=== PATIENT | male | born 1960 | race African-American/Black ===

== ENCOUNTER 2017-12-16 10:51 | Inpatient (IN) | payer OTHER ==
[2017-12-16 10:58] VITALS: BMI 32.3
--- NOTE | 2017-12-16 12:09 | PDOC ---
History of Present Illness - General History Source: Patient Exam Limitations: No Limitations - History of Present Illness Initial Comments: 12/16/17 13:07 The patient is a 57 year old male with a significant PMH of asthma, HTN, and hepatitis C who presents to the emergency department with hemoptysis over the past 3 days. He reports coughing up about 1 pint of edvin red blood with associated wheezing and shortness of breath over the last 3 days, and notes associated substernal chest pain only when he coughs. He reports using his Nebulizer 4 times over the past 3 days to no relief. The patient reports eating soup earlier today and coughing it up with blood. He also notes some dark stool and some nausea over the past 3 days but denies vomiting. The patient denies dizziness or lightheadedness. He denies any fevers or weight loss. He denies contact with incarcerated people. The patient denies headache and dizziness. Denies chills, vomiting, diarrhea, and constipation. Denies dysuria, frequency, urgency, or hematuria. Allergies: NKA Past surgical history: None reported. Social history: No reported cigarette, alcohol, or drug use. PCP: None reported. <Yasmany Womack - Last Filed: 12/16/17 17:31> <Aicha Ram - Last Filed: 12/19/17 13:49> - General Chief Complaint: Hemoptysis Stated Complaint: COUGHING BLOOD Time Seen by Provider: 12/16/17 12:02 Past History <Yasmany Womack - Last Filed: 12/16/17 17:31> - Past Medical History Asthma: Yes Cancer: No Cardiac Disorders: (heart murmur) CVA: No COPD: No CHF: No Dementia: No Diabetes: No GI Disorders: No Disorders: No HTN: Yes Hypercholesterolemia: No Liver Disease: No Seizures: No Thyroid Disease: No - Immunization History Immunization Up to Date: Yes - Suicide/Smoking/Psychosocial Hx Smoking History: Never smoked Have you smoked in the past 12 months: No Information on smoking cessation initiated: No Hx Alcohol Use: No Drug/Substance Use Hx: No Substance Use Type: None <Aicha Ram - Last Filed: 12/19/17 13:49> - Past Medical History Allergies/Adverse Reactions: Allergies Allergy/AdvReac Type Severity Reaction Status Date / Time No Known Allergies Allergy Verified 12/16/17 11:59 Home Medications: Ambulatory Orders Verapamil HCl [Verapamil ER] 240 mg PO DAILY 08/02/15 Azithromycin [Zithromax -] 250 mg PO UTDICT #6 tab 03/10/16 Ledipasvir/Sofosbuvir [Harvoni 90-400 mg Tablet] 1 each PO DAILY 03/10/16 levoFLOXacin [Levaquin -] 500 mg PO DAILY #7 tablet 06/03/16 Emtricitab/Rilpiviri/Tenof Ala [Odefsey Tablet] 1 each PO DAILY 12/17/17 Review of Systems - Review of Systems Able to Perform ROS?: Yes Comments:: 12/16/17 13:08 GENERAL/CONSTITUTIONAL: No fever or chills. No weakness. HEAD, EYES, EARS, NOSE AND THROAT: No change in vision. No ear pain or discharge. No sore throat. CARDIOVASCULAR: (+) Substernal chest pain only associated with cough. (+) Shortness of breath. RESPIRATORY: (+) Hemoptysis with associated wheezing. No cough, wheezing, or hemoptysis. GASTROINTESTINAL: (+) Dark stool. (+) Nausea. No vomiting, diarrhea or constipation. GENITOURINARY: No dysuria, frequency, or change in urination. MUSCULOSKELETAL: No joint or muscle swelling or pain. No neck or back pain. SKIN: No rash NEUROLOGIC: No headache, vertigo, loss of consciousness, or change in strength/ sensation. ENDOCRINE: No increased thirst. No abnormal weight change. HEMATOLOGIC/LYMPHATIC: No anemia, easy bleeding, or history of blood clots. ALLERGIC/IMMUNOLOGIC: No hives or skin allergy. <Yasmany Womack - Last Filed: 12/16/17 17:31> *Physical Exam - Vital Signs Last Vital Signs Temp Pulse Resp BP Pulse Ox 98.2 F 82 18 136/80 97 12/16/17 10:55 12/16/17 10:55 12/16/17 10:55 12/16/17 10:55 12/16/17 10:55 <Yasmany Womack - Last Filed: 12/16/17 17:31> - Vital Signs Last Vital Signs Temp Pulse Resp BP Pulse Ox 98.2 F 82 18 136/80 97 12/16/17 10:55 12/16/17 10:55 12/16/17 10:55 12/16/17 10:55 12/16/17 10:55 <Aicha Ram - Last Filed: 12/19/17 13:49> Heart Score/ECG Review - ECG Impressions Comment:: EKG read 18:08- afib rate 96 bpm, inv T to inf leads and V4-6 Similar to prior EKG <Aicha Ram - Last Filed: 12/19/17 13:49> ED Treatment Course - LABORATORY CBC & Chemistry Diagram: 12/16/17 13:15 12/16/17 13:15 <Yasmany Womack - Last Filed: 12/16/17 17:31> - LABORATORY CBC & Chemistry Diagram: 12/19/17 06:40 12/19/17 06:40 <Aicha Ram - Last Filed: 12/19/17 13:49> Medical Decision Making - Medical Decision Making Pt initially admitted based on amount of gross hemoptysis. On initial history I discussed concern for TB, he did not endorse any prior history. However, subsequently, he endorsed history of prior treatment for TB when evaluated by pulm. Will isolate. Admitted to hospitalist. <Aicha Ram - Last Filed: 12/19/17 13:49> *DC/Admit/Observation/Transfer - Attestations Scribe Attestion: 12/16/17 13:08 Documentation prepared by Yasmany Womack, acting as medical technologist blood bank for Aicha Ram MD. <Yasmany Womack - Last Filed: 12/16/17 17:31> - Discharge Dispostion Admit: Yes <Aicha Ram - Last Filed: 12/19/17 13:49> Diagnosis at time of Disposition: Pneumonia Asthma Qualifiers: Asthma severity: unspecified severity Asthma persistence: unspecified Asthma complication type: unspecified Qualified Code(s): J45.909 - Unspecified asthma, uncomplicated Asthma exacerbation Qualifiers: Asthma severity: unspecified severity Asthma persistence: unspecified Qualified Code(s): J45.901 - Unspecified asthma with (acute) exacerbation - Discharge Dispostion Condition at time of disposition: Stable
[2017-12-16] MEDS ORDERED: guaiFENesin/CODEINE 10 ML UNIT-DOSE CUPS PO ONE (13:07)
[2017-12-16] MEDS ORDERED: predniSONE 20 MG TABLET (UD) PO ONE (13:07)
[2017-12-16 13:26] LABS: BASO % 0.9 % (0-2.0); EOS % 2.4 % (0-4.5); HEMATOCRIT 40.6 % (35.4-49); HEMOGLOBIN 13.4 GM/dL (11.7-16.9); LYMPH % 25.5 % (8-40); MCH 35.4 pg (25.7-33.7); MCHC 33.1 g/dl (32.0-35.9); MEAN PLT VOLUME 9.1 fl (7.5-11.1); MONO % 10.1 % (3.8-10.2); NEUT % 61.1 % (42.8-82.8); PLATELET COUNT 65 K/MM3 (134-434); RBC 3.79 M/mm3 (4.00-5.60); WHITE BLOOD COUNT 3.8 K/mm3 (4.0-10.0)
[2017-12-16] MEDS: ALBUTEROL SO4 2.5/IPRATROPIUM 0.5 INH SOL 3 ML VIAL.NEB. NEB SCH ×2 (13:28→13:51)
[2017-12-16 14:02] LABS: ALBUMIN 2.8 g/dl (3.4-5.0); ANION GAP 5 (8-16); BILIRUBIN,TOTAL 2.7 mg/dL (0.2-1.0); BLOOD UREA NITROGEN 10 mg/dL (7-18); CALCIUM 7.9 mg/dL (8.5-10.1); CHLORIDE 109 mmol/L (98-107); CO2 27 mmol/L (21-32); CREATININE 0.9 mg/dL (0.7-1.3); GLUCOSE,RANDOM 107 mg/dL (74-106); POTASSIUM 4.2 mmol/L (3.5-5.1); SGOT/AST 74 U/L (15-37); SGPT/ALT 50 U/L (12-78); SODIUM 141 mmol/L (136-145); TOT PROT 7.2 g/dl (6.4-8.2)
[2017-12-16 14:03] LABS: ALK PHOS 98 U/L (45-117)
[2017-12-16] MEDS ORDERED: AZITHROMYCIN IVPB 500 MG in DEXTROSE 5%-WATER - 250 ML IVPB ONE (15:31)
[2017-12-16] MEDS ORDERED: CEFTRIAXONE 1 GM in DEXTROSE 5%-WATER - 50 ML IVPB ONE (15:31)
--- NOTE | 2017-12-16 17:09 | HP ---
Admitting History and Physical - Admission History of Present Illness: HPI Briefly, this 57 year old male with a significant PMH of asthma, HTN, cirrhosis , used to do heroine, TB x2, once treated 20 years ago and again in 2005. In 2005 he also had pleural effusion s/p CT placement with pustulant TB drainage, he reports this happened while he was being treated for Hep C. Today he presents with hemoptysis over the past 3 days, dark blood then light then dark. He had increased sob and using his inhaler with little relief. Today he was on the way to PMD, opened window in car which incited a coughing attack and he coughed up blood and chicken noodle soup. He told his friend to take take him to ED. He denies fever, chills, dai, dizziness, chest pain. He was incarcerated many years ago. History Source: Patient Limitations to Obtaining History: No Limitations - Past Medical History Cardiovascular: Yes: HTN Pulmonary: Yes: Asthma Hepatobiliary: Yes: Cirrhosis, Hepatitis C (s/p harvoni) - Smoking History Smoking history: Never smoked Have you smoked in the past 12 months: No - Alcohol/Substance Use Hx Alcohol Use: No - Social History Usual Living Arrangement: Yes: Alone ADL: Independent Occupation: unemployed History of Recent Travel: No Home Medications - Allergies Allergies/Adverse Reactions: Allergies Allergy/AdvReac Type Severity Reaction Status Date / Time No Known Allergies Allergy Verified 12/16/17 11:59 - Home Medications Home Medications: Ambulatory Orders Verapamil HCl [Verapamil ER] 240 mg PO DAILY 08/02/15 Azithromycin [Zithromax -] 250 mg PO UTDICT #6 tab 03/10/16 Ledipasvir/Sofosbuvir [Harvoni 90-400 mg Tablet] 1 each PO DAILY 03/10/16 levoFLOXacin [Levaquin -] 500 mg PO DAILY #7 tablet 06/03/16 Unobtainable [Unobtainable] 12/16/17 Family Disease History - Family Disease History Family Disease History: CA: Mother (bone), Other: Father (unknown medical problems) Review of Systems - Review of Systems Constitutional: reports: No Symptoms Eyes: reports: No Symptoms HENT: reports: No Symptoms Neck: reports: No Symptoms Cardiovascular: reports: No Symptoms Respiratory: reports: Hemoptysis, SOB Gastrointestinal: reports: No Symptoms Genitourinary: reports: No Symptoms Musculoskeletal: reports: No Symptoms Integumentary: reports: No Symptoms Neurological: reports: No Symptoms Endocrine: reports: No Symptoms Hematology/Lymphatic: reports: No Symptoms Physical Examination Vital Signs: Vital Signs Temperature 98.2 F 12/16/17 10:55 Pulse Rate 82 12/16/17 10:55 Respiratory Rate 18 12/16/17 10:55 Blood Pressure 136/80 12/16/17 10:55 O2 Sat by Pulse Oximetry (%) 97 12/16/17 10:55 Constitutional: Yes: Calm Eyes: Yes: Conjunctiva Clear HENT: Yes: Atraumatic Neck: Yes: Supple Cardiovascular: Yes: Regular Rate and Rhythm, S1, S2 Respiratory: Yes: Regular, Diminished (clear), Rhonchi Gastrointestinal: Yes: Normal Bowel Sounds, Soft, Abdomen, Obese Renal/: Yes: WNL Musculoskeletal: Yes: WNL Extremities: Yes: WNL Edema: No Neurological: Yes: Alert, Oriented, Cran Nerves II-XII Intact Psychiatric: Yes: Alert, Oriented Labs: CBC, BMP 12/16/17 13:15 12/16/17 13:15 Imaging - Results Chest X-ray: Report Reviewed, Image Reviewed Cat Scan: Report Reviewed, Image Reviewed (pleural effusion L>R, pericardial effusion, consolidation v atelectatsis) Assessment/Plan Assessment: 57 year old male admitted with hemoptysis Plan: 1. Hemoptysis with +/- underlying pna, pleural effusion, pericardial effusion - hx of TB - Isolation precautions - Quant gold - AFB x3 - CXR in am - Give x1 dose vanco, received azithro/ceftriaxone - ID for further rec - Pulm seeing 2. Acute Asthma exacerbation - Continue albuteral nebs prn - Start medrol 40mg q8 3. HTN - Continue verapamil 240mg daily 4. Hep c, cirrhosis - Continue harvoni - Check INR 5. Thrombocytopenia - Due to above - Trend - Monitor h&h due to hemoptysis 6. DVT - SCDs Visit type - Emergency Visit Emergency Visit: Yes ED Registration Date: 12/16/17 Care time: The patient presented to the Emergency Department on the above date and was hospitalized for further evaluation of their emergent condition. - New Patient This patient is new to me today: Yes Date on this admission: 12/16/17 - Critical Care Critical Care patient: No
--- NOTE | 2017-12-16 17:41 | PN ---
Progress Note (short form) - Note Progress Note: PULMONARY CONSULTATION DICTATED 12/16/17 IMP HEMOPTYSIS ? PNEUMONIA HEP C CIRRHOSIS ASTHMA H/O TB PLAN IV ANTIBIOTICS INHALED BRONCHODILATORS O2 PRN STEROIDS QUANTIFY HEMOPTYSIS SPUTUM AFB CHECK INR F/U CHEST X-RAYS DR MENA Problem List - Problems (1) Hemoptysis Code(s): R04.2 - HEMOPTYSIS (2) Hepatitis C Code(s): B19.20 - UNSPECIFIED VIRAL HEPATITIS C WITHOUT HEPATIC COMA (3) Pneumonia Code(s): J18.9 - PNEUMONIA, UNSPECIFIED ORGANISM (4) Cirrhosis Code(s): K74.60 - UNSPECIFIED CIRRHOSIS OF LIVER (5) H/O TB (tuberculosis) Code(s): Z86.11 - PERSONAL HISTORY OF TUBERCULOSIS (6) Coagulopathy Code(s): D68.9 - COAGULATION DEFECT, UNSPECIFIED
[2017-12-16] MEDS ORDERED: ALBUTEROL SO4 0.083% IH SOL 2.5 MG/3 ML VIAL.NEB. NEB PRN (17:44)
[2017-12-16 17:47] LABS: URINE APPEARANCE CLEAR; URINE BILIRUBIN NEGATIVE (NEGATIVE); URINE BLOOD NEGATIVE (NEGATIVE); URINE COLOR LTYELLOW; URINE GLUCOSE (UA) NEGATIVE (NEGATIVE); URINE KETONE NEGATIVE (NEGATIVE); URINE LEUK ESTERASE NEGATIVE (NEGATIVE); URINE NITRITE NEGATIVE (NEGATIVE); URINE PROTEIN NEGATIVE (NEGATIVE); URINE UROBILINOGEN NEGATIVE mg/dL (0.2-1.0)
[2017-12-16 18:04] LABS: INR 2.46 (0.82-1.09); PROTHROMBIN TIME (PATIENT) 27.8 SEC (9.98-11.88)
[2017-12-16] MEDS ORDERED: VANCOMYCIN 1,000 MG in DEXTROSE 5%-WATER - 250 ML IVPB ONE (18:15)
[2017-12-16] MEDS: methylPREDNISolone NA SUCC 40 MG/1 ML VIAL IVPUSH SCH (18:30)
--- NOTE | 2017-12-16 18:47 | CON.ID ---
Consult Consult Specialty:: infectious diseases Reason for Consultation:: hemoptysis,lung cavity - History of Present Illness Chief Complaint: [email or web address] History of Present Illness: 57 year old male with a significant PMH of asthma, HTN, cirrhosis, used to do heroine, TB x2, once treated 20 years ago and again in 2005. In 2005 he also had pleural effusion s/p CT placement with pustulant TB drainage, he reports this happened while he was being treated for Hep C. Today he presents with hemoptysis over the past 3 days, dark blood then light then dark. He had increased sob and using his inhaler with little relief. Today he was on the way to [place]D, opened window in car which incited a coughing attack and he coughed up blood and chicken noodle soup. He told his friend to take take him to ED. He denies fever, chills, dai, dizziness, chest pain. He was incarcerated many years ago. according to the patient this attack came on suddenly and that is why he came to the hospital he denies that he does drugs any more or any other issues - History Source History Provided By: Patient Limitations to Obtaining History: No Limitations - Past Medical History Cardio/Vascular: Yes: HTN Pulmonary: Yes: Asthma Hepatobiliary: Yes: Cirrhosis, Hepatitis C (s/p harvoni) - Alcohol/Substance Use Hx Alcohol Use: No - Smoking History Smoking history: Never smoked Have you smoked in the past 12 months: No - Social History ADL: Independent Occupation: unemployed History of Recent Travel: No Home Medications - Allergies Allergies/Adverse Reactions: Allergies Allergy/AdvReac Type Severity Reaction Status Date / Time No Known Allergies Allergy Verified 12/16/17 11:59 - Home Medications Home Medications: Ambulatory Orders Verapamil HCl [Verapamil ER] 240 mg PO DAILY 08/02/15 Azithromycin [Zithromax -] 250 mg PO UTDICT #6 tab 03/10/16 Ledipasvir/Sofosbuvir [Harvoni 90-400 mg Tablet] 1 each PO DAILY 03/10/16 levoFLOXacin [Levaquin -] 500 mg PO DAILY #7 tablet 06/03/16 Emtricitab/Rilpiviri/Tenof Ala [Odefsey Tablet] 1 each PO DAILY 12/17/17 Family Disease History - Family Disease History Family Disease History: CA: Mother (bone), Other: Father (unknown medical problems) Review of Systems - Review of Systems Constitutional: reports: No Symptoms Eyes: reports: No Symptoms HENT: reports: No Symptoms Neck: reports: No Symptoms Cardiovascular: reports: No Symptoms Respiratory: reports: Cough, Hemoptysis, SOB, SOB on Exertion Gastrointestinal: reports: No Symptoms Genitourinary: reports: No Symptoms Breasts: reports: No Symptoms Reported Musculoskeletal: reports: No Symptoms Integumentary: reports: No Symptoms Neurological: reports: No Symptoms Endocrine: reports: No Symptoms Hematology/Lymphatic: reports: No Symptoms Psychiatric: reports: No Symptoms Physical Exam Vital Signs: Vital Signs Temperature 98.2 F 12/16/17 10:55 Pulse Rate 101 H 12/16/17 17:02 Respiratory Rate 18 12/16/17 10:55 Blood Pressure 138/95 12/16/17 17:02 O2 Sat by Pulse Oximetry (%) 97 12/16/17 17:02 Constitutional: Yes: Well Nourished, No Distress, Calm Cardiovascular: Yes: Regular Rate and Rhythm Respiratory: Yes: Regular, Poor Air Entry, Rhonchi, Other Gastrointestinal: Yes: Normal Bowel Sounds, Soft Musculoskeletal: Yes: WNL Extremities: Yes: WNL Neurological: Yes: Alert, Oriented Psychiatric: Yes: Alert, Oriented Labs: CBC, BMP 12/16/17 13:15 12/16/17 13:15 Imaging - Results Chest X-ray: Report Reviewed, Image Reviewed Cat Scan: Report Reviewed, Image Reviewed Assessment/Plan hemoptysis r/o tb h/o of tb hepc cirrhoisis r/o hiv drug abuse plan will start patient on vanco and zosyn await for all results to come back pul on case work up for hiv
[2017-12-17] MEDS: methylPREDNISolone NA SUCC 40 MG/1 ML VIAL IVPUSH SCH ×3 (03:00→17:30)
[2017-12-17 06:41] LABS: HEMOGLOBIN 12.8 GM/dL (11.7-16.9); MCHC 34.7 g/dl (32.0-35.9); MEAN CELL VOLUME 106.5 fl (80-96); MEAN PLT VOLUME 10.4 fl (7.5-11.1); PLATELET COUNT 72 K/MM3 (134-434); RBC 3.47 M/mm3 (4.00-5.60); RDW 14.9 % (11.9-15.9)
[2017-12-17 06:43] LABS: INR 2.21 (0.82-1.09)
[2017-12-17 06:44] LABS: ADD RBC MORPHOLOGY YES
[2017-12-17 07:00] LABS: ALBUMIN 2.5 g/dl (3.4-5.0); ALK PHOS 90 U/L (45-117); ANION GAP 5 (8-16); BLOOD UREA NITROGEN 10 mg/dL (7-18); CALCIUM 7.6 mg/dL (8.5-10.1); CHLORIDE 109 mmol/L (98-107); CO2 25 mmol/L (21-32); CREATININE 0.8 mg/dL (0.7-1.3); GLUCOSE,RANDOM 105 mg/dL (74-106); POTASSIUM 4.2 mmol/L (3.5-5.1); SGOT/AST 59 U/L (15-37); SGPT/ALT 42 U/L (12-78); SODIUM 139 mmol/L (136-145); TOT PROT 6.6 g/dl (6.4-8.2)
[2017-12-17] MEDS ORDERED: PT OWN MED DRAWER 7, Y5N ONE ×3 (08:09→17:28)
[2017-12-17 08:49] LABS: MACROCYTOSIS 2+; PLATELET ESTIMATE DECREASED
--- NOTE | 2017-12-17 08:51 | EKG ---
Test Reason : Blood Pressure : / mmHG Vent. Rate : 096 BPM Atrial Rate : 288 BPM P-R Int : 000 ms QRS Dur : 106 ms QT Int : 394 ms P-R-T Axes : 000 030 214 degrees QTc Int : 497 ms ATRIAL FIBRILLATION PROLONGED QT ABNORMAL ECG WHEN COMPARED WITH ECG OF 10-MAR-2016 18:21, ATRIAL FIBRILLATION HAS REPLACED SINUS RHYTHM Confirmed by JAMA JOSE MD ([id number]) on 12/17/2017 8:50:43 AM Referred By: Confirmed By:JAMA JOSE MD
[2017-12-17] MEDS: VERAPAMIL HCL 240 MG E.R. TABLET (FP) PO SCH (09:26)
[2017-12-17] MEDS ORDERED: PATIENT'S OWN MEDICATION (NON-FORMULARY) (Ledipasvir/Sofosbuvir [Harvoni 90-400 Mg Tablet] PO SCH (10:00)
[2017-12-17] MEDS ORDERED: PATIENT'S OWN MEDICATION (NON-FORMULARY) (Verapamil Hcl [Verapamil Er] 240 MG) PO SCH (10:00)
--- NOTE | 2017-12-17 10:42 | PN ---
Physical Exam: SUBJECTIVE: Patient seen and examined at bedside. Feels better and states it is "easier" to breathe. OBJECTIVE: Vital Signs Period Temp Pulse Resp BP Sys/Martinez Pulse Ox Last 24 Hr 98.2 F-98.8 F 77-103 18-20 122-144/76-96 96-97 GENERAL: The patient is awake, alert, and fully oriented, in no acute distress. LUNGS: Bibasilar crackles. HEART: RRR, S1, S2. 2/6 systolic murmur. ABDOMEN: SNTND. +BS EXTREMITIES: 2+ pulses, warm, well-perfused, no edema. NEUROLOGICAL: Cranial nerves II through XII grossly intact. Normal speech, gait steady. PSYCH: Normal mood, normal affect. SKIN: Discoloration to bilateral lower LE. Laboratory Results - last 24 hr 12/16/17 12/16/17 12/16/17 13:15 13:15 17:10 WBC 3.8 L D RBC 3.79 L Hgb 13.4 Hct 40.6 MCV 107.0 H MCH 35.4 H MCHC 33.1 RDW 15.0 Plt Count 65 L MPV 9.1 D Total Counted Neutrophils % 61.1 Neutrophils % (Manual) Band Neutrophils % Lymphocytes % 25.5 D Lymphocytes % (Manual) Monocytes % 10.1 Monocytes % (Manual) Eosinophils % 2.4 D Basophils % 0.9 Myelocytes % (Man) Platelet Estimate Macrocytosis PT with INR INR Sodium 141 Potassium 4.2 D Chloride 109 H Carbon Dioxide 27 Anion Gap 5 L BUN 10 D Creatinine 0.9 Creat Clearance w eGFR > 60 Random Glucose 107 H Calcium 7.9 L Total Bilirubin 2.7 H AST 74 H D ALT 50 D Alkaline Phosphatase 98 Total Protein 7.2 Albumin 2.8 L Urine Color Ltyellow Urine Appearance Clear Urine pH 8.0 D Ur Specific [place] 1.011 Urine Protein Negative Urine Glucose (UA) Negative Urine Ketones Negative Urine Blood Negative Urine Nitrite Negative Urine Bilirubin Negative Urine Urobilinogen Negative Ur Leukocyte Esterase Negative 12/16/17 12/17/17 12/17/17 17:40 05:05 05:05 WBC 6.0 D RBC 3.47 L Hgb 12.8 Hct 37.0 MCV 106.5 H MCH 37.0 H MCHC 34.7 RDW 14.9 Plt Count 72 L MPV 10.4 D Total Counted 100 Neutrophils % No Result Required. Neutrophils % (Manual) 89.0 H Band Neutrophils % 1.0 Lymphocytes % No Result Required. Lymphocytes % (Manual) 5.0 L Monocytes % Monocytes % (Manual) 4 Eosinophils % Basophils % Myelocytes % (Man) 1 Platelet Estimate Decreased Macrocytosis 2+ PT with INR 27.80 H 25.00 H INR 2.46 H 2.21 H Sodium Potassium Chloride Carbon Dioxide Anion Gap BUN Creatinine Creat Clearance w eGFR Random Glucose Calcium Total Bilirubin AST ALT Alkaline Phosphatase Total Protein Albumin Urine Color Urine Appearance Urine pH Ur Specific [place] Urine Protein Urine Glucose (UA) Urine Ketones Urine Blood Urine Nitrite Urine Bilirubin Urine Urobilinogen Ur Leukocyte Esterase 12/17/17 05:05 WBC RBC Hgb Hct MCV MCH MCHC RDW Plt Count MPV Total Counted Neutrophils % Neutrophils % (Manual) Band Neutrophils % Lymphocytes % Lymphocytes % (Manual) Monocytes % Monocytes % (Manual) Eosinophils % Basophils % Myelocytes % (Man) Platelet Estimate Macrocytosis PT with INR INR Sodium 139 Potassium 4.2 Chloride 109 H Carbon Dioxide 25 Anion Gap 5 L BUN 10 Creatinine 0.8 Creat Clearance w eGFR > 60 Random Glucose 105 Calcium 7.6 L Total Bilirubin 2.0 H D AST 59 H D ALT 42 Alkaline Phosphatase 90 Total Protein 6.6 Albumin 2.5 L Urine Color Urine Appearance Urine pH Ur Specific [place] Urine Protein Urine Glucose (UA) Urine Ketones Urine Blood Urine Nitrite Urine Bilirubin Urine Urobilinogen Ur Leukocyte Esterase Active Medications Generic Name Dose Route Start Last Admin Trade Name Freq PRN Reason Stop Dose Admin Albuterol Sulfate 1 amp 12/16/17 17:44 Ventolin 0.083% Nebulizer Soln - NEB Q4H PRN SHORT OF BREATH/WHEEZING Methylprednisolone Sodium Succinate 40 mg 12/16/17 18:00 12/17/17 09:26 Solu-Medrol - IVPUSH 40 mg Q8H-IV KAREN Administration Verapamil HCl 240 mg 12/17/17 10:00 12/17/17 09:26 Calan Sr - PO 240 mg DAILY KAREN Administration ASSESSMENT/PLAN: A: 57 year old HIV+ male admitted with hemoptysis P: Hemoptysis with ?underlying pna, pleural effusion, pericardial effusion - hx of TB x2 - Respiratory isolation precautions - Quantiferon pending - AFB x3 - CXR in am - Give x1 dose vanco, received azithro/ceftriaxone - ID pending - Pulm following Acute Asthma exacerbation - Continue albuteral nebs prn - Start medrol 40mg q8 HTN - Continue verapamil 240mg daily HIV+ - followed at [facility]- [phone] - Odefsey 1 tab daily Hep c, cirrhosis - completed anaya 12/2016 - Check INR Thrombocytopenia - likely from HCV/ cirrhosis - Trend - Monitor h&h F/E/N - regular diet - replete prn PPX - hold chemical AC due to thrombocytopenia - scd - OOB Visit type - Emergency Visit Emergency Visit: Yes ED Registration Date: 12/16/17 Care time: The patient presented to the Emergency Department on the above date and was hospitalized for further evaluation of their emergent condition. - New Patient This patient is new to me today: Yes Date on this admission: 12/17/17 - Critical Care Critical Care patient: No
--- NOTE | 2017-12-17 10:49 | PN ---
Progress Note, Physician History of Present Illness: pulmonary alert,feeling better,less hemoptysis - Current Medication List Current Medications: Active Medications Albuterol Sulfate (Ventolin 0.083% Nebulizer Soln -) 1 amp NEB Q4H PRN PRN Reason: SHORT OF BREATH/WHEEZING Methylprednisolone Sodium Succinate (Solu-Medrol -) 40 mg IVPUSH Q8H-IV KAREN Last Admin: 12/17/17 09:26 Dose: 40 mg Verapamil HCl (Calan Sr -) 240 mg PO DAILY KAREN Last Admin: 12/17/17 09:26 Dose: 240 mg - Objective Vital Signs: Vital Signs Temperature 98.8 F 12/17/17 07:52 Pulse Rate 94 H 12/17/17 07:52 Respiratory Rate 20 12/17/17 07:56 Blood Pressure 139/94 12/17/17 07:52 O2 Sat by Pulse Oximetry (%) 96 12/17/17 07:56 Constitutional: Yes: Well Nourished, Calm Eyes: Yes: WNL HENT: Yes: WNL Neck: Yes: WNL Cardiovascular: Yes: Regular Rate and Rhythm, S1, S2 Respiratory: Yes: Rales (crackles on left) Gastrointestinal: Yes: Normal Bowel Sounds, Soft Extremities: Yes: WNL Edema: No Labs: CBC, BMP 12/17/17 05:05 12/17/17 05:05 INR, PTT INR 2.21 (0.82-1.09) H 12/17/17 05:05 Laboratory Tests 12/16/17 12/17/17 17:40 05:05 PT with INR 27.80 H 25.00 H INR 2.46 H 2.21 H Assessment/Plan IMP HEMOPTYSIS ? PNEUMONIA HEP C CIRRHOSIS ASTHMA H/O TB ? H/O HIV COAGULOPATHY PLAN IV ANTIBIOTICS PER ID INHALED BRONCHODILATORS O2 PRN STEROIDS QUANTIFY HEMOPTYSIS SPUTUM AFB MONITOR INR,PLT CT F/U CHEST X-RAYS DR MENA
--- NOTE | 2017-12-17 12:03 | CONS ---
PULMONARY CONSULTATION DATE OF CONSULTATION: 12/16/2017 REFERRING PHYSICIAN: HISTORY OF PRESENT ILLNESS: The patient is a 57-year-old black male with a past medical history which includes asthma; hypertension; hepatitis C status post Harvoni; history of pulmonary TB 20 years ago, treated with apparently 4 medications, had recurrent disease apparently in 2005, with pleural TB status post chest drain drainage, again was treated. He is a nonsmoker, admitted to [facility] with complaint of hemoptysis. Patient states he started developing shortness of breath and cough 2 days prior to admission. He states that at the time, he took his inhaled bronchodilator which offered him some improvement. He said cough was productive of dark blood, but then it turned bright red. He denied any fevers. Did have some chills. No hemoptysis. Denies any chest pain. He states that today, prior to admission, he started eating chicken soup because he was not feeling well and started coughing up blood again, at which time, he presented to the emergency room. In the ER, he was noted to have a moderate amount of hemoptysis. He underwent a CT scan of the chest which revealed left-sided infiltrate which was possibly pneumonia and/or possible heme. He does have a history of Legionella pneumonia approximately one year ago. There is no history of occupational exposure to chemicals or fumes. PAST MEDICAL HISTORY: Again includes hepatitis C status post Harvoni; TB status post chest tube, status post treatment; asthma; hypertension. SOCIAL HISTORY: Nonsmoker. Positive history of substance abuse, quit many years ago. No occupational exposures. REVIEW OF SYSTEMS: No orthopnea. No PND. No chest pain. No palpitations. Positive cough. Positive hemoptysis. No shortness of breath. No fever. No chills. No weight loss. No night sweats. MEDICATIONS PRIOR TO ADMISSION: Zithromax, verapamil, Harvoni and Levaquin. PHYSICAL EXAMINATION: General: The patient is a well-developed, well-nourished male, awake, alert, in no acute distress. Vital Signs: He is afebrile. Blood pressure 136/80, respiratory rate is 18, O2 saturation is 97% on room air. HEENT: His head is normocephalic, atraumatic. Neck: Supple. Heart: Regular. S1, S2. Chest: Clear. Abdomen: Soft. Bowel sounds positive. Extremities: No signs of edema. LABORATORY DATA: WBC is 3.8, hemoglobin 13.8, hematocrit 40.6, platelet count of 65,000. BUN 10, creatinine 0.9. AST is 74. A chest CT revealed bilateral pleural effusions, small pericardial effusion, likely infiltrate in left lung field, atelectasis at the left base as well as increased alveolar markings throughout the left lung field, possibly inflammatory, possible heme. IMPRESSION: 1. Hemoptysis, etiology to be determined, possible pneumonia, cannot exclude possible endobronchial lesion, cannot exclude possible bronchiectasis. 2. History of tuberculosis. 3. Asthma. 4. History of hepatitis C. 5. Cirrhosis. 6. Thrombocytopenia. PLAN: Antibiotic therapy, supplemental O2. Quantify hemoptysis, check INR. Close observation. Sputum for AF[employer]. ALLISON MENA M.D. [id number]
--- NOTE | 2017-12-17 13:36 | PN ---
Progress Note, Physician History of Present Illness: patient says he is feeling much better today no hemoptysis patient mentions that he is taking hiv meds and he is hiv which he refused to accept yesterday he says he has been undetectable since then says only he and his knows that - Current Medication List Current Medications: Active Medications Albuterol Sulfate (Ventolin 0.083% Nebulizer Soln -) 1 amp NEB Q4H PRN PRN Reason: SHORT OF BREATH/WHEEZING Methylprednisolone Sodium Succinate (Solu-Medrol -) 40 mg IVPUSH Q8H-IV KAREN Last Admin: 12/17/17 09:26 Dose: 40 mg Non-Formulary Medication (Emtricitab/Rilpiviri/Tenof Ala [Odefsey Tablet]) 1 each PO DAILY KAREN Verapamil HCl (Calan Sr -) 240 mg PO DAILY KAREN Last Admin: 12/17/17 09:26 Dose: 240 mg - Objective Vital Signs: Vital Signs Temperature 98.8 F 12/17/17 07:52 Pulse Rate 94 H 12/17/17 07:52 Respiratory Rate 20 12/17/17 07:56 Blood Pressure 139/94 12/17/17 07:52 O2 Sat by Pulse Oximetry (%) 96 12/17/17 07:56 Constitutional: Yes: No Distress, Calm Cardiovascular: Yes: Regular Rate and Rhythm Respiratory: Yes: Regular, Poor Air Entry Gastrointestinal: Yes: Normal Bowel Sounds, Soft Musculoskeletal: Yes: WNL Extremities: Yes: WNL Neurological: Yes: Alert, Oriented Psychiatric: Yes: Alert, Oriented Labs: CBC, BMP 12/17/17 05:05 12/17/17 05:05 INR, PTT INR 2.21 (0.82-1.09) H 12/17/17 05:05 Assessment/Plan hemoptysis r/o tb h/o of tb hepc cirrhoisis hiv drug abuse plan continue abx await for tb result rest as per primary team patient is on his meds it seems patient follows with [facility] check cd4 count
[2017-12-17] MEDS ORDERED: VANCOMYCIN 1,250 MG in DEXTROSE 5%-WATER - 250 ML IVPB SCH (14:30)
[2017-12-17] MEDS: PIPERACILLIN/TAZOB 3.375 GM 3.375 GM in DEXTROSE 5%-WATER - 50 ML IVPB SCH ×2 (15:02→17:30)
[2017-12-17] MEDS ORDERED: ACETAMINOPHEN 325 MG TABLET (FP) ONE (20:52)
[2017-12-17] MEDS ORDERED: MAG HYDROX/AL HYDROX/SIMETH 30 ML UNIT-DOSE CUP PO PRN (23:44)
[2017-12-18] MEDS ORDERED: SODIUM PHOSPHATE/NA BIPHOS 133 ML ENEMA PR ONE (01:48)
[2017-12-18] MEDS ORDERED: SIMETHICONE 80 MG TAB.CHEW (FP) PO PRN (01:48)
[2017-12-18] MEDS ORDERED: PT OWN MED DRAWER 7, Y5N ONE (02:40)
[2017-12-18] MEDS: methylPREDNISolone NA SUCC 40 MG/1 ML VIAL IVPUSH SCH ×3 (03:00→17:18)
[2017-12-18] MEDS: PIPERACILLIN/TAZOB 3.375 GM 3.375 GM in DEXTROSE 5%-WATER - 50 ML IVPB SCH ×3 (03:00→17:18)
[2017-12-18 09:02] LABS: HEMATOCRIT 39.9 % (35.4-49); HEMOGLOBIN 13.4 GM/dL (11.7-16.9); MCH 35.9 pg (25.7-33.7); MCHC 33.6 g/dl (32.0-35.9); MEAN CELL VOLUME 106.9 fl (80-96); MEAN PLT VOLUME 9.5 fl (7.5-11.1); PLATELET COUNT 83 K/MM3 (134-434); RBC 3.73 M/mm3 (4.00-5.60); RDW 15.3 % (11.9-15.9)
[2017-12-18 09:30] LABS: ALK PHOS 104 U/L (45-117); ANION GAP 7 (8-16); BILIRUBIN,TOTAL 2.4 mg/dL (0.2-1.0); BLOOD UREA NITROGEN 31 mg/dL (7-18); CALCIUM 8.4 mg/dL (8.5-10.1); CHLORIDE 107 mmol/L (98-107); CO2 22 mmol/L (21-32); CREATININE 2.4 mg/dL (0.7-1.3); GLUCOSE,RANDOM 124 mg/dL (74-106); POTASSIUM 4.4 mmol/L (3.5-5.1); SGOT/AST 65 U/L (15-37); SGPT/ALT 54 U/L (12-78); SODIUM 136 mmol/L (136-145); TOT PROT 7.7 g/dl (6.4-8.2)
[2017-12-18 09:32] LABS: MACROCYTOSIS 2+; PLATELET ESTIMATE DECREASED; TEAR DROP CELLS FEW
[2017-12-18 09:40] LABS: LIPASE 301 U/L (73-393)
[2017-12-18] MEDS: VERAPAMIL HCL 240 MG E.R. TABLET (FP) PO SCH (10:10)
--- NOTE | 2017-12-18 11:13 | PN ---
Progress Note, Physician History of Present Illness: PULMONARY ALERT,NAD,HEMOPTYSIS RESOLVING - Current Medication List Current Medications: Active Medications Al Hydroxide/Mg Hydroxide (Mylanta Oral Suspension -) 30 ml PO Q6H PRN PRN Reason: DYSPEPSIA Albuterol Sulfate (Ventolin 0.083% Nebulizer Soln -) 1 amp NEB Q4H PRN PRN Reason: SHORT OF BREATH/WHEEZING Vancomycin HCl 1,250 mg/ (Dextrose) 250 mls @ 166.667 mls/hr IVPB Q24H KAREN PRN Reason: Protocol Last Admin: 12/17/17 15:02 Dose: 166.667 mls/hr Piperacillin Sod/Tazobactam (Sod 3.375 gm/ Dextrose) 50 mls @ 100 mls/hr IVPB Q8H-IV KAREN PRN Reason: Protocol Last Admin: 12/18/17 10:10 Dose: 100 mls/hr Methylprednisolone Sodium Succinate (Solu-Medrol -) 40 mg IVPUSH Q8H-IV KAREN Last Admin: 12/18/17 10:10 Dose: 40 mg Non-Formulary Medication (Emtricitab/Rilpiviri/Tenof Ala [Odefsey Tablet]) 1 each PO DAILY KAREN Simethicone (Mylicon -) 80 mg PO Q4H PRN PRN Reason: CONSTIPATION Last Admin: 12/18/17 10:10 Dose: 80 mg Verapamil HCl (Calan Sr -) 240 mg PO DAILY KAREN Last Admin: 12/18/17 10:10 Dose: 240 mg - Objective Vital Signs: Vital Signs Temperature 98.4 F 12/18/17 10:00 Pulse Rate 60 12/18/17 10:00 Respiratory Rate 20 12/18/17 10:00 Blood Pressure 116/59 12/18/17 10:00 O2 Sat by Pulse Oximetry (%) 96 12/18/17 09:00 Constitutional: Yes: Well Nourished, Calm Eyes: Yes: WNL HENT: Yes: WNL Neck: Yes: WNL Cardiovascular: Yes: Regular Rate and Rhythm, S1, S2 Respiratory: Yes: Diminished (FEWW CRACKLES ON LEFT), Rales Gastrointestinal: Yes: Normal Bowel Sounds, Soft Extremities: Yes: WNL Edema: No Labs: CBC, BMP 12/18/17 08:30 12/18/17 08:30 INR, PTT INR 2.21 (0.82-1.09) H 12/17/17 05:05 Problem List - Problems (1) Hemoptysis Code(s): R04.2 - HEMOPTYSIS (2) Hepatitis C Code(s): B19.20 - UNSPECIFIED VIRAL HEPATITIS C WITHOUT HEPATIC COMA (3) Pneumonia Code(s): J18.9 - PNEUMONIA, UNSPECIFIED ORGANISM (4) Cirrhosis Code(s): K74.60 - UNSPECIFIED CIRRHOSIS OF LIVER (5) H/O TB (tuberculosis) Code(s): Z86.11 - PERSONAL HISTORY OF TUBERCULOSIS (6) Coagulopathy Code(s): D68.9 - COAGULATION DEFECT, UNSPECIFIED Assessment/Plan IMP HEMOPTYSIS ? PNEUMONIA HEP C CIRRHOSIS ASTHMA H/O TB ? H/O HIV COAGULOPATHY XUAN ? LAB ERROR PLAN IV ANTIBIOTICS PER ID INHALED BRONCHODILATORS O2 PRN STEROIDS QUANTIFY HEMOPTYSIS SPUTUM [employer] MONITOR INR,PLT CT F/U CHEST X-RAYS STAT BMP DR MENA
[2017-12-18] MEDS ORDERED: SODIUM CHLORIDE 1,000 ML IV STA (11:16)
--- NOTE | 2017-12-18 12:24 | PN ---
Physical Exam: SUBJECTIVE: Patient seen and examined OBJECTIVE: Vital Signs Period Temp Pulse Resp BP Sys/Martinez Pulse Ox Last 24 Hr 97.5 F-98.8 F 60-78 20-20 105-128/59-80 96-100 GENERAL: The patient is awake, alert, and fully oriented, in no acute distress. LUNGS: Bibasilar crackles. HEART: RRR, S1, S2. 2/6 systolic murmur. ABDOMEN: SNTND. +BS EXTREMITIES: 2+ pulses, warm, well-perfused, no edema. NEUROLOGICAL: Cranial nerves II through XII grossly intact. Normal speech, gait steady. PSYCH: Normal mood, normal affect. SKIN: Discoloration to bilateral lower LE Laboratory Results - last 24 hr 12/18/17 12/18/17 08:30 08:30 WBC 14.0 H D RBC 3.73 L Hgb 13.4 Hct 39.9 MCV 106.9 H MCH 35.9 H MCHC 33.6 RDW 15.3 Plt Count 83 L MPV 9.5 Total Counted 100 Neutrophils % No Result Required. Neutrophils % (Manual) 83.0 H Lymphocytes % No Result Required. Lymphocytes % (Manual) 12.0 D Monocytes % (Manual) 5 Platelet Estimate Decreased Polychromasia 1+ Macrocytosis 2+ Tear Drop Cells Few Sodium 136 Potassium 4.4 Chloride 107 Carbon Dioxide 22 Anion Gap 7 L BUN 31 H D Creatinine 2.4 H D Creat Clearance w eGFR 28.14 Random Glucose 124 H Calcium 8.4 L Total Bilirubin 2.4 H AST 65 H ALT 54 D Alkaline Phosphatase 104 Total Protein 7.7 Albumin 3.0 L Lipase 301 Active Medications Generic Name Dose Route Start Last Admin Trade Name Freq PRN Reason Stop Dose Admin Al Hydroxide/Mg Hydroxide 30 ml 12/17/17 23:44 Mylanta Oral Suspension - PO Q6H PRN DYSPEPSIA Albuterol Sulfate 1 amp 12/16/17 17:44 Ventolin 0.083% Nebulizer Soln - NEB Q4H PRN SHORT OF BREATH/WHEEZING Piperacillin Sod/Tazobactam 50 mls @ 100 mls/hr 12/17/17 13:45 12/18/17 10:10 Sod 3.375 gm/ Dextrose IVPB 100 mls/hr Q8H-IV KAREN Administration Protocol Methylprednisolone Sodium Succinate 40 mg 12/16/17 18:00 12/18/17 10:10 Solu-Medrol - IVPUSH 40 mg Q8H-IV KAREN Administration Non-Formulary Medication 1 each 12/18/17 10:00 Emtricitab/Rilpiviri/Tenof Ala [Odefsey Tablet] PO DAILY KAREN Simethicone 80 mg 12/18/17 01:48 12/18/17 10:10 Mylicon - PO 80 mg Q4H PRN Administration CONSTIPATION Verapamil HCl 240 mg 12/17/17 10:00 12/18/17 10:10 Calan Sr - PO 240 mg DAILY KAREN Administration ASSESSMENT/PLAN: A: 57 year old HIV+ male admitted with hemoptysis P: Hemoptysis with ?underlying pna, pleural effusion, pericardial effusion - hx of TB x2 - Respiratory isolation precautions - Quantiferon pending - AFB x3 collected - CXR in am - Zosyn - ID following - Pulm following Acute Asthma exacerbation - albuterol nebs prn - methylpred 40mg q8 XUAN - Cr 0.9->0.8->2.4 ?lab error - repeat BMP - NS 1L bolus - hold vanco - ?hepatorenal syndrome - renal and abd u/s pending - urine Na HTN - Continue verapamil 240mg daily HIV+ - followed at [facility]- [phone] - Odefsey 1 tab daily - ID following Hep c, cirrhosis - completed [facility] 12/2016 - daily INR Thrombocytopenia - likely from HCV/ cirrhosis - Trend - Monitor h&h F/E/N - regular diet - replete prn PPX - hold chemical AC due to thrombocytopenia - scd - OOB Dispo- Requires continued inpatient observation Visit type - Emergency Visit Emergency Visit: Yes ED Registration Date: 12/16/17 Care time: The patient presented to the Emergency Department on the above date and was hospitalized for further evaluation of their emergent condition. - New Patient This patient is new to me today: No - Critical Care Critical Care patient: No
--- NOTE | 2017-12-18 12:53 | CON.ID ---
Consult Consult Specialty:: infectious disease Referred by:: dr kenny Reason for Consultation:: asked to see at the request of Dr Kenny - History of Present Illness Chief Complaint: hemoptysis History of Present Illness: 57 year old man with pMH of asthma and htn, hep c- cirrhosis- didnot respond to harvoni? admitted for hemoptysis- he has a LLL infiltrate on CT scan he has a history of TB many years ago - approx 20 in 2006 he was hospitalized for a pleural effusion- had a chest tube and was treated for TB for 6 months now he states he has been HIV positive for many years he is followed at [facility] by Kath Devlin, reports he is undectatable and Tcells are good was on Atriple and switched to Odefsey a few months ago today he is constipated and nauseous and c/o diffuse abd pain he just had a BM and reports some improvement in his abdominal pain, +nausea no fevers he was treated here in 2014 for legionella pneumonia continues to have hemoptysis also noted to have elevated creatinine today no reports of decreased urine output - History Source History Provided By: Patient, Medical Record Limitations to Obtaining History: Poor Historian - Past Medical History Cardio/Vascular: Yes: HTN Pulmonary: Yes: Asthma Hepatobiliary: Yes: Cirrhosis, Hepatitis C (s/p harvoni-reports didnt work) Infectious Disease: Yes: Tuberculosis - Alcohol/Substance Use Hx Alcohol Use: No - Smoking History Smoking history: Never smoked Have you smoked in the past 12 months: No - Social History Usual Living Arrangement: With Spouse ADL: Independent Occupation: unemployed History of Recent Travel: No Home Medications - Allergies Allergies/Adverse Reactions: Allergies Allergy/AdvReac Type Severity Reaction Status Date / Time No Known Allergies Allergy Verified 12/16/17 11:59 - Home Medications Home Medications: Ambulatory Orders Verapamil HCl [Verapamil ER] 240 mg PO DAILY 08/02/15 Azithromycin [Zithromax -] 250 mg PO UTDICT #6 tab 03/10/16 Ledipasvir/Sofosbuvir [Harvoni 90-400 mg Tablet] 1 each PO DAILY 03/10/16 levoFLOXacin [Levaquin -] 500 mg PO DAILY #7 tablet 06/03/16 Emtricitab/Rilpiviri/Tenof Ala [Odefsey Tablet] 1 each PO DAILY 12/17/17 Family Disease History - Family Disease History Family Disease History: CA: Mother (bone), Other: Father (unknown medical problems) Review of Systems - Review of Systems Constitutional: reports: No Symptoms. denies: Fever Eyes: reports: No Symptoms HENT: reports: No Symptoms. denies: Difficult Swallowing Neck: reports: No Symptoms Respiratory: reports: Hemoptysis Gastrointestinal: reports: Abdominal Pain, Constipation, Nausea, Vomiting Genitourinary: reports: No Symptoms Physical Exam Vital Signs: Vital Signs Temperature 98.4 F 12/18/17 10:00 Pulse Rate 60 12/18/17 10:00 Respiratory Rate 20 12/18/17 10:00 Blood Pressure 116/59 12/18/17 10:00 O2 Sat by Pulse Oximetry (%) 96 12/18/17 09:00 Constitutional: Yes: Well Nourished, Mild Distress Eyes: Yes: Conjunctiva Clear, EOM Intact HENT: Yes: Atraumatic, Normocephalic. No: Thrush Neck: Yes: Supple, Trachea Midline Cardiovascular: Yes: Regular Rate and Rhythm Respiratory: Yes: Regular, CTA Bilaterally Gastrointestinal: Yes: Normal Bowel Sounds, Soft, Other (diffuse abdominal pain to palpation, no RUQ pain) ...Rectal Exam: Yes: Deferred Musculoskeletal: Yes: WNL Extremities: Yes: WNL Edema: No Psychiatric: Yes: Alert, Oriented Labs: CBC, BMP 12/18/17 08:30 12/18/17 08:30 Imaging - Results Chest X-ray: Report Reviewed Cat Scan: Report Reviewed, Image Reviewed Problem List - Problems (1) Hemoptysis Code(s): R04.2 - HEMOPTYSIS (2) Pneumonia Code(s): J18.9 - PNEUMONIA, UNSPECIFIED ORGANISM Qualifiers: Pneumonia type: due to unspecified organism Laterality: left Lung location: lower lobe of lung Qualified Code(s): J18.1 - Lobar pneumonia, unspecified organism (3) Abdominal pain Code(s): R10.9 - UNSPECIFIED ABDOMINAL PAIN (4) Hepatitis C Code(s): B19.20 - UNSPECIFIED VIRAL HEPATITIS C WITHOUT HEPATIC COMA (5) Cirrhosis Code(s): K74.60 - UNSPECIFIED CIRRHOSIS OF LIVER Assessment/Plan hemoptysis-elevated INR LLL infiltrate history of TB HIV-followed by Kath Devlin, patient gives permission to call his Doctor /Clinic in am for more information hep c -cirrhosis- ?failed Harvoni- chronic elevated bilirubin ?acute renal failure afb isolation stat repeat BMP diffuse abdominal pain d/w Hospitalist NPO surgery to see IVF continue zosyn- good abdominal and Lung coverage for now abdominal ultrasound sputum afb being collected
[2017-12-18 14:09] LABS: ANION GAP 12 (8-16); BLOOD UREA NITROGEN 38 mg/dL (7-18); CHLORIDE 107 mmol/L (98-107); CO2 20 mmol/L (21-32); GLUCOSE,RANDOM 157 mg/dL (74-106); POTASSIUM 4.2 mmol/L (3.5-5.1); SODIUM 139 mmol/L (136-145)
--- NOTE | 2017-12-18 14:25 | CONSULT ---
Consult Consult Specialty:: General Surgery Referred by:: Leroy Hicks NP Reason for Consultation:: gallstones, abd pain - History of Present Illness Chief Complaint: gen abd pain starting yesterday, n/v this am, no diarrhea History of Present Illness: 57yo HIV+, HepC+ M, former IV heroin user, with cirrhosis, h/o TB treated twice (last 2005), came to ER 2 days ago with hemoptysis. He is on isolation precautions for possible TB. Chest CT showed no cavitary lesions, but did show contracted gallbladder with gallstones, cirrhotic liver, multiple upper abdominal varices. At that time, he was not having abdominal pain. AXR today confirmed the presence of radiopaque gallstones. WBC has increased from 3.8 to 14. T bili is chronically elevated, reviewing chart. He had gallstones present on 2016 ultrasound without signs of cholecystitis, + advanced hepatocellular disease. INR is also elevated >2, and he is thrombocytopenic. Renal function dropped since yesterday with tripling of BUN/Cr overnight. He states he has been urinating today, and had a formed soft but dark BM (dark since he has been coughing up blood). Feels warm today. No LEVINE/dizziness, no CP, + dyspnea because of the abdominal pain, which is generalized and "all over." He denies having this pain before. States he had nausea and "a little bit" of brown emesis earlier today. Admits to still coughing up blood. Drank some water earlier this morning, but is NPO by orders. AFB smears on sputum are negative x 3 so far, but cx are pending. He has pulled out multiple IV's today per nursing, and is on his fourth site today. He appears to be in pain, and is limited in answering questions or making eye contact. Surgery is consulted because of abdominal pain and known gallstones. US is pending. On antibiotics per ID. - History Source History Provided By: Patient, Medical Record Limitations to Obtaining History: Poor Historian - Past Medical History Cardio/Vascular: Yes: HTN Pulmonary: Yes: Asthma, Other (h/o TB, hemoptysis) Hepatobiliary: Yes: Cirrhosis, Cholelithiasis, Hepatitis C (s/p harvoni-reports didnt work, course finished last year) Infectious Disease: Yes: HIV, Tuberculosis, Other (Hep C) Psych: Yes: Addictions (IV heroin use "many years ago") - Past Surgical History Past Surgical History: Yes: Hernia Repair (right inguinal 3 yrs ago) - Alcohol/Substance Use Hx Alcohol Use: No (quit "many years ago") History of Substance Use: reports: Heroin ("many years ago") - Smoking History Smoking history: Never smoked Have you smoked in the past 12 months: No - Social History Usual Living Arrangement: With Spouse ADL: Independent Occupation: unemployed History of Recent Travel: No Home Medications - Allergies Allergies/Adverse Reactions: Allergies Allergy/AdvReac Type Severity Reaction Status Date / Time No Known Allergies Allergy Verified 12/16/17 11:59 - Home Medications Home Medications: Ambulatory Orders Verapamil HCl [Verapamil ER] 240 mg PO DAILY 08/02/15 Azithromycin [Zithromax -] 250 mg PO UTDICT #6 tab 03/10/16 Ledipasvir/Sofosbuvir [Harvoni 90-400 mg Tablet] 1 each PO DAILY 03/10/16 levoFLOXacin [Levaquin -] 500 mg PO DAILY #7 tablet 06/03/16 Emtricitab/Rilpiviri/Tenof Ala [Odefsey Tablet] 1 each PO DAILY 12/17/17 Home Medications (free text): all but HIV meds are OLD PRESCRIPTIONS Family Disease History - Family Disease History Family Disease History: CA: Mother (bone), Other: Father (unknown medical problems) Review of Systems Unable to obtain ROS, reason: ltd;poorly responsive - Review of Systems Constitutional: denies: Chills, Fever (subjectively warm today only) Cardiovascular: denies: Chest Pain, Palpitations Respiratory: reports: Cough, Hemoptysis, SOB (with abdominal pain only) Gastrointestinal: reports: Abdominal Pain (with hpi), Nausea, Vomiting (once this am?). denies: Constipation, Diarrhea Genitourinary: denies: Burning, Dysuria, Hematuria Musculoskeletal: denies: Back Pain, Joint Pain Integumentary: denies: Change in Color, Rash Neurological: denies: Dizziness, Headache Physical Exam Vital Signs: Vital Signs Temperature 98.4 F 12/18/17 10:00 Pulse Rate 60 12/18/17 10:00 Respiratory Rate 20 12/18/17 10:00 Blood Pressure 116/59 12/18/17 10:00 O2 Sat by Pulse Oximetry (%) 96 12/18/17 09:00 Constitutional: Yes: Well Nourished, Calm, Mild Distress (secondary to pain) Eyes: Yes: Conjunctiva Clear, EOM Intact. No: Sclera Icterus HENT: Yes: Atraumatic, Normocephalic Neck: Yes: Supple, Trachea Midline Cardiovascular: Yes: Regular Rate and Rhythm. No: Murmur Respiratory: Yes: Regular, CTA Bilaterally. No: Wheezes Gastrointestinal: Yes: Soft, Abdomen, Obese, Hypoactive Bowel Sounds, Tenderness (bilat upper quadrants and epigastric, no R/G), Tenderness, Epigastrium. No: Tenderness, Rebound, Vomiting ...Rectal Exam: Yes: Deferred Renal/: No: CVA Tenderness - Left, CVA Tenderness - Right Musculoskeletal: No: Back Pain (no direct tenderness), Joint Swelling Extremities: No: Cool, Cyanosis Peripheral Pulses WNL: Yes Integumentary: Yes: Other (peripheral IV site out R arm with dried blood present ). No: Jaundice, Rash Neurological: Yes: Alert, Oriented Psychiatric: Yes: Alert, Oriented, Other (poorly responsive, only fair historian ) Labs: CBC, BMP 12/18/17 08:30 12/18/17 13:35 CMP Sodium 139 mmol/L (136-145) 12/18/17 13:35 Potassium 4.2 mmol/L (3.5-5.1) 12/18/17 13:35 Chloride 107 mmol/L (98-107) 12/18/17 13:35 Carbon Dioxide 20 mmol/L (21-32) L 12/18/17 13:35 Anion Gap 12 (8-16) 12/18/17 13:35 BUN 38 mg/dL (7-18) H D 12/18/17 13:35 Creatinine 3.0 mg/dL (0.7-1.3) H D 12/18/17 13:35 Creat Clearance w eGFR 28.14 (>60) 12/18/17 08:30 Random Glucose 157 mg/dL (74-106) H D 12/18/17 13:35 Calcium 9.0 mg/dL (8.5-10.1) 12/18/17 13:35 Total Bilirubin 2.4 mg/dL (0.2-1.0) H 12/18/17 08:30 AST 65 U/L (15-37) H 12/18/17 08:30 ALT 54 U/L (12-78) D 12/18/17 08:30 Alkaline Phosphatase 104 U/L (45-117) 12/18/17 08:30 Total Protein 7.7 g/dl (6.4-8.2) 12/18/17 08:30 Albumin 3.0 g/dl (3.4-5.0) L 12/18/17 08:30 Lipase 301 U/L (73-393) 12/18/17 08:30 BUN/Cr up from 08/07 bili stable over last few years INR, PTT INR 2.21 (0.82-1.09) H 12/17/17 05:05 increasing slightly last couple years Urine Test Results Urine Color Ltyellow 12/16/17 17:10 Urine Appearance Clear 12/16/17 17:10 Urine pH 8.0 (5.0-8.0) D 12/16/17 17:10 Ur Specific [place] 1.011 (1.001-1.035) 12/16/17 17:10 Urine Protein Negative (NEGATIVE) 12/16/17 17:10 Urine Glucose (UA) Negative (NEGATIVE) 12/16/17 17:10 Urine Ketones Negative (NEGATIVE) 12/16/17 17:10 Urine Blood Negative (NEGATIVE) 12/16/17 17:10 Urine Nitrite Negative (NEGATIVE) 12/16/17 17:10 Urine Bilirubin Negative (NEGATIVE) 12/16/17 17:10 Ur Leukocyte Esterase Negative (NEGATIVE) 12/16/17 17:10 Microbiology 12/17/17 00:00 Direct Acid Fast Bacilli Smear - Final Sputum - Expectorated 12/17/17 15:20 Direct Acid Fast Bacilli Smear - Final Sputum - Expectorated 12/16/17 17:10 Urine Culture - Preliminary Urine - Urine Clean Catch Group D Strep Or Entero Coccus 12/16/17 16:37 Blood Culture - Preliminary Blood - Peripheral Venous NO GROWTH OBTAINED AFTER 24 HOURS, INCUBATION TO CONTINUE FOR 4 DAYS. 12/16/17 16:37 Blood Culture - Preliminary Blood - Peripheral Venous NO GROWTH OBTAINED AFTER 24 HOURS, INCUBATION TO CONTINUE FOR 4 DAYS. 12/17/17 00:00 Direct Acid Fast Bacilli Smear - Final Sputum - Expectorated AFB smears neg, all cx pending U Cx with 20-30K organisms Imaging - Results X-ray: Report Reviewed, Image Reviewed Cat Scan: Report Reviewed, Image Reviewed Ultrasound: Pending Problem List - Problems (1) Calculus of gallbladder without cholecystitis without obstruction Assessment/Plan: Pt with known gallstones, gallbladder contracted on CT 2d ago on admission Having generalized abd pain, has been essentially NPO Doubt gallstones are source of pain Abdominal US pending to evaluate RUQ and kidneys High risk for any surgical intervention given comorbidities will follow up results of US, but no surgery currently indicated Thank you for the opportunity to participate in the care of this patient. Code(s): K80.20 - CALCULUS OF GALLBLADDER W/O CHOLECYSTITIS W/O OBSTRUCTION (2) Advanced cirrhosis of liver Code(s): K74.60 - UNSPECIFIED CIRRHOSIS OF LIVER (3) Portal hypertension Assessment/Plan: upper abdominal varices visible on CT of chest Code(s): K76.6 - PORTAL HYPERTENSION (4) Hepatitis C Assessment/Plan: per pt report, failed Harvoni treatment consider hepatitis C labs/titers, GI consult Code(s): B19.20 - UNSPECIFIED VIRAL HEPATITIS C WITHOUT HEPATIC COMA Qualifiers: Viral hepatitis chronicity: chronic Hepatic coma status: without hepatic coma Qualified Code(s): B18.2 - Chronic viral hepatitis C (5) Abdominal pain Code(s): R10.9 - UNSPECIFIED ABDOMINAL PAIN Qualifiers: Abdominal location: generalized Qualified Code(s): R10.84 - Generalized abdominal pain (6) Hemoptysis Assessment/Plan: airborne precautions ruling out TB Code(s): R04.2 - HEMOPTYSIS (7) H/O TB (tuberculosis) Code(s): Z86.11 - PERSONAL HISTORY OF TUBERCULOSIS (8) HIV (human immunodeficiency virus infection) Assessment/Plan: per ID note, pt follows at outpatient clinic with reportedly undetectable viral load Code(s): B20 - HUMAN IMMUNODEFICIENCY VIRUS [HIV] DISEASE
--- NOTE | 2017-12-18 15:51 | PN ---
Progress Note (short form) - Note Progress Note: Consult called for Dr. Lowe Discussed case over phone with Hsopitalist Kurt Patient with ? hep C cirrhosis Being evauated for hemoptysis Concerned because of worsening renal function Concerned if blood coming from Upper GI tract as opposed to hemoptysis Heomdynamically stable without melena Advised: Keeping patient NPO except meds Transferring to ICU for close monitoring Starting Octreotide infusion: 50mcg bolus followed by 50mcg/hr Dr. Lowe will evaluate tomorrow
--- NOTE | 2017-12-18 16:21 | CONSULT ---
Consult Consult Specialty:: Nephrology ( [facility] [place]) Reason for Consultation:: Acute kidney failure - History of Present Illness Chief Complaint: Thanks you for the consult referral. This is a 57 year old male with a significant PMH of bronchial asthma, HTN, cirrhosis, h/o heroine in the past, TB x2, once treated 20 years ago and again in 2005. In 2006 he also had pleural effusion s/p CT placement with purulant TB drainage, this happened while he was being treated for Hep C. This time he presented with hemoptysis over the past 3 days, dark blood then light then dark. He had increased sob and using his inhaler with little relief. - History Source History Provided By: Patient, Friend - Past Medical History Cardio/Vascular: Yes: HTN Pulmonary: Yes: Asthma, Other (h/o TB, hemoptysis) Hepatobiliary: Yes: Cirrhosis, Cholelithiasis, Hepatitis C (s/p harvoni-reports didnt work, course finished last year) Infectious Disease: Yes: HIV, Tuberculosis, Other (Hep C) Psych: Yes: Addictions (IV heroin use "many years ago") - Past Surgical History Past Surgical History: Yes: Hernia Repair (right inguinal 3 yrs ago) Additional Surgical History: pt states he has had surgery but does not say what - Alcohol/Substance Use Hx Alcohol Use: No (quit "many years ago") History of Substance Use: reports: Heroin ("many years ago") - Smoking History Smoking history: Never smoked Have you smoked in the past 12 months: No - Social History Usual Living Arrangement: With Spouse ADL: Independent Occupation: unemployed History of Recent Travel: No Home Medications - Allergies Allergies/Adverse Reactions: Allergies Allergy/AdvReac Type Severity Reaction Status Date / Time No Known Allergies Allergy Verified 12/16/17 11:59 - Home Medications Home Medications: Ambulatory Orders Verapamil HCl [Verapamil ER] 240 mg PO DAILY 08/02/15 Azithromycin [Zithromax -] 250 mg PO UTDICT #6 tab 03/10/16 Ledipasvir/Sofosbuvir [Harvoni 90-400 mg Tablet] 1 each PO DAILY 03/10/16 levoFLOXacin [Levaquin -] 500 mg PO DAILY #7 tablet 06/03/16 Emtricitab/Rilpiviri/Tenof Ala [Odefsey Tablet] 1 each PO DAILY 12/17/17 Family Disease History - Family Disease History Family Disease History: CA: Mother (bone), Other: Father (unknown medical problems) Review of Systems - Review of Systems Constitutional: reports: Weakness Cardiovascular: denies: Chest Pain, Palpitations, Shortness of Breath Respiratory: reports: Cough, Wheezing Gastrointestinal: reports: Abdominal Pain (diffuse), Bloating. denies: Diarrhea , Melena, Rectal Bleeding, Vomiting Genitourinary: denies: Burning, Dysuria, Urgency Musculoskeletal: denies: Back Pain Physical Exam Vital Signs: Vital Signs Temperature 98.4 F 12/18/17 10:00 Pulse Rate 60 12/18/17 10:00 Respiratory Rate 20 12/18/17 10:00 Blood Pressure 116/59 12/18/17 10:00 O2 Sat by Pulse Oximetry (%) 96 12/18/17 09:00 Constitutional: Yes: Moderate Distress (abd pain) HENT: Yes: Normocephalic Neck: Yes: Trachea Midline Cardiovascular: Yes: Regular Rate and Rhythm, S1, S2 Respiratory: Yes: CTA Bilaterally, Diminished Gastrointestinal: Yes: Normal Bowel Sounds, Soft, Distention Renal/: No: CVA Tenderness - Left, CVA Tenderness - Right, Hematuria, Incontinence Edema: No Neurological: Yes: Alert, Oriented Labs: CBC, BMP 12/18/17 08:30 12/18/17 13:35 Problem List - Problems (1) Acute kidney failure Code(s): N17.9 - ACUTE KIDNEY FAILURE, UNSPECIFIED (2) Abdominal pain Code(s): R10.9 - UNSPECIFIED ABDOMINAL PAIN Qualifiers: Abdominal location: generalized Qualified Code(s): R10.84 - Generalized abdominal pain (3) Advanced cirrhosis of liver Code(s): K74.60 - UNSPECIFIED CIRRHOSIS OF LIVER (4) Asthma Code(s): J45.909 - UNSPECIFIED ASTHMA, UNCOMPLICATED Qualifiers: Asthma severity: unspecified severity Asthma persistence: unspecified Asthma complication type: unspecified Qualified Code(s): J45.909 - Unspecified asthma, uncomplicated (5) Cirrhosis Code(s): K74.60 - UNSPECIFIED CIRRHOSIS OF LIVER (6) H/O TB (tuberculosis) Code(s): Z86.11 - PERSONAL HISTORY OF TUBERCULOSIS (7) HIV (human immunodeficiency virus infection) Code(s): B20 - HUMAN IMMUNODEFICIENCY VIRUS [HIV] DISEASE (8) Pneumonia Code(s): J18.9 - PNEUMONIA, UNSPECIFIED ORGANISM (9) Hepatitis B Code(s): B19.10 - UNSPECIFIED VIRAL HEPATITIS B WITHOUT HEPATIC COMA (10) Hepatitis C Code(s): B19.20 - UNSPECIFIED VIRAL HEPATITIS C WITHOUT HEPATIC COMA Qualifiers: Viral hepatitis chronicity: chronic Hepatic coma status: without hepatic coma Qualified Code(s): B18.2 - Chronic viral hepatitis C Assessment/Plan This 57 year old male with a significant PMH of Br. Asthma, HTN, Cirrhosis, h/ o heroine abuse, TB x2, once treated 20 years ago and again in 2006. In 2006 he also had pleural effusion s/p CT placement with purulant TB drainage , he reports this happened while he was being treated for Hep C. Does he have Hep B? Reviewed current medications. The patient's current complaints are mostly abd. pain. Diffuse, with abd. distension. No specific tenderness. Acute Kidney Injury...the etiology of the same remains obscure. Can not r/o hemodynamic related XUAN, though no over hemodynamic instability is identified. in this setting one need to r/o diagnostic possibilities like Rhabdomyolysis, Obstructive uropathy, Retroperitoneal hematoma or retroperitoneal factors causing XUAN, Toxic Nephropathy. Though less of a possibility, Aortic dissection also need to be entertained in the list to rule out. Concur with the work up in progress. Additional w/u as ordered. IV fluids as ordered. Will f/u with you. Thank you. Bhavna Adamson MD
[2017-12-18] MEDS ORDERED: SODIUM CHLORIDE 1,000 ML IV SCH (16:45)
[2017-12-19] MEDS: methylPREDNISolone NA SUCC 40 MG/1 ML VIAL IVPUSH SCH ×4 (02:00→21:38)
[2017-12-19] MEDS: PIPERACILLIN/TAZOB 3.375 GM 3.375 GM in DEXTROSE 5%-WATER - 50 ML IVPB SCH ×2 (02:00→09:17)
[2017-12-19 07:14] LABS: HEMATOCRIT 40.6 % (35.4-49); HEMOGLOBIN 13.3 GM/dL (11.7-16.9); INR 1.94 (0.82-1.09); MCH 35.8 pg (25.7-33.7); MCHC 32.9 g/dl (32.0-35.9); MEAN CELL VOLUME 108.8 fl (80-96); PLATELET COUNT 84 K/MM3 (134-434); PROTHROMBIN TIME (PATIENT) 21.9 SEC (9.98-11.88); RBC 3.73 M/mm3 (4.00-5.60); RDW 15.6 % (11.9-15.9); WHITE BLOOD COUNT 13.9 K/mm3 (4.0-10.0)
[2017-12-19 07:28] LABS: ALBUMIN 3.1 g/dl (3.4-5.0); ANION GAP 14 (8-16); BLOOD UREA NITROGEN 50 mg/dL (7-18); CALCIUM 7.9 mg/dL (8.5-10.1); CHLORIDE 106 mmol/L (98-107); CO2 17 mmol/L (21-32); GLUCOSE,RANDOM 125 mg/dL (74-106); MAGNESIUM 2.5 mg/dL (1.8-2.4); POTASSIUM 4.8 mmol/L (3.5-5.1); SODIUM 137 mmol/L (136-145)
[2017-12-19 07:40] LABS: ALK PHOS 75 U/L (45-117); BILIRUBIN,TOTAL 3.1 mg/dL (0.2-1.0); CREATININE 4.6 mg/dL (0.7-1.3); PHOSPHOROUS 7.8 mg/dL (2.5-4.9); SGOT/AST 60 U/L (15-37); SGPT/ALT 58 U/L (12-78); TOT PROT 7.7 g/dl (6.4-8.2); URIC ACID 7.4 mg/dL (2.6-7.2)
[2017-12-19] MEDS ORDERED: PT OWN MED DRAWER 7, Y5N ONE ×2 (08:53→17:37)
--- NOTE | 2017-12-19 08:53 | PN ---
Progress Note (short form) - Note Progress Note: complains of diffuse abdominal pain minimal cough one episode of mild hemoptysis this am no vomiting today Vital Signs Period Temp Pulse Resp BP Sys/Martinez Pulse Ox Last 24 Hr 97.5 F-98.4 F 54-70 20-20 106-133/59-65 92-96 cor-rrr lungs clear abd soft,no distention +midepigastric tenderness to palpation ext no edema CBC, BMP 12/19/17 06:40 12/19/17 06:40 Laboratory Tests 12/19/17 06:40 Lipase 576 H Microbiology 12/16/17 16:37 Blood - Peripheral Venous Blood Culture - Preliminary NO GROWTH OBTAINED AFTER 48 HOURS, INCUBATION TO CONTINUE FOR 3 DAYS. 12/16/17 16:37 Blood - Peripheral Venous Blood Culture - Preliminary NO GROWTH OBTAINED AFTER 48 HOURS, INCUBATION TO CONTINUE FOR 3 DAYS. 12/17/17 00:00 Sputum - Expectorated Direct Acid Fast Bacilli Smear - Final 12/17/17 15:20 Sputum - Expectorated Direct Acid Fast Bacilli Smear - Final 12/16/17 17:10 Urine - Urine Clean Catch Urine Culture - Preliminary Group D Strep Or Entero Coccus 12/17/17 00:00 Sputum - Expectorated Direct Acid Fast Bacilli Smear - Final 12/16/17 17:10 Urine For Antigen Detection Legionella Antigen - Final 12/16/17 17:10 Urine For Antigen Detection Streptococcus pneumoniae Antigen (M - Final a/p hemoptysis r/o tb-r/u sputum afb LLL infiltrate HIV- HOLD MEDS-will call clinic-left message, awaiting call back [facility]- ?etiology abdominal pain- gallstones, elevated lipase- ?pancreatitis continue zosyn-adjust for XUAN repeat UA continue IVF ?further abdominal imaging -will d/w GI renal/GI f/u history of HEP C cirrhosis d/w hospitalist spoke with clinic in [place]- cd4 count 394 in October viral load undectable last measurable viral load was 50 in 2010 currently on odefsey- history of +PPD- they have no history of TB hep c with cirrhosis no ascites- failed Problem List - Problems (1) Hemoptysis Code(s): R04.2 - HEMOPTYSIS (2) Pneumonia Code(s): J18.9 - PNEUMONIA, UNSPECIFIED ORGANISM Qualifiers: Pneumonia type: due to unspecified organism Laterality: left Lung location: lower lobe of lung Qualified Code(s): J18.1 - Lobar pneumonia, unspecified organism (3) Abdominal pain Code(s): R10.9 - UNSPECIFIED ABDOMINAL PAIN Qualifiers: Abdominal location: generalized Qualified Code(s): R10.84 - Generalized abdominal pain (4) Hepatitis C Code(s): B19.20 - UNSPECIFIED VIRAL HEPATITIS C WITHOUT HEPATIC COMA Qualifiers: Viral hepatitis chronicity: chronic Hepatic coma status: without hepatic coma Qualified Code(s): B18.2 - Chronic viral hepatitis C (5) Cirrhosis Code(s): K74.60 - UNSPECIFIED CIRRHOSIS OF LIVER
[2017-12-19] MEDS: VERAPAMIL HCL 240 MG E.R. TABLET (FP) PO SCH (09:17)
--- NOTE | 2017-12-19 09:47 | CON.GI ---
Consult Consult Specialty:: GI Reason for Consultation:: ? hematemesis ?hemoptusis. Liver cirrhosis - History of Present Illness History of Present Illness: Chart reviewed. Events noted. 57 year old male with a significant PMH of asthma, HTN, cirrhosis, used to do heroine, TB x2, once treated 20 years ago and again in 2005. In 2006 he also had pleural effusion s/p Chest tube placement with for TB drainage, he reports this happened while he was being treated for Hep C. Did not respond to Harvoni ( ?). Today he presents with hemoptysis over the past 3 days, dark blood then light then dark. At the time of this encounter, c/o generalize abdominal pain and thirst. Demands water. No hematemesis, melena, hematochezia, dysphagia, odynophagia, gerd-like symptoms in the past or while admitted. Hgb appears to be stable and at normal level. CT chest indicative of portal hypertension and liver cirrhosis , multiple gallstones, no cavitary lesions. Ascites was not reported on CT, or US abdomen. In isolation while r/o TB. Unclear if had EGD to asses for esophagogastric vrices. - History Source History Provided By: Patient, Medical Record - Past Medical History Cardio/Vascular: Yes: HTN Pulmonary: Yes: Asthma, Other (h/o TB, hemoptysis) Hepatobiliary: Yes: Cirrhosis, Cholelithiasis, Hepatitis C (s/p harvoni-reports didnt work, course finished last year) Infectious Disease: Yes: HIV, Tuberculosis, Other (Hep C) Psych: Yes: Addictions (IV heroin use "many years ago") - Past Surgical History Past Surgical History: Yes: Hernia Repair (right inguinal 3 yrs ago) Additional Surgical History: pt states he has had surgery but does not say what - Alcohol/Substance Use Hx Alcohol Use: No (quit "many years ago") History of Substance Use: reports: Heroin ("many years ago") - Smoking History Smoking history: Never smoked Have you smoked in the past 12 months: No - Social History Usual Living Arrangement: With Spouse ADL: Independent Occupation: unemployed History of Recent Travel: No Home Medications - Allergies Allergies/Adverse Reactions: Allergies Allergy/AdvReac Type Severity Reaction Status Date / Time No Known Allergies Allergy Verified 12/16/17 11:59 - Home Medications Home Medications: Ambulatory Orders Verapamil HCl [Verapamil ER] 240 mg PO DAILY 08/02/15 Azithromycin [Zithromax -] 250 mg PO UTDICT #6 tab 03/10/16 Ledipasvir/Sofosbuvir [Harvoni 90-400 mg Tablet] 1 each PO DAILY 03/10/16 levoFLOXacin [Levaquin -] 500 mg PO DAILY #7 tablet 06/03/16 Emtricitab/Rilpiviri/Tenof Ala [Odefsey Tablet] 1 each PO DAILY 12/17/17 Family Disease History - Family Disease History Family Disease History: CA: Mother (bone), Other: Father (unknown medical problems) Review of Systems Findings/Remarks: as per HPI. H&P Physical Exam-GI Vital Signs: Vital Signs Temperature 98.2 F 12/19/17 05:57 Pulse Rate 70 12/19/17 05:57 Respiratory Rate 20 12/19/17 08:35 Blood Pressure 133/65 12/19/17 05:57 O2 Sat by Pulse Oximetry (%) 96 12/19/17 08:35 Constitutional: Yes: Well Nourished, Anxious, Mild Distress Eyes: Yes: Conjunctiva Clear HENT: Yes: Atraumatic Neck: Yes: Supple Cardiovascular: Yes: Regular Rate and Rhythm Respiratory: Yes: Regular Gastrointestinal Inspection: No: Ascites, Distention ...Palpate: Yes: Tenderness. No: Firm/Rigid, Guarding, Tenderness, Epigastium, Tenderness, Rebound Neurological: Yes: Alert, Oriented. No: Asterixis, Tremors Labs: CBC, BMP 12/19/17 06:40 12/19/17 06:40 INR, PTT INR 1.94 (0.82-1.09) H 12/19/17 06:40 Abnormal Lab Results 12/18/17 12/19/17 12/19/17 13:35 06:00 06:40 WBC 13.9 H RBC 3.73 L MCV 108.8 H MCH 35.8 H Plt Count 84 L PT with INR INR Carbon Dioxide 20 L BUN 38 H D Creatinine 3.0 H D Random Glucose 157 H D Lactic Acid Uric Acid Calcium Phosphorus Magnesium Total Bilirubin AST Ammonia CK-MB (CK-2) Albumin Total Amylase Lipase U Random Total Protein 82 H 12/19/17 12/19/17 12/19/17 06:40 06:40 06:40 WBC RBC MCV MCH Plt Count PT with INR 21.90 H INR 1.94 H Carbon Dioxide 17 L BUN 50 H D Creatinine 4.6 H D Random Glucose 125 H D Lactic Acid Uric Acid 7.4 H Calcium 7.9 L Phosphorus 7.8 H D Magnesium 2.5 H Total Bilirubin 3.1 H D AST 60 H Ammonia 47.32 H CK-MB (CK-2) Albumin 3.1 L Total Amylase Lipase U Random Total Protein 12/19/17 12/19/17 06:40 06:40 WBC RBC MCV MCH Plt Count PT with INR INR Carbon Dioxide BUN Creatinine Random Glucose Lactic Acid 5.9 H* Uric Acid Calcium Phosphorus Magnesium Total Bilirubin AST Ammonia CK-MB (CK-2) 3.957 H Albumin Total Amylase 188 H D Lipase 576 H U Random Total Protein Problem List - Problems (1) Abdominal pain Code(s): R10.9 - UNSPECIFIED ABDOMINAL PAIN Qualifiers: Abdominal location: generalized Qualified Code(s): R10.84 - Generalized abdominal pain (2) Acute kidney failure Code(s): N17.9 - ACUTE KIDNEY FAILURE, UNSPECIFIED (3) Advanced cirrhosis of liver Code(s): K74.60 - UNSPECIFIED CIRRHOSIS OF LIVER (4) Calculus of gallbladder without cholecystitis without obstruction Code(s): K80.20 - CALCULUS OF GALLBLADDER W/O CHOLECYSTITIS W/O OBSTRUCTION (5) Coagulopathy Code(s): D68.9 - COAGULATION DEFECT, UNSPECIFIED (6) Hemoptysis Code(s): R04.2 - HEMOPTYSIS (7) Pneumonia Code(s): J18.9 - PNEUMONIA, UNSPECIFIED ORGANISM Qualifiers: Pneumonia type: due to unspecified organism Laterality: left Lung location: lower lobe of lung Qualified Code(s): J18.1 - Lobar pneumonia, unspecified organism (8) Portal hypertension Code(s): K76.6 - PORTAL HYPERTENSION (9) Hepatitis B Code(s): B19.10 - UNSPECIFIED VIRAL HEPATITIS B WITHOUT HEPATIC COMA (10) Hepatitis C Code(s): B19.20 - UNSPECIFIED VIRAL HEPATITIS C WITHOUT HEPATIC COMA Qualifiers: Viral hepatitis chronicity: chronic Hepatic coma status: without hepatic coma Qualified Code(s): B18.2 - Chronic viral hepatitis C Assessment/Plan A 57 yom with advanced liver cirrhosis with portal hypertension, coagulopathy, gallstone disease w/o choledocolithiasis, but with generalized abdominal pain and mild pancreatitis who presents with the new onset hemoptysis, renal insufficiency and aforementioned abdominal pain. No signs of recent, or ongoing GI bleeding at this time. No signs encephalopathy or SBP. HRS may be present and could be contributing to the abnormal renal function. Gentle hydration to see if renal function improves. Trend BUN, Cr, electrolytes. Renal on the case ? pain source ? pancreatitis, GS, metabolic. Hold all nonessential and HIV medications, trend CBC, liver enzymes, bilirubin, ALP and lipase daily. Sx follow up re GS. Follow sputum for TB results EGD (after FFP) to asses esophageal varices when acute issues have resolved and TB ruled out. Will follow
--- NOTE | 2017-12-19 11:17 | PN ---
Progress Note, Physician History of Present Illness: PULMONARY DROWSY,LESS HEMOPTYSIS, LESS ADB DISCOMFORT - Current Medication List Current Medications: Active Medications Albuterol Sulfate (Ventolin 0.083% Nebulizer Soln -) 1 amp NEB Q4H PRN PRN Reason: SHORT OF BREATH/WHEEZING Sodium Chloride (Normal Saline -) 1,000 mls @ 100 mls/hr IV ASDIR KAREN Last Admin: 12/18/17 17:18 Dose: 100 mls/hr Methylprednisolone Sodium Succinate (Solu-Medrol -) 40 mg IVPUSH Q8H-IV KAREN Last Admin: 12/19/17 09:17 Dose: 40 mg Piperacillin/Tazobactam/Dextrose (Zosyn 2.25gm Ivpb (Premix)) 2.25 gm IVPB Q8H- IV KAREN Verapamil HCl (Calan Sr -) 240 mg PO DAILY KAREN Last Admin: 12/19/17 09:17 Dose: 240 mg - Objective Vital Signs: Vital Signs Temperature 98.0 F 12/19/17 10:00 Pulse Rate 81 12/19/17 10:00 Respiratory Rate 20 12/19/17 10:00 Blood Pressure 129/66 12/19/17 10:00 O2 Sat by Pulse Oximetry (%) 96 12/19/17 10:00 Constitutional: Yes: Well Nourished, Calm Eyes: Yes: WNL HENT: Yes: WNL Neck: Yes: WNL Cardiovascular: Yes: Regular Rate and Rhythm, S1, S2 Respiratory: Yes: Rales (FEW CRACKLES BILATERALLY) Gastrointestinal: Yes: Normal Bowel Sounds, Soft Extremities: Yes: WNL Edema: No Labs: CBC, BMP 12/19/17 06:40 12/19/17 06:40 INR, PTT INR 1.94 (0.82-1.09) H 12/19/17 06:40 Laboratory Tests 12/19/17 06:40 Lactic Acid 5.9 H* Problem List - Problems (1) Hemoptysis Code(s): R04.2 - HEMOPTYSIS (2) Hepatitis C Code(s): B19.20 - UNSPECIFIED VIRAL HEPATITIS C WITHOUT HEPATIC COMA Qualifiers: Qualified Code(s): B18.2 - Chronic viral hepatitis C (3) Pneumonia Code(s): J18.9 - PNEUMONIA, UNSPECIFIED ORGANISM (4) Cirrhosis Code(s): K74.60 - UNSPECIFIED CIRRHOSIS OF LIVER (5) H/O TB (tuberculosis) Code(s): Z86.11 - PERSONAL HISTORY OF TUBERCULOSIS (6) Coagulopathy Code(s): D68.9 - COAGULATION DEFECT, UNSPECIFIED Assessment/Plan IMP HEMOPTYSIS IMPROVING ? PNEUMONIA HEP C CIRRHOSIS ASTHMA H/O TB ? H/O HIV COAGULOPATHY XUAN WORSENING HEPATO -RENAL SYNDROME ELEVATED LACTATE LEVEL PLAN IV ANTIBIOTICS PER ID INHALED BRONCHODILATORS O2 PRN STEROID TAPER IVF QUANTIFY HEMOPTYSIS SPUTUM AF[employer] MONITOR INR,PLT CT MONITOR LYTES,RENAL FUNCTION F/U CHEST X-RAYS TREND LACTATE AMMONIA LEVEL LACTULOSE DR MENA
[2017-12-19] MEDS ORDERED: LACTULOSE 20 GM/30 ML UDC (FOR ORAL USE ONLY) PO PRN (11:22)
[2017-12-19] MEDS ORDERED: SODIUM CHLORIDE 1,000 ML IV STA (11:38)
[2017-12-19 11:40] LABS: MACROCYTOSIS 1+; OVALOCYTE 1+; TEAR DROP CELLS 1+
[2017-12-19] MEDS ORDERED: SODIUM CHLORIDE 1,000 ML IV SCH ×2 (11:45→14:00)
--- NOTE | 2017-12-19 11:47 | PN ---
Physical Exam: SUBJECTIVE: Patient seen and examined. Complaining of abdominal pain and SOB. OBJECTIVE: Vital Signs Period Temp Pulse Resp BP Sys/Martinez Pulse Ox Last 24 Hr 97.5 F-98.2 F 54-81 20-20 106-133/59-66 92-96 GENERAL: The patient is awake, alert, and fully oriented, in moderate distress secondary to SOB and abdominal pain ENT: Dry mucous membranes. LUNGS: Diffuse crackles, + accessory muscle use. HEART: Irregular, S1, S2, +JVD ABDOMEN: +epigastric tenderness, palpable liver edge 3 fingerwidths EXTREMITIES: 2+ pulses, warm, well-perfused, no edema. NEUROLOGICAL: Cranial nerves II through XII grossly intact. Normal speech, moving all extremities freely Laboratory Results - last 24 hr 12/18/17 12/19/17 12/19/17 13:35 06:00 06:00 WBC RBC Hgb Hct MCV MCH MCHC RDW Plt Count MPV Total Counted Neutrophils % Neutrophils % (Manual) Band Neutrophils % Lymphocytes % Lymphocytes % (Manual) Monocytes % (Manual) Polychromasia Macrocytosis Tear Drop Cells Ovalocytes ESR PT with INR INR Sodium 139 Potassium 4.2 Chloride 107 Carbon Dioxide 20 L Anion Gap 12 BUN 38 H D Creatinine 3.0 H D Creat Clearance w eGFR Random Glucose 157 H D Lactic Acid Uric Acid Calcium 9.0 Phosphorus Magnesium Total Bilirubin AST ALT Alkaline Phosphatase Ammonia Creatine Kinase Creatine Kinase Index CK-MB (CK-2) Total Protein Albumin Total Amylase Lipase TSH Free T4 Urine Protein U Random Total Protein Ur Random Sodium Cancelled Ur Random Potassium Ur Random Chloride Urine Creatinine Cancelled 12/19/17 12/19/17 12/19/17 06:00 06:00 06:40 WBC 13.9 H RBC 3.73 L Hgb 13.3 Hct 40.6 MCV 108.8 H MCH 35.8 H MCHC 32.9 RDW 15.6 Plt Count 84 L MPV 10.0 Total Counted 100 Neutrophils % No Result Required. Neutrophils % (Manual) 87.0 H Band Neutrophils % 2.0 Lymphocytes % No Result Required. Lymphocytes % (Manual) 4.0 L D Monocytes % (Manual) 5 Polychromasia 1+ Macrocytosis 1+ Tear Drop Cells 1+ Ovalocytes 1+ ESR PT with INR INR Sodium Potassium Chloride Carbon Dioxide Anion Gap BUN Creatinine Creat Clearance w eGFR Random Glucose Lactic Acid Uric Acid Calcium Phosphorus Magnesium Total Bilirubin AST ALT Alkaline Phosphatase Ammonia Creatine Kinase Creatine Kinase Index CK-MB (CK-2) Total Protein Albumin Total Amylase Lipase TSH Free T4 Urine Protein Cancelled U Random Total Protein 82 H Ur Random Sodium 27 Ur Random Potassium 52.0 Ur Random Chloride < 10 Urine Creatinine 336.0 12/19/17 12/19/17 12/19/17 06:40 06:40 06:40 WBC RBC Hgb Hct MCV MCH MCHC RDW Plt Count MPV Total Counted Neutrophils % Neutrophils % (Manual) Band Neutrophils % Lymphocytes % Lymphocytes % (Manual) Monocytes % (Manual) Polychromasia Macrocytosis Tear Drop Cells Ovalocytes ESR PT with INR 21.90 H INR 1.94 H Sodium 137 Potassium 4.8 Chloride 106 Carbon Dioxide 17 L Anion Gap 14 BUN 50 H D Creatinine 4.6 H D Creat Clearance w eGFR 13.28 Random Glucose 125 H D Lactic Acid Uric Acid 7.4 H Calcium 7.9 L Phosphorus 7.8 H D Magnesium 2.5 H Total Bilirubin 3.1 H D AST 60 H ALT 58 Alkaline Phosphatase 75 D Ammonia 47.32 H Creatine Kinase Creatine Kinase Index CK-MB (CK-2) Total Protein 7.7 Albumin 3.1 L Total Amylase Lipase TSH 1.30 Free T4 Urine Protein U Random Total Protein Ur Random Sodium Ur Random Potassium Ur Random Chloride Urine Creatinine 12/19/17 12/19/17 12/19/17 06:40 06:40 06:40 WBC RBC Hgb Hct MCV MCH MCHC RDW Plt Count MPV Total Counted Neutrophils % Neutrophils % (Manual) Band Neutrophils % Lymphocytes % Lymphocytes % (Manual) Monocytes % (Manual) Polychromasia Macrocytosis Tear Drop Cells Ovalocytes ESR 6 PT with INR INR Sodium Potassium Chloride Carbon Dioxide Anion Gap BUN Creatinine Creat Clearance w eGFR Random Glucose Lactic Acid 5.9 H* Uric Acid Calcium Phosphorus Magnesium Total Bilirubin AST ALT Alkaline Phosphatase Ammonia Creatine Kinase 174 Creatine Kinase Index 2.2 CK-MB (CK-2) 3.957 H Total Protein Albumin Total Amylase 188 H D Lipase 576 H TSH Free T4 1.10 Urine Protein U Random Total Protein Ur Random Sodium Ur Random Potassium Ur Random Chloride Urine Creatinine Active Medications Generic Name Dose Route Start Last Admin Trade Name Freq PRN Reason Stop Dose Admin Albuterol Sulfate 1 amp 12/16/17 17:44 Ventolin 0.083% Nebulizer Soln - NEB Q4H PRN SHORT OF BREATH/WHEEZING Sodium Chloride 1,000 mls @ 100 mls/hr 12/18/17 16:45 12/18/17 17:18 Normal Saline - IV 100 mls/hr ASDIR KAREN Administration Sodium Chloride 1,000 mls @ 1,000 mls/hr 12/19/17 11:38 Normal Saline - IV 12/19/17 12:37 ASDIR STA Sodium Chloride 1,000 mls @ 1,000 mls/hr 12/19/17 11:45 Normal Saline - IV ASDIR KAREN Lactulose 20 gm 12/19/17 11:22 Cephulac (Oral Use) PO TID PRN CONSTIPATION Methylprednisolone Sodium Succinate 40 mg 12/16/17 18:00 12/19/17 09:17 Solu-Medrol - IVPUSH 40 mg Q8H-IV KAREN Administration Piperacillin/Tazobactam/Dextrose 2.25 gm 12/19/17 18:00 Zosyn 2.25gm Ivpb (Premix) IVPB Q8H-IV KAREN Verapamil HCl 240 mg 12/17/17 10:00 12/19/17 09:17 Calan Sr - PO 240 mg DAILY KAREN Administration ASSESSMENT/PLAN: 57 year-old male with a PMH significant for HTN, asthma, +PPD, cirrhosis, Hep C s/p failed Harvoni treatment, HIV+, former IVDU. Acute renal failure --Cr 0.9 on admission; now 5.4 --FeNa 0.3% suggesting prerenal --consider hepatorenal syndrome type I in this cirrhotic patient with severe heart failure --may need HD Pulmonary edema Hypoxic respiratory failure --gave fluids for FeNa 0.3%; after ~1.5L became acutely SOB; diffuse crackles ; +JVD; CXR worsening congestion --Lasix IV 80mg given with no UOP; will give another 160mg Lasix this evening per renal --on venti mask Metabolic acidosis Lactic acidosis --worsening lactic acidosis, 5.3-->6.7 --bicarb dropping 27-->15 Acute severe systolic heart failure --12/19 Echo: LV severely reduced, severe global hypokinesis, moderate cLVH; RV "appears diminished"; LA severely dilated, RA moderately dilated; mild MR; mild PI; moderate aortic root dilatation, mildly dilated ascending aorta (4.1cm) --discussed with scientific photographer SAMREEN Rodriguez; will likely put in trialysis cath and start levo (a preferred pressor for HRS I) --trend troponins --cardiology consult Atrial fibrillation --no documented history of afib and patient denies previous history --rate is controlled --no a/c due to hemoptysis Cirrhosis Hepatitis C Portal hypertension Abdominal varices --no indication of ascites on US, CTAP pending --octreotide drip Metabolic encephalopathy Hyperammonemia --yesterday very agitated, pulled out four peripheral IVs; periods of confusion today --lactulose TID Elevated lipase Elevated amylase --hold IV fluids for now Hemoptysis of uncertain etiology --improving; h/h stable --EGD when more stable Community acquired pneumonia +PPD --LLL infiltrate --continue Zosyn Abdominal pain Cholilithiasis --CTAP pending --HIDA scan when more stable HIV --10/2017 T cell count 394, viral load undetectable Hyperphosphatemia Hypermagnesemia FEN Fluids: hold IV fluids Electrolytes: replete as indicated Nutrition: NPO DVT prophylaxis: hold chemical prophylaxis due to hemoptysis; SCDs Visit type - Emergency Visit Emergency Visit: Yes ED Registration Date: 12/16/17 Care time: The patient presented to the Emergency Department on the above date and was hospitalized for further evaluation of their emergent condition. - New Patient This patient is new to me today: Yes Date on this admission: 12/19/17 - Critical Care Critical Care patient: Yes Total Critical Care Time (in minutes): 180 Critical Care Statement: The care of this patient involved high complexity decision making to prevent further life threatening deterioration of the patient 's condition and/or to evaluate & treat vital organ system(s) failure or risk of failure.
[2017-12-19] MEDS ORDERED: OCTREOTIDE ACETATE 50 MCG/1 ML - 1 ML VIAL IVPUSH ONE (12:09)
[2017-12-19] MEDS: OCTREOTIDE ACETATE 1,200 MCG in DEXTROSE 5%-WATER - 488 ML IVPB SCH (13:31)
[2017-12-19] MEDS: LACTULOSE 20 GM/30 ML UDC (FOR ORAL USE ONLY) PO SCH ×4 (13:33→21:38)
[2017-12-19 14:23] LABS: ARTERIAL BLOOD GAS BASE EXCESS -10.6 meq/l (-2-2); ARTERIAL BLOOD GAS PCO2 27.5 mmHg (35-45); ARTERIAL BLOOD GAS PO2 74.6 mmHg (80-100); ARTERIAL BLOOD GAS pH 7.32 (7.35-7.45)
[2017-12-19 14:25] LABS: ALLENS TEST POSITIVE
--- NOTE | 2017-12-19 15:18 | RAPID ---
Physical Examination Vital Signs: Vital Signs Temperature 98.0 F 12/19/17 10:00 Pulse Rate 72 12/19/17 15:16 Respiratory Rate 21 12/19/17 15:16 Blood Pressure 124/70 12/19/17 15:16 O2 Sat by Pulse Oximetry (%) 96 12/19/17 10:00 BLOOD PRESSURE 145/60, PULSE 98 RR 28, SPO2 ON 2L OXYGEN NC 95%. 100% NRB ADMINISTERED WITH 100% ON PULSE OX Findings/Remarks: Patient lying in bed in moderate respiratory distress, good color but using accessory muscles of respiration, talking without pauses. Constitutional: Yes: Moderate Distress Eyes: Yes: Conjunctiva Clear, EOM Intact HENT: Yes: Atraumatic, Normocephalic Neck: Yes: Supple Cardiovascular: Yes: Regular Rate and Rhythm, JVD (JVD up to mandible while sitting up 45 degrees) Respiratory: Yes: Rhonchi (diffuse b/l) Gastrointestinal: Yes: Abdomen, Obese, Hypoactive Bowel Sounds. 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 was admitted to r/o TB, recently developed hepatorenal syndrome with rapidly climbing creat, was given 4 L IVF iver the past day, now presenting in acute respiratory distress A: pulmonary edema due to volume overload in setting of cirrhosis -stat ekg, abg, cxr -lasix 80 -nair -continue octreotide, start midodrine -strict i and O -ICU monitoring -tte Critical Care Total Critical Care Time (in minutes): 45 Critical Care Statement: The care of this patient involved high complexity decision making to prevent further life threatening deterioration of the patient 's condition and/or to evaluate & treat vital organ system(s) failure or risk of failure.
[2017-12-19 15:31] LABS: URINE APPEARANCE CLOUDY; URINE BILIRUBIN NEGATIVE (NEGATIVE); URINE BLOOD NEGATIVE (NEGATIVE); URINE COLOR AMBER; URINE GLUCOSE (UA) NEGATIVE (NEGATIVE); URINE KETONE NEGATIVE (NEGATIVE); URINE LEUK ESTERASE NEGATIVE (NEGATIVE); URINE NITRITE NEGATIVE (NEGATIVE); URINE UROBILINOGEN NEGATIVE mg/dL (0.2-1.0)
[2017-12-19 15:49] LABS: URINE PROTEIN 1+ (NEGATIVE)
[2017-12-19 16:00] LABS: CALCIUM OXALATE CRYSTALS RARE /hpf (NONE SEEN); EPI CELLS RARE /HPF (FEW); URINE BACTERIA RARE /hpf (NONE SEEN); URINE MUCUS RARE
--- NOTE | 2017-12-19 16:16 | PN ---
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 for respiratory distress and taken to ICU he continues to have hemopytsis has mild abd pain not making much urine no fever, chills Vital Signs Temperature 98.0 F 12/19/17 10:00 Pulse Rate 72 12/19/17 15:16 Respiratory Rate 21 12/19/17 15:16 Blood Pressure 124/70 12/19/17 15:16 O2 Sat by Pulse Oximetry (%) 96 12/19/17 10:00 Intake & Output 12/16/17 12/17/17 12/18/17 12/19/17 23:59 23:59 23:59 23:59 Intake Total 20 1300 1350 Balance 20 1300 1350 Weight 111.13 kg NAD RRR Course BS soft, obese Abd Trace to 1+ edema in LE CBC, BMP 12/19/17 06:40 12/19/17 06:40 Current Medications Albuterol Sulfate (Ventolin 0.083% Nebulizer Soln -) 1 amp NEB Q4H PRN PRN Reason: SHORT OF BREATH/WHEEZING Octreotide Acetate 1,200 mcg/ (Dextrose) 500 mls @ 20.83 mls/hr IVPB TITR KAREN; 50 MCG/HR PRN Reason: Protocol Last Admin: 12/19/17 13:31 Dose: 20.83 mls/hr Piperacillin Sod/Tazobactam (Sod 2.25 gm/ Dextrose) 50 mls @ 100 mls/hr IVPB Q8H-IV KAREN Lactulose (Cephulac (Oral Use)) 20 gm PO TID KAREN Last Admin: 12/19/17 15:55 Dose: 20 gm Methylprednisolone Sodium Succinate (Solu-Medrol -) 40 mg IVPUSH Q8H-IV KAREN Last Admin: 12/19/17 09:17 Dose: 40 mg Verapamil HCl (Calan Sr -) 240 mg PO DAILY KAREN Last Admin: 12/19/17 09:17 Dose: 240 mg 57 year old gentleman with PMhx of [place], Pulmonary Tb s/p tx who presented with hemoptysis and developed XUAN. #Acute Renal Failure Differential includes intravascular volume depletion vs. HRS type 1 vs. ATN vs. Pulmonary Renal syndrome ([place] vs. Vasculitis) Urine studies showed bland urine w/o significant proteinuria FeNa < 1% indicating preserved tubular function pt was getting a large volume of saline but developed respiratory distress with CXR findings suggestive of CHF Agree with PRN Lasix for respiratory distress Check JONO, ANCA, Anti-GBM, C3, C4, CH50 can consider albumin and Midodrine for empiric management of HRS once respiratory status is stable pt may warrant a renal biopsy but may not be a candidate given high INR and compromised respiratory status dose all meds for CrCl less then 10 no acute indication for [employer] ASSISTANT MANAGER
--- NOTE | 2017-12-19 17:41 | PN ---
Progress Note (short form) - Note Progress Note: Pt with HIV, Hep C, cirrhosis and portal hypertension, coagulopathy, h/o TB on airborne precautions for hemoptysis, gallstones noted on CT/AXR/US but with contracted gallbladder, mild elevation amylase and lipase today, was moved to ICU after rapid response earlier today. His renal function has declined rapidly over the last two days, and ammonia checked today is high. He was given fluids on the floor and had an episode of pulmonary edema with respiratory difficulty, got lasix and was moved to ICU. Asked how he is today, he states, "a little ok. " Asked about abdominal pain, he indicates he is mainly sore in the suprapubic area. He now has a Alvarado catheter with some light yellow urine output. He is NPO except he is taking ice chips at times and occasional sips of water. Vital Signs Period Temp Pulse Resp BP Sys/Martinez Pulse Ox Last 24 Hr 97.5 F-98.2 F 54-81 20-22 106-133/59-71 92-96 Intake & Output 12/19/17 12/19/17 12/19/17 07:59 15:59 23:59 Intake Total 1250 100 Balance 1250 100 Intake: IV 1200 Normal Saline - 1,000 ml 1200 @ 1000 mls/hr IV ASDIR STA Rx#:[id number] IVPB 50 100 Other: Voiding Method Toilet PE: awake, on NRBM O2, mildly restless ext without significant edema, no cyanosis abdomen soft, obese, mildly tender across upper abdomen and in suprapubic area, no rebound or guarding Alvarado with light yellow urine, no scrotal edema no rash or jaundice CBCD WBC 13.9 K/mm3 (4.0-10.0) H 12/19/17 06:40 RBC 3.73 M/mm3 (4.00-5.60) L 12/19/17 06:40 Hgb 13.3 GM/dL (11.7-16.9) 12/19/17 06:40 Hct 40.6 % (35.4-49) 12/19/17 06:40 MCV 108.8 fl (80-96) H 12/19/17 06:40 MCHC 32.9 g/dl (32.0-35.9) 12/19/17 06:40 RDW 15.6 % (11.9-15.9) 12/19/17 06:40 Plt Count 84 K/MM3 (134-434) L 12/19/17 06:40 MPV 10.0 fl (7.5-11.1) 12/19/17 06:40 CMP Sodium 137 mmol/L (136-145) 12/19/17 06:40 Potassium 4.8 mmol/L (3.5-5.1) 12/19/17 06:40 Chloride 106 mmol/L (98-107) 12/19/17 06:40 Carbon Dioxide 17 mmol/L (21-32) L 12/19/17 06:40 Anion Gap 14 (8-16) 12/19/17 06:40 BUN 50 mg/dL (7-18) H D 12/19/17 06:40 Creatinine 4.6 mg/dL (0.7-1.3) H D 12/19/17 06:40 Creat Clearance w eGFR 13.28 (>60) 12/19/17 06:40 Calcium 7.9 mg/dL (8.5-10.1) L 12/19/17 06:40 Total Bilirubin 3.1 mg/dL (0.2-1.0) H D 12/19/17 06:40 AST 60 U/L (15-37) H 12/19/17 06:40 ALT 58 U/L (12-78) 12/19/17 06:40 Alkaline Phosphatase 75 U/L (45-117) D 12/19/17 06:40 Total Protein 7.7 g/dl (6.4-8.2) 12/19/17 06:40 Albumin 3.1 g/dl (3.4-5.0) L 12/19/17 06:40 lactate 5.9 this am am/lip 188/576 ammonia 47 uric acid just over normal INR, PTT INR 1.94 (0.82-1.09) H 12/19/17 06:40 ABG Results ABG pH 7.32 (7.35-7.45) L 12/19/17 14:10 ABG pCO2 at Pt Temp 27.5 mmHg (35-45) L 12/19/17 14:10 ABG pO2 at Pt Temp 74.6 mmHg (80-100) L 12/19/17 14:10 ABG HCO3 13.8 meq/L (22-26) L* 12/19/17 14:10 ABG O2 Sat (Measured) 93.0 % (90-98.9) 12/19/17 14:10 ABG O2 Content 16.3 % vol (15-22) 12/19/17 14:10 ABG Base Excess -10.6 meq/l (-2-2) L* 12/19/17 14:10 Urine Test Results Urine Color Shelly 12/19/17 14:45 Urine Appearance Cloudy 12/19/17 14:45 Urine pH 5.0 (5.0-8.0) D 12/19/17 14:45 Ur Specific [place] 1.024 (1.001-1.035) 12/19/17 14:45 Urine Protein 1+ (NEGATIVE) H 12/19/17 14:45 Urine Glucose (UA) Negative (NEGATIVE) 12/19/17 14:45 Urine Ketones Negative (NEGATIVE) 12/19/17 14:45 Urine Blood Negative (NEGATIVE) 12/19/17 14:45 Urine Nitrite Negative (NEGATIVE) 12/19/17 14:45 Urine Bilirubin Negative (NEGATIVE) 12/19/17 14:45 Ur Leukocyte Esterase Negative (NEGATIVE) 12/19/17 14:45 Ur Epithelial Cells Rare /HPF (FEW) 12/19/17 14:45 Urine Bacteria Rare /hpf (NONE SEEN) 12/19/17 14:45 Urine Mucus Rare 12/19/17 14:45 A/P: HIV+, Hep C, cirrhosis with coagulopathy and portal hypertension, h/o TB admitted with hemoptysis, ruling out TB acute renal failure and electrolyte abnormalities, also of unclear etiology - hepatorenal? nephrology on board pt has gallstones, but not necessarily the source of pain or primary problem at this time also with elevated amylase and lipase, unclear if related to pain or gallstones could consider HIDA scan and/or MRCP once medically more stable and off airborne precautions - if gallbladder or bile duct needs drainage, would defer to GI or IR for endoscopic or percutaneous intervention chest CT showed "extensive upper abdominal varices" - along with coagulopathy and liver disease, pt is high risk for any invasive intervention will follow peripherally and remain available for questions, as pt is not a surgical candidate Problem List - Problems (1) Calculus of gallbladder without cholecystitis without obstruction Code(s): K80.20 - CALCULUS OF GALLBLADDER W/O CHOLECYSTITIS W/O OBSTRUCTION (2) Advanced cirrhosis of liver Code(s): K74.60 - UNSPECIFIED CIRRHOSIS OF LIVER (3) Portal hypertension Code(s): K76.6 - PORTAL HYPERTENSION (4) Hepatitis C Code(s): B19.20 - UNSPECIFIED VIRAL HEPATITIS C WITHOUT HEPATIC COMA Qualifiers: Viral hepatitis chronicity: chronic Hepatic coma status: without hepatic coma Qualified Code(s): B18.2 - Chronic viral hepatitis C (5) Abdominal pain Code(s): R10.9 - UNSPECIFIED ABDOMINAL PAIN Qualifiers: Abdominal location: generalized Qualified Code(s): R10.84 - Generalized abdominal pain (6) Hemoptysis Code(s): R04.2 - HEMOPTYSIS (7) H/O TB (tuberculosis) Code(s): Z86.11 - PERSONAL HISTORY OF TUBERCULOSIS (8) HIV (human immunodeficiency virus infection) Code(s): B20 - HUMAN IMMUNODEFICIENCY VIRUS [HIV] DISEASE (9) Acute kidney failure Code(s): N17.9 - ACUTE KIDNEY FAILURE, UNSPECIFIED Qualifiers: Acute renal failure type: unspecified Qualified Code(s): N17.9 - Acute kidney failure, unspecified (10) Asthma Code(s): J45.909 - UNSPECIFIED ASTHMA, UNCOMPLICATED Qualifiers: Asthma severity: unspecified severity Asthma persistence: unspecified Asthma complication type: unspecified Qualified Code(s): J45.909 - Unspecified asthma, uncomplicated
[2017-12-19] MEDS ORDERED: PIPERACILLIN/TAZOB 2.25 GM/50 ML PREMIX BAG IVPB SCH (18:00)
[2017-12-19] MEDS: PIPERACILLIN/TAZOB 2.25 GM 2.25 GM in DEXTROSE 5%-WATER - 50 ML IVPB SCH (18:03)
[2017-12-19 18:06] LABS: ANION GAP 15 (8-16); BLOOD UREA NITROGEN 66 mg/dL (7-18); CALCIUM 7.5 mg/dL (8.5-10.1); CHLORIDE 104 mmol/L (98-107); CO2 15 mmol/L (21-32); CREATININE 5.4 mg/dL (0.7-1.3); GLUCOSE,RANDOM 144 mg/dL (74-106); MAGNESIUM 2.6 mg/dL (1.8-2.4); POTASSIUM 4.8 mmol/L (3.5-5.1); SODIUM 134 mmol/L (136-145)
[2017-12-19 18:20] LABS: PHOSPHOROUS 8.5 mg/dL (2.5-4.9)
[2017-12-19] MEDS ORDERED: FUROSEMIDE 40 MG/4 ML INJECTABLE VIAL IVPUSH ONE ×2 (19:25→20:34)
[2017-12-19] MEDS ORDERED: FUROSEMIDE 100 MG/10 ML INJECTABLE VIAL IVPB ONE (20:00)
--- NOTE | 2017-12-19 20:13 | PN ---
Progress Note (short form) - Note Progress Note: ICU Resident Note: Afternoon labs to be followed: LA, Mg, Phos, Hepatic panel Pt's output limited since nair placed at 26cc --Dr. Reid contacted due to seemingly worsening hepatorenal syndrome --Will trial on 160mg Lasix IVPB per renal; --If poor response will consent pt for trialysis catheter for emergency dialysis in AM due to signs of continued overload (i/e JVD noted to mandible) and worsening kidney levels --Renal dose dopamine to be initiated; discussed with ICU TRAFFIC II MANAGER Would delay CT scan due to instability of respiratory/metabolic status and not the primary problem
--- NOTE | 2017-12-19 20:44 | CONSULT ---
Consult Referred by:: Luisito Reason for Consultation:: Resp distress, renal failure, hypotension - History of Present Illness Chief Complaint: lower abd pain, nausea History of Present Illness: Mr. Wagner is a 57 year old man with a significant PMH of asthma, HTN, cirrhosis , IVDU (heroin), ? 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 In 2006, he also had a pleural effusion s/p chest tube placement. He reports this happened while he was being treated for Hep C. Did not respond to Harvoni (?). On this admit, he presented with hemoptysis over the past 3 days. He was originally admitted to the floor. CT chest revealed portal hypertension and liver cirrhosis, multiple gallstones, no cavitary lesions. Ascites was not reported on CT, or US abdomen. Course c/b new onset afib w RVR, which has since resolved. Course further c/b worsening renal failure and SOB, prompting transfer to the ICU. 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 Cardio/Vascular: Yes: HTN Pulmonary: Yes: Asthma Hepatobiliary: Yes: Cirrhosis, Cholelithiasis, Hepatitis C Infectious Disease: Yes: HIV Psych: Yes: Addictions - Past Surgical History Past Surgical History: Yes: Hernia Repair - Alcohol/Substance Use Hx Alcohol Use: No History of Substance Use: reports: Heroin - Smoking History Smoking history: Never smoked Have you smoked in the past 12 months: No - Social History Usual Living Arrangement: With Spouse ADL: Independent History of Recent Travel: No <Billie Mcdonald - Last Filed: 12/20/17 01:07> Consult Specialty:: PULM/CCM - Past Medical History Cardio/Vascular: Yes: HTN Pulmonary: Yes: Asthma, Other (h/o TB, hemoptysis) Hepatobiliary: Yes: Cirrhosis, Cholelithiasis, Hepatitis C (s/p harvoni-reports didnt work, course finished last year) Infectious Disease: Yes: HIV, Tuberculosis, Other (Hep C) Psych: Yes: Addictions (IV heroin use "many years ago") - Past Surgical History Past Surgical History: Yes: Hernia Repair (right inguinal 3 yrs ago) Additional Surgical History: pt states he has had surgery but does not say what - Alcohol/Substance Use Hx Alcohol Use: No History of Substance Use: reports: Heroin ("many years ago") - Smoking History Smoking history: Never smoked Have you smoked in the past 12 months: No - Social History Usual Living Arrangement: With Spouse ADL: Independent Occupation: unemployed History of Recent Travel: No <Aston Araujo - Last Filed: 12/20/17 01:21> Home Medications <Billie Mcdonald - Last Filed: 12/20/17 01:07> <Stone Araujodaina Restrepo - Last Filed: 12/20/17 01:21> - Allergies Allergies/Adverse Reactions: Allergies Allergy/AdvReac Type Severity Reaction Status Date / Time No Known Allergies Allergy Verified 12/16/17 11:59 - Home Medications Home Medications: Ambulatory Orders Verapamil HCl [Verapamil ER] 240 mg PO DAILY 08/02/15 Azithromycin [Zithromax -] 250 mg PO UTDICT #6 tab 03/10/16 Ledipasvir/Sofosbuvir [Harvoni 90-400 mg Tablet] 1 each PO DAILY 03/10/16 levoFLOXacin [Levaquin -] 500 mg PO DAILY #7 tablet 06/03/16 Emtricitab/Rilpiviri/Tenof Ala [Odefsey Tablet] 1 each PO DAILY 12/17/17 Family Disease History - Family Disease History Family Disease History: CA: Mother (bone), Other: Father (unknown medical problems) <Aston Araujo - Last Filed: 12/20/17 01:21> Review of Systems - Review of Systems Constitutional: reports: Lethargy Gastrointestinal: reports: Abdominal Pain (lower abd pain), Nausea, Vomiting <Billie Mcdonald - Last Filed: 12/20/17 01:07> Physical Exam Vital Signs: Vital Signs Temperature 96.6 F L 12/19/17 18:15 Pulse Rate 55 L 12/19/17 18:15 Respiratory Rate 22 12/19/17 16:00 Blood Pressure 117/55 12/19/17 18:15 O2 Sat by Pulse Oximetry (%) 96 12/19/17 15:00 Constitutional: Yes: Calm Eyes: Yes: WNL, Conjunctiva Clear HENT: Yes: WNL Neck: Yes: WNL Cardiovascular: Yes: Regular Rate and Rhythm, JVD Respiratory: Yes: Diminished, Rales (bibasilar crackles), SOB on Exertion. No: SOB, Stridor, Tachypnea, Wheezes Gastrointestinal: Yes: Normal Bowel Sounds, Soft, Abdomen, Obese, Tenderness ( lower abd pain) ...Rectal Exam: Yes: Deferred Renal/: Yes: Alvarado Present, Oliguria. No: CVA Tenderness - Left, CVA Tenderness - Right Musculoskeletal: Yes: WNL Extremities: Yes: Cool Edema: Yes Edema: LLE: Trace, RLE: Trace Peripheral Pulses WNL: Yes Integumentary: Yes: WNL Neurological: Yes: WNL ...Motor Strength: WNL Psychiatric: Yes: WNL Labs: CBC, BMP 12/19/17 06:40 12/19/17 20:30 Troponin, BNP 12/19/17 12/19/17 20:00 20:30 Troponin I Cancelled 0.23 H D Microbiology 12/16/17 16:37 Blood - Peripheral Venous Blood Culture - Preliminary NO GROWTH OBTAINED AFTER 72 HOURS, INCUBATION TO CONTINUE FOR 2 DAYS. 12/16/17 16:37 Blood - Peripheral Venous Blood Culture - Preliminary NO GROWTH OBTAINED AFTER 72 HOURS, INCUBATION TO CONTINUE FOR 2 DAYS. 12/16/17 17:10 Urine - Urine Clean Catch Urine Culture - Final Enterococcus Faecalis 12/17/17 00:00 Sputum - Expectorated AFB Smear Concentration - Preliminary 12/17/17 00:00 Sputum - Expectorated Direct Acid Fast Bacilli Smear - Final 12/17/17 00:00 Sputum - Expectorated Mycobacterial Culture - Preliminary 12/17/17 15:20 Sputum - Expectorated AFB Smear Concentration - Preliminary 12/17/17 15:20 Sputum - Expectorated Direct Acid Fast Bacilli Smear - Final 12/17/17 15:20 Sputum - Expectorated Mycobacterial Culture - Preliminary 12/17/17 00:00 Sputum - Expectorated AFB Smear Concentration - Preliminary 12/17/17 00:00 Sputum - Expectorated Direct Acid Fast Bacilli Smear - Final 12/17/17 00:00 Sputum - Expectorated Mycobacterial Culture - Preliminary 12/16/17 17:10 Urine For Antigen Detection Legionella Antigen - Final 12/16/17 17:10 Urine For Antigen Detection Streptococcus pneumoniae Antigen (M - Final INR, PTT INR 2.19 (0.82-1.09) H 12/19/17 20:30 <Billie Mcdonald - Last Filed: 12/20/17 01:07> Vital Signs: Vital Signs Temperature 96.6 F L 12/19/17 18:15 Pulse Rate 55 L 12/19/17 18:15 Respiratory Rate 22 12/19/17 16:00 Blood Pressure 117/55 12/19/17 18:15 O2 Sat by Pulse Oximetry (%) 96 12/19/17 15:00 Intake & Output 12/17/17 12/18/17 12/19/17 12/20/17 23:59 23:59 23:59 23:59 Intake Total 20 1300 2363 Output Total 30 Balance 20 1300 2333 Labs: CBC, BMP 12/19/17 06:40 12/19/17 17:00 <Aston Araujo - Last Filed: 12/20/17 01:21> Imaging - Results Chest X-ray: Pending (pending post trialysis placement), Report Reviewed ( A single frontal portable projection of the chest at 2:29 PM is submitted. The heart size is enlarged with increased interstitial markings diffusely consistent with pulmonary vascular congestion. Clinical correlation and follow- up is recommended. IMPRESSION: CHF) Ultrasound: Report Reviewed ([facility] 12/18/2017: IMPRESSION: 1. Thick walled and irregular gallbladder with calculi and positive Carrera's sign. Acute cholecystitis cannot be excluded. Clinical correlation and follow-up HIDA scan recommended. 2. Heterogeneous liver and spleen suspicious for hepatocellular disease. Clinical and laboratory correlation recommended. 3. Limited evaluation of the kidneys with no evidence of hydronephrosis or acute pathology. Please see above discussion.) EKG: Image Reviewed (Afib, Rt 96, Twave flattening I, II, II, aVF; TWI in lateral leads c/f inferolateral ischemia; prolonged QTc 497ms) <TamaraBillie - Last Filed: 12/20/17 01:07> Problem List - Problems (1) Abdominal pain Code(s): R10.9 - UNSPECIFIED ABDOMINAL PAIN QualifierTitle: Abdominal location: generalized Qualified Code(s): R10.84 - Generalized abdominal pain (2) Acute kidney failure Code(s): N17.9 - ACUTE KIDNEY FAILURE, UNSPECIFIED QualifierTitle: Acute renal failure type: unspecified Qualified Code(s): N17.9 - Acute kidney failure, unspecified (3) Advanced cirrhosis of liver Code(s): K74.60 - UNSPECIFIED CIRRHOSIS OF LIVER (4) Asthma Code(s): J45.909 - UNSPECIFIED ASTHMA, UNCOMPLICATED QualifierTitle: Asthma severity: unspecified severity Asthma persistence : unspecified Asthma complication type: unspecified Qualified Code(s): J45.909 - Unspecified asthma, uncomplicated (5) Cirrhosis Code(s): K74.60 - UNSPECIFIED CIRRHOSIS OF LIVER (6) Coagulopathy Code(s): D68.9 - COAGULATION DEFECT, UNSPECIFIED (7) HIV (human immunodeficiency virus infection) Code(s): B20 - HUMAN IMMUNODEFICIENCY VIRUS [HIV] DISEASE (8) Portal hypertension Code(s): K76.6 - PORTAL HYPERTENSION (9) Hepatitis C Code(s): B19.20 - UNSPECIFIED VIRAL HEPATITIS C WITHOUT HEPATIC COMA QualifierTitle: Viral hepatitis chronicity: chronic Hepatic coma status: without hepatic coma Qualified Code(s): B18.2 - Chronic viral hepatitis C <Billie Mcdonald - Last Filed: 12/20/17 01:07> Assessment/Plan Mr. Wagner is 57 year-old man with a PMH significant for HTN, asthma, +PPD, cirrhosis, Hep C s/p failed Harvoni treatment, HIV+, former IVDU, who presented with lower abd pain and hemoptysis, course c/b afib w RVR, respiratory distress , and XUAN, prompting transfer to ICU. Renal: Acute renal failure: XUAN likely pre-renal given FeNA 0.3% vs ATN vs HRS type I given h/o cirrhosis and heart failure, +oliguria, +metabolic acidosis --Renal consulted, appreciate --s/p Lasix to aide diuresis with minimal result --Started Dopamine for inotrope assisted diuresis --may need HD in am --renally dose meds, avoid nephrotoxins --will consider adding vasopressing for empiric HRS management --correct lytes as needed Pulm: Respiratory distress, likely flash pulmonary edema in setting of heart failure after IVF resuscitation, +bibasilar crackles, reporting improving breathing now --titrate supplemental O2 as able --continue to attempt diuresis with lasix and inotropes --low threshold to intubate ID: h/o HIV, VL undetecatlbe, Tcell 394, no h/o OIs, now with +leukocytosis, abd pain, +lactic acidosis, c/f sepsis, ddx includes CAP vs UTI vs GI etiology, culture data revealed +enterococcus UTI --Gonzalez-culture --cont Pip-Bipin for enterococcus UTI --f/u culture data --f/u AFB x3 pending in lab --remains on airborne iso for r/o TB currently CV: Acute severe systolic heart failure: LV severely reduced and severe global hypokinesis; +Afib new onset now back to SR --Trend trops --cardiology consult --held off on starting a/c given coagulopathy GI: +Cirrhosis w portal hypertension, +coagulopathy, +gallstone dz, elevated lipase & amplase c/f mild pancreatitis --GI following, appreciate --NPO for now --Trend LFTs --octreotide Neuro: Periods of confusion/delirium reported m/l 2/2 HE, AOx3 currently --Frequent reortientation --lactulose TID Heme: +coagulopathy, +Hemoptysis of uncertain etiology --Trend H/H --EGD when more stable DVT prophylaxis: hold chemical prophylaxis due to coagulopathy; SCDs GI prophylaxis: H2B (indication renal failure) <Billie Mcdonald - Last Filed: 12/20/17 01:07>
[2017-12-19] MEDS ORDERED: DOPAMINE 400 MG/D5W - 400,000 MCG/250 ML INFUS.BAG IVPB SCH (20:45)
[2017-12-19 21:29] LABS: INR 2.19 (0.82-1.09); PROTHROMBIN TIME (PATIENT) 24.7 SEC (9.98-11.88)
[2017-12-19 21:52] LABS: ALBUMIN 3.3 g/dl (3.4-5.0); ALK PHOS 64 U/L (45-117); ANION GAP 19 (8-16); BILIRUBIN,DIRECT 1.2 mg/dL (0.0-0.2); BILIRUBIN,TOTAL 3.5 mg/dL (0.2-1.0); BLOOD UREA NITROGEN 68 mg/dL (7-18); CALCIUM 7.5 mg/dL (8.5-10.1); CHLORIDE 103 mmol/L (98-107); CO2 12 mmol/L (21-32); CREATININE 6.1 mg/dL (0.7-1.3); GLUCOSE,RANDOM 141 mg/dL (74-106); MAGNESIUM 2.7 mg/dL (1.8-2.4); POTASSIUM 4.5 mmol/L (3.5-5.1); SGOT/AST 69 U/L (15-37); SGPT/ALT 67 U/L (12-78); SODIUM 134 mmol/L (136-145); TOT PROT 7.7 g/dl (6.4-8.2)
[2017-12-19 22:11] LABS: PHOSPHOROUS 9.6 mg/dL (2.5-4.9)
[2017-12-19] MEDS ORDERED: LIDOCAINE HCL 1%, 10 MG/ML (20ML VIAL) ONE (22:54)
--- NOTE | 2017-12-19 23:07 | EKG ---
Test Reason : Blood Pressure : / mmHG Vent. Rate : 071 BPM Atrial Rate : 174 BPM P-R Int : 000 ms QRS Dur : 104 ms QT Int : 540 ms P-R-T Axes : 000 063 046 degrees QTc Int : 586 ms ATRIAL FIBRILLATION PROLONGED QT ABNORMAL ECG WHEN COMPARED WITH ECG OF 16-DEC-2017 17:59, T WAVE VARIATION VENT. RATE HAS DECREASED QT HAS LENGTHENED Confirmed by MARIBEL ROLLE, JOSH ([id number]) on 12/19/2017 11:07:32 PM Referred By: Confirmed By:JOSH LÓPEZ MD
--- NOTE | 2017-12-19 23:54 | PROC ---
Central Line Insertion Indication: Vasopressor, Other (renal failure) Risks and Benefits Explained: Yes Consent on Chart: Yes Central Line: Dialysis Cath, Tri Lumen Anesthesia: 1% Lidocaine Sterile Technique: Yes Ultrasound Guided Assistance: Yes Position: Right Internal Jugular Post Insertion: Yes: Bilateral Breath Sounds, Bilateral Chest Expansion, Chest X-Ray Ordered Sterile Dressing Applied: Yes
[2017-12-20] MEDS ORDERED: DOBUTAMINE 250 MG/D5W - 250,000 MCG/250 ML INFUS.BAG ONE (01:40)
[2017-12-20] MEDS ORDERED: DOBUTAMINE 250 MG/D5W - 250,000 MCG/250 ML INFUS.BAG IV SCH ×2 (01:45)
[2017-12-20] MEDS ORDERED: FUROSEMIDE INJECTION 100 MG in DEXTROSE 5%-WATER - 90 ML IVPB SCH (01:45)
[2017-12-20] MEDS ORDERED: VASOPRESSIN 50 UNITS in SODIUM CHLORIDE 97.5 ML IVPB SCH ×2 (01:45→05:50)
[2017-12-20] MEDS: PIPERACILLIN/TAZOB 2.25 GM 2.25 GM in DEXTROSE 5%-WATER - 50 ML IVPB SCH ×3 (01:50→18:50)
[2017-12-20] MEDS: FUROSEMIDE INJECTION 100 MG in SODIUM CHLORIDE 90 ML IVPB SCH ×2 (03:07→20:52)
[2017-12-20 06:22] LABS: HEMATOCRIT 34.3 % (35.4-49); HEMOGLOBIN 11.7 GM/dL (11.7-16.9); MCH 36.9 pg (25.7-33.7); MEAN CELL VOLUME 108.5 fl (80-96); MEAN PLT VOLUME 10.4 fl (7.5-11.1); PLATELET COUNT 51 K/MM3 (134-434); RBC 3.16 M/mm3 (4.00-5.60); RDW 15.5 % (11.9-15.9); WHITE BLOOD COUNT 6.2 K/mm3 (4.0-10.0)
[2017-12-20] MEDS: LACTULOSE 20 GM/30 ML UDC (FOR ORAL USE ONLY) PO SCH ×3 (06:39→21:24)
[2017-12-20] MEDS: DOBUTAMINE 250 MG/D5W - 250,000 MCG/250 ML INFUS.BAG IV SCH ×5 (06:40→21:37)
[2017-12-20 06:55] LABS: ALBUMIN 2.7 g/dl (3.4-5.0); ANION GAP 13 (8-16); BLOOD UREA NITROGEN 78 mg/dL (7-18); CHLORIDE 102 mmol/L (98-107); CO2 18 mmol/L (21-32); CREATININE 5.5 mg/dL (0.7-1.3); GLUCOSE,RANDOM 158 mg/dL (74-106); MAGNESIUM 2.5 mg/dL (1.8-2.4); POTASSIUM 4.7 mmol/L (3.5-5.1); SGOT/AST 111 U/L (15-37); SGPT/ALT 86 U/L (12-78); SODIUM 133 mmol/L (136-145)
[2017-12-20 06:56] LABS: ALK PHOS 49 U/L (45-117); BILIRUBIN,TOTAL 3.1 mg/dL (0.2-1.0); TOT PROT 6.6 g/dl (6.4-8.2)
[2017-12-20 07:21] LABS: PHOSPHOROUS 8.6 mg/dL (2.5-4.9)
[2017-12-20] MEDS ORDERED: PT OWN MED DRAWER 7, Y5N ONE ×4 (07:40→21:26)
--- NOTE | 2017-12-20 07:48 | PN ---
Physical Exam: SUBJECTIVE: Patient seen and examined in ICU. On venti mask. Abdominal pain has resolved. OBJECTIVE: Vital Signs Period Temp Pulse Resp BP Sys/Martinez Pulse Ox Last 24 Hr 96.6 F-98.0 F 55-84 14-26 107-146/48-79 96-99 GENERAL: The patient is awake, alert, and fully oriented, in no acute distress. Becomes dyspnic with speaking. LUNGS: Bibasilar crackles HEART: Irregular, S1, S2, +JVD ABDOMEN: soft, not tender, not distended; palpable liver edge : nair in place, clear yellow urine EXTREMITIES: 2+ pulses, warm, well-perfused, no edema. NEUROLOGICAL: Cranial nerves II through XII grossly intact. Normal speech, moving all extremities freely Laboratory Results - last 24 hr 12/19/17 12/19/17 12/19/17 06:00 06:00 06:00 WBC RBC Hgb Hct MCV MCH MCHC RDW Plt Count MPV Total Counted Neutrophils % (Manual) Band Neutrophils % Lymphocytes % (Manual) Monocytes % (Manual) Polychromasia Macrocytosis Tear Drop Cells Ovalocytes ESR PT with INR INR Puncture Site ABG pH ABG pCO2 at Pt Temp ABG pO2 at Pt Temp ABG HCO3 ABG O2 Sat (Measured) ABG O2 Content ABG Base Excess Abdullahi Test O2 Delivery Device Oxygen Flow Rate Mechanical Rate PEEP Sodium Potassium Chloride Carbon Dioxide Anion Gap BUN Creatinine Creat Clearance w eGFR Random Glucose Lactic Acid Calcium Phosphorus Magnesium Total Bilirubin Direct Bilirubin AST ALT Alkaline Phosphatase Creatine Kinase Creatine Kinase Index CK-MB (CK-2) Troponin I Total Protein Albumin Total Amylase Lipase Free T4 Free T3 Total T3 Urine Color Urine Appearance Urine pH Ur Specific Abernathy Urine Protein Cancelled Urine Glucose (UA) Urine Ketones Urine Blood Urine Nitrite Urine Bilirubin Urine Urobilinogen Ur Leukocyte Esterase Urine WBC (Auto) Urine RBC (Auto) Ur Epithelial Cells Calcium Oxalate Crystal Urine Bacteria Urine Mucus Urine Eosinophils U Random Total Protein Ur Random Sodium Cancelled Ur Random Potassium Ur Random Chloride Urine Creatinine Cancelled 12/19/17 12/19/17 12/19/17 06:00 06:40 06:40 WBC RBC Hgb Hct MCV MCH MCHC RDW Plt Count MPV Total Counted 100 Neutrophils % (Manual) 87.0 H Band Neutrophils % 2.0 Lymphocytes % (Manual) 4.0 L D Monocytes % (Manual) 5 Polychromasia 1+ Macrocytosis 1+ Tear Drop Cells 1+ Ovalocytes 1+ ESR PT with INR INR Puncture Site ABG pH ABG pCO2 at Pt Temp ABG pO2 at Pt Temp ABG HCO3 ABG O2 Sat (Measured) ABG O2 Content ABG Base Excess Abdullahi Test O2 Delivery Device Oxygen Flow Rate Mechanical Rate PEEP Sodium Potassium Chloride Carbon Dioxide Anion Gap BUN Creatinine Creat Clearance w eGFR Random Glucose Lactic Acid Calcium Phosphorus Magnesium Total Bilirubin Direct Bilirubin AST ALT Alkaline Phosphatase Creatine Kinase 174 Creatine Kinase Index 2.2 CK-MB (CK-2) 3.957 H Troponin I Total Protein Albumin Total Amylase 188 H D Lipase 576 H Free T4 1.10 Free T3 Total T3 Urine Color Urine Appearance Urine pH Ur Specific Abernathy Urine Protein Urine Glucose (UA) Urine Ketones Urine Blood Urine Nitrite Urine Bilirubin Urine Urobilinogen Ur Leukocyte Esterase Urine WBC (Auto) Urine RBC (Auto) Ur Epithelial Cells Calcium Oxalate Crystal Urine Bacteria Urine Mucus Urine Eosinophils U Random Total Protein 82 H Ur Random Sodium 27 Ur Random Potassium 52.0 Ur Random Chloride < 10 Urine Creatinine 336.0 12/19/17 12/19/17 12/19/17 06:40 06:40 06:40 WBC RBC Hgb Hct MCV MCH MCHC RDW Plt Count MPV Total Counted Neutrophils % (Manual) Band Neutrophils % Lymphocytes % (Manual) Monocytes % (Manual) Polychromasia Macrocytosis Tear Drop Cells Ovalocytes ESR 6 PT with INR INR Puncture Site ABG pH ABG pCO2 at Pt Temp ABG pO2 at Pt Temp ABG HCO3 ABG O2 Sat (Measured) ABG O2 Content ABG Base Excess Abdullahi Test O2 Delivery Device Oxygen Flow Rate Mechanical Rate PEEP Sodium Potassium Chloride Carbon Dioxide Anion Gap BUN Creatinine Creat Clearance w eGFR Random Glucose Lactic Acid 5.9 H* Calcium Phosphorus Magnesium Total Bilirubin Direct Bilirubin AST ALT Alkaline Phosphatase Creatine Kinase Creatine Kinase Index CK-MB (CK-2) Troponin I Total Protein Albumin Total Amylase Lipase Free T4 Free T3 1.6 L Total T3 70.00 L Urine Color Urine Appearance Urine pH Ur Specific Abernathy Urine Protein Urine Glucose (UA) Urine Ketones Urine Blood Urine Nitrite Urine Bilirubin Urine Urobilinogen Ur Leukocyte Esterase Urine WBC (Auto) Urine RBC (Auto) Ur Epithelial Cells Calcium Oxalate Crystal Urine Bacteria Urine Mucus Urine Eosinophils U Random Total Protein Ur Random Sodium Ur Random Potassium Ur Random Chloride Urine Creatinine 12/19/17 12/19/17 12/19/17 14:10 14:45 14:45 WBC RBC Hgb Hct MCV MCH MCHC RDW Plt Count MPV Total Counted Neutrophils % (Manual) Band Neutrophils % Lymphocytes % (Manual) Monocytes % (Manual) Polychromasia Macrocytosis Tear Drop Cells Ovalocytes ESR PT with INR INR Puncture Site Right radial ABG pH 7.32 L ABG pCO2 at Pt Temp 27.5 L ABG pO2 at Pt Temp 74.6 L ABG HCO3 13.8 L* ABG O2 Sat (Measured) 93.0 ABG O2 Content 16.3 ABG Base Excess -10.6 L* Abdullahi Test Positive O2 Delivery Device Room air Oxygen Flow Rate 21% Mechanical Rate No PEEP 0.0 Sodium Potassium Chloride Carbon Dioxide Anion Gap BUN Creatinine Creat Clearance w eGFR Random Glucose Lactic Acid Calcium Phosphorus Magnesium Total Bilirubin Direct Bilirubin AST ALT Alkaline Phosphatase Creatine Kinase Creatine Kinase Index CK-MB (CK-2) Troponin I Total Protein Albumin Total Amylase Lipase Free T4 Free T3 Total T3 Urine Color Shelly Urine Appearance Cloudy Urine pH 5.0 D Ur Specific Abernathy 1.024 Urine Protein 1+ H Urine Glucose (UA) Negative Urine Ketones Negative Urine Blood Negative Urine Nitrite Negative Urine Bilirubin Negative Urine Urobilinogen Negative Ur Leukocyte Esterase Negative Urine WBC (Auto) 10 Urine RBC (Auto) 3 Ur Epithelial Cells Rare Calcium Oxalate Crystal Rare Urine Bacteria Rare Urine Mucus Rare Urine Eosinophils Cancelled U Random Total Protein Ur Random Sodium Ur Random Potassium Ur Random Chloride Urine Creatinine 12/19/17 12/19/17 12/19/17 17:00 17:00 20:00 WBC RBC Hgb Hct MCV MCH MCHC RDW Plt Count MPV Total Counted Neutrophils % (Manual) Band Neutrophils % Lymphocytes % (Manual) Monocytes % (Manual) Polychromasia Macrocytosis Tear Drop Cells Ovalocytes ESR PT with INR INR Puncture Site ABG pH ABG pCO2 at Pt Temp ABG pO2 at Pt Temp ABG HCO3 ABG O2 Sat (Measured) ABG O2 Content ABG Base Excess Abdullahi Test O2 Delivery Device Oxygen Flow Rate Mechanical Rate PEEP Sodium 134 L Potassium 4.8 Chloride 104 Carbon Dioxide 15 L Anion Gap 15 BUN 66 H D Creatinine 5.4 H Creat Clearance w eGFR Random Glucose 144 H Lactic Acid 6.7 H* Calcium 7.5 L Phosphorus 8.5 H Magnesium 2.6 H Total Bilirubin Direct Bilirubin AST ALT Alkaline Phosphatase Creatine Kinase Creatine Kinase Index CK-MB (CK-2) Troponin I Cancelled Total Protein Albumin Total Amylase Lipase Free T4 Free T3 Total T3 Urine Color Urine Appearance Urine pH Ur Specific Abernathy Urine Protein Urine Glucose (UA) Urine Ketones Urine Blood Urine Nitrite Urine Bilirubin Urine Urobilinogen Ur Leukocyte Esterase Urine WBC (Auto) Urine RBC (Auto) Ur Epithelial Cells Calcium Oxalate Crystal Urine Bacteria Urine Mucus Urine Eosinophils U Random Total Protein Ur Random Sodium Ur Random Potassium Ur Random Chloride Urine Creatinine 12/19/17 12/19/17 12/19/17 20:30 20:30 20:30 WBC RBC Hgb Hct MCV MCH MCHC RDW Plt Count MPV Total Counted Neutrophils % (Manual) Band Neutrophils % Lymphocytes % (Manual) Monocytes % (Manual) Polychromasia Macrocytosis Tear Drop Cells Ovalocytes ESR PT with INR 24.70 H INR 2.19 H Puncture Site ABG pH ABG pCO2 at Pt Temp ABG pO2 at Pt Temp ABG HCO3 ABG O2 Sat (Measured) ABG O2 Content ABG Base Excess Abdullahi Test O2 Delivery Device Oxygen Flow Rate Mechanical Rate PEEP Sodium 134 L Potassium 4.5 Chloride 103 Carbon Dioxide 12 L Anion Gap 19 H BUN 68 H Creatinine 6.1 H Creat Clearance w eGFR Random Glucose 141 H Lactic Acid 10.4 H* Calcium 7.5 L Phosphorus 9.6 H* Magnesium 2.7 H Total Bilirubin 3.5 H Direct Bilirubin 1.2 H D AST 69 H ALT 67 Alkaline Phosphatase 64 Creatine Kinase Creatine Kinase Index CK-MB (CK-2) Troponin I 0.23 H D Total Protein 7.7 Albumin 3.3 L Total Amylase Lipase Free T4 Free T3 Total T3 Urine Color Urine Appearance Urine pH Ur Specific Abernathy Urine Protein Urine Glucose (UA) Urine Ketones Urine Blood Urine Nitrite Urine Bilirubin Urine Urobilinogen Ur Leukocyte Esterase Urine WBC (Auto) Urine RBC (Auto) Ur Epithelial Cells Calcium Oxalate Crystal Urine Bacteria Urine Mucus Urine Eosinophils U Random Total Protein Ur Random Sodium Ur Random Potassium Ur Random Chloride Urine Creatinine 12/19/17 12/20/17 12/20/17 20:30 00:30 05:55 WBC RBC Hgb Hct MCV MCH MCHC RDW Plt Count MPV Total Counted Neutrophils % (Manual) Band Neutrophils % Lymphocytes % (Manual) Monocytes % (Manual) Polychromasia Macrocytosis Tear Drop Cells Ovalocytes ESR PT with INR INR Puncture Site ABG pH ABG pCO2 at Pt Temp ABG pO2 at Pt Temp ABG HCO3 ABG O2 Sat (Measured) ABG O2 Content ABG Base Excess Abdullahi Test O2 Delivery Device Oxygen Flow Rate Mechanical Rate PEEP Sodium Potassium Chloride Carbon Dioxide Anion Gap BUN Creatinine Creat Clearance w eGFR Random Glucose Lactic Acid 5.7 H* Calcium Phosphorus Cancelled Magnesium Cancelled Total Bilirubin Cancelled Direct Bilirubin Cancelled AST Cancelled ALT Cancelled Alkaline Phosphatase Cancelled Creatine Kinase Creatine Kinase Index CK-MB (CK-2) Troponin I 0.22 H Total Protein Cancelled Albumin Cancelled Total Amylase Lipase Free T4 Free T3 Total T3 Urine Color Urine Appearance Urine pH Ur Specific Abernathy Urine Protein Urine Glucose (UA) Urine Ketones Urine Blood Urine Nitrite Urine Bilirubin Urine Urobilinogen Ur Leukocyte Esterase Urine WBC (Auto) Urine RBC (Auto) Ur Epithelial Cells Calcium Oxalate Crystal Urine Bacteria Urine Mucus Urine Eosinophils U Random Total Protein Ur Random Sodium Ur Random Potassium Ur Random Chloride Urine Creatinine 12/20/17 12/20/17 12/20/17 05:55 05:55 05:55 WBC 6.2 D RBC 3.16 L Hgb 11.7 D Hct 34.3 L D MCV 108.5 H MCH 36.9 H MCHC 34.0 RDW 15.5 Plt Count 51 L D MPV 10.4 Total Counted Neutrophils % (Manual) Band Neutrophils % Lymphocytes % (Manual) Monocytes % (Manual) Polychromasia Macrocytosis Tear Drop Cells Ovalocytes ESR PT with INR INR Puncture Site ABG pH ABG pCO2 at Pt Temp ABG pO2 at Pt Temp ABG HCO3 ABG O2 Sat (Measured) ABG O2 Content ABG Base Excess Abdullahi Test O2 Delivery Device Oxygen Flow Rate Mechanical Rate PEEP Sodium 133 L Potassium 4.7 Chloride 102 Carbon Dioxide 18 L D Anion Gap 13 BUN 78 H Creatinine 5.5 H Creat Clearance w eGFR 10.81 Random Glucose 158 H Lactic Acid Calcium 7.0 L Phosphorus 8.6 H Magnesium 2.5 H Total Bilirubin 3.1 H Direct Bilirubin AST 111 H D ALT 86 H D Alkaline Phosphatase 49 D Creatine Kinase Creatine Kinase Index CK-MB (CK-2) Troponin I 0.22 H Total Protein 6.6 Albumin 2.7 L Total Amylase Lipase Free T4 Free T3 Total T3 Urine Color Urine Appearance Urine pH Ur Specific Abernathy Urine Protein Urine Glucose (UA) Urine Ketones Urine Blood Urine Nitrite Urine Bilirubin Urine Urobilinogen Ur Leukocyte Esterase Urine WBC (Auto) Urine RBC (Auto) Ur Epithelial Cells Calcium Oxalate Crystal Urine Bacteria Urine Mucus Urine Eosinophils U Random Total Protein Ur Random Sodium Ur Random Potassium Ur Random Chloride Urine Creatinine Active Medications Generic Name Dose Route Start Last Admin Trade Name Rosa PRN Reason Stop Dose Admin Albuterol Sulfate 1 amp 12/16/17 17:44 Ventolin 0.083% Nebulizer Soln - NEB Q4H PRN SHORT OF BREATH/WHEEZING Octreotide Acetate 1,200 mcg/ 500 mls @ 20.83 mls/hr 12/19/17 12:15 12/19/17 13:31 Dextrose IVPB 20.83 mls/hr TITR KAREN Administration Protocol 50 MCG/HR Piperacillin Sod/Tazobactam 50 mls @ 100 mls/hr 12/19/17 18:00 12/20/17 01:50 Sod 2.25 gm/ Dextrose IVPB 100 mls/hr Q8H-IV KAREN Administration Furosemide 100 mg/ Sodium 100 mls @ 5 mls/hr 12/20/17 02:00 12/20/17 03:07 Chloride IVPB 5 mg/hr TITR KAREN 5 mls/hr Protocol Administration 5 MG/HR Dobutamine HCl/Dextrose 250,000 mcg in 250 mls @ 66.678 mls/hr 12/20/17 05:50 12/20/17 06:40 Dobutamine 250 Mg/D5w - IV 10 mcg/kg/min TITR KAREN 66.678 mls/hr 10 MCG/KG/MIN Administration Vasopressin 50 units/ Sodium 100 mls @ 4.8 mls/hr 12/20/17 05:50 12/20/17 06: 42 Chloride IVPB 2.4 units/hr TITR KAREN 4.8 mls/hr 2.4 UNITS/HR Administration Lactulose 20 gm 12/19/17 14:00 12/20/17 06:39 Cephulac (Oral Use) PO 20 gm TID KAREN Administration Methylprednisolone Sodium Succinate 40 mg 12/19/17 22:00 12/19/17 21:38 Solu-Medrol - IVPUSH 40 mg BID KAREN Administration Verapamil HCl 240 mg 12/17/17 10:00 12/19/17 09:17 Calan Sr - PO 240 mg DAILY KAREN Administration ASSESSMENT/PLAN: 57 year-old male with a PMH significant for HTN, asthma, +PPD, cirrhosis, Hep C s/p failed Harvoni treatment, HIV+, former IVDU. Acute renal failure --Cr 5.5 --was initially anuric; now making urine with dobutamine and lasix drips Acute severe systolic heart failure --12/19 Echo: LV severely reduced, severe global hypokinesis, moderate cLVH; RV "appears diminished"; LA severely dilated, RA moderately dilated; mild MR; mild PI; moderate aortic root dilatation, mildly dilated ascending aorta (4.1cm) --continue dobutamine and lasix drips --cardiology following Atrial fibrillation, resolved --back in SR Cirrhosis Hepatitis C Portal hypertension Abdominal varices --no indication of ascites on US --octreotide drip d/c'd Metabolic encephalopathy Hyperammonemia --mental status improved --lactulose TID Community acquired pneumonia +PPD --LLL infiltrate, continue Zosyn --AFB sputum smears neg x 3 Abdominal pain Cholilithiasis --CTAP pending --HIDA scan when more stable HIV --10/2017 T cell count 394, viral load undetectable FEN Fluids: PO intake adequate Electrolytes: replete as indicated Nutrition: clears DVT prophylaxis: hold chemical prophylaxis due to hemoptysis; SCDs Visit type - Emergency Visit Emergency Visit: Yes ED Registration Date: 12/16/17 Care time: The patient presented to the Emergency Department on the above date and was hospitalized for further evaluation of their emergent condition. - New Patient This patient is new to me today: No - Critical Care Critical Care patient: Yes Total Critical Care Time (in minutes): 50 Critical Care Statement: The care of this patient involved high complexity decision making to prevent further life threatening deterioration of the patient 's condition and/or to evaluate & treat vital organ system(s) failure or risk of failure.
--- NOTE | 2017-12-20 08:15 | PN ---
Progress Note, Physician History of Present Illness: Patient feels much improved than yesterday. Less hemoptysis. Feels thirsty. Last night pt was started on Dopamine renal dose. Now switched to Dobutamine 20 and Vasopressin 4.6. Given 160mg IV lasix last night, started on drip. UOP +1,200. - Current Medication List Current Medications: Active Medications Albuterol Sulfate (Ventolin 0.083% Nebulizer Soln -) 1 amp NEB Q4H PRN PRN Reason: SHORT OF BREATH/WHEEZING Octreotide Acetate 1,200 mcg/ (Dextrose) 500 mls @ 20.83 mls/hr IVPB TITR KAREN; 50 MCG/HR PRN Reason: Protocol Last Admin: 12/19/17 13:31 Dose: 20.83 mls/hr Piperacillin Sod/Tazobactam (Sod 2.25 gm/ Dextrose) 50 mls @ 100 mls/hr IVPB Q8H-IV KAREN Last Admin: 12/20/17 01:50 Dose: 100 mls/hr Furosemide 100 mg/ Sodium (Chloride) 100 mls @ 5 mls/hr IVPB TITR KAREN; 5 MG/HR PRN Reason: Protocol Last Admin: 12/20/17 03:07 Dose: 5 mg/hr, 5 mls/hr Dobutamine HCl/Dextrose (Dobutamine 250 Mg/D5w -) 250,000 mcg in 250 mls @ 66.678 mls/hr IV TITR KAREN PRN Reason: 10 MCG/KG/MIN Last Admin: 12/20/17 08:05 Dose: 10 mcg/kg/min, 66.678 mls/hr Vasopressin 50 units/ Sodium (Chloride) 100 mls @ 4.8 mls/hr IVPB TITR KAREN PRN Reason: 2.4 UNITS/HR Last Admin: 12/20/17 06:42 Dose: 2.4 units/hr, 4.8 mls/hr Lactulose (Cephulac (Oral Use)) 20 gm PO TID [facility] Last Admin: 12/20/17 06:39 Dose: 20 gm Methylprednisolone Sodium Succinate (Solu-Medrol -) 40 mg IVPUSH BID [facility] Last Admin: 12/19/17 21:38 Dose: 40 mg Verapamil HCl (Calan Sr -) 240 mg PO DAILY [facility] Last Admin: 12/19/17 09:17 Dose: 240 mg - Objective Vital Signs: Vital Signs Temperature 97.6 F 12/20/17 06:00 Pulse Rate 84 12/20/17 07:00 Respiratory Rate 16 12/20/17 07:00 Blood Pressure 137/49 12/20/17 08:05 O2 Sat by Pulse Oximetry (%) 99 12/19/17 22:00 Additional Findings/Remarks: GEN: Awake, alert, talkative HEENT: PERRLA, EOMi CV: S1, S2, RRR LUNG: Bibasilar crackles ABD: Soft, NT MSK: Mild pitting edema, no erythema Labs: CBC, BMP 12/20/17 05:55 12/20/17 05:55 INR, PTT INR 2.19 (0.82-1.09) H 12/19/17 20:30 Assessment/Plan 57yo with PMHx of Cirrhosis and TB (treated x1) presents with gross hemoptysis. In ICU after RR event. Was given IVF resuscitation leading to likely CHF exacerbation. # Renal: Acute Kidney Injury -- In light of echo findings of severe LV dysfunction, most likely strong cardiorenal component. Other ddx include pulmonary renal. -- On Dobutamine and Lasix ggt doing well, UOP improving, Cr improving. -- Possibly hepatorenal component, started Albumin and Midrodine. # Pulm: Hemoptysis, Hx of TB -- Hemoptysis is improving. Less likely active TB since 3 preliminary negative AFB. Could be 2/2 PNA vs pulmonary-renal syndrome. -- GBM antibodies sent, will follow. # ID: Possible PNA, Hx of TB, HIV -- Some LLL on Chest CT. On Zosyn coverage -- No WBC, no fever. -- Hold HIV tx for now # GI: Hep C (untreated), Cirrhosis w/ portal HTN, Gallstones -- Extensive upper abdominal varices on chest CT, continue Octreotide + Lactulose, monitor PLT and INR -- Not surgical candidate zhanna # CV: Hx of HTN, on verapamil 240 daily # FEN/PPx - NPO, no IVF, SCDs, GI ppx Nikki Monsivais MD - PGY1 ICU Medicine
--- NOTE | 2017-12-20 08:53 | PN ---
Progress Note (short form) - Note Progress Note: transferred to ICU with SOB and hypoxia- volume overload, anuria, acute renal failure echo with low lv ejection function no abdominal pain, no cough placed on dobutamine and vasopressin ovenight, now with urine output Vital Signs Period Temp Pulse Resp BP Sys/Martinez Pulse Ox Last 24 Hr 96.6 F-98.0 F 55-84 14-26 107-146/48-79 96-99 cor-rrr llungs crackles at bases abd soft,nt ext trace edema nair CBC, BMP 12/20/17 05:55 12/20/17 05:55 Microbiology 12/16/17 16:37 Blood - Peripheral Venous Blood Culture - Preliminary NO GROWTH OBTAINED AFTER 72 HOURS, INCUBATION TO CONTINUE FOR 2 DAYS. 12/16/17 16:37 Blood - Peripheral Venous Blood Culture - Preliminary NO GROWTH OBTAINED AFTER 72 HOURS, INCUBATION TO CONTINUE FOR 2 DAYS. 12/16/17 17:10 Urine - Urine Clean Catch Urine Culture - Final Enterococcus Faecalis 12/17/17 00:00 Sputum - Expectorated AFB Smear Concentration - Preliminary 12/17/17 00:00 Sputum - Expectorated Direct Acid Fast Bacilli Smear - Final 12/17/17 00:00 Sputum - Expectorated Mycobacterial Culture - Preliminary 12/17/17 15:20 Sputum - Expectorated AFB Smear Concentration - Preliminary 12/17/17 15:20 Sputum - Expectorated Direct Acid Fast Bacilli Smear - Final 12/17/17 15:20 Sputum - Expectorated Mycobacterial Culture - Preliminary 12/17/17 00:00 Sputum - Expectorated AFB Smear Concentration - Preliminary 12/17/17 00:00 Sputum - Expectorated Direct Acid Fast Bacilli Smear - Final 12/17/17 00:00 Sputum - Expectorated Mycobacterial Culture - Preliminary 12/16/17 17:10 Urine For Antigen Detection Legionella Antigen - Final 12/16/17 17:10 Urine For Antigen Detection Streptococcus pneumoniae Antigen (M - Final a/p CHF hemoptysis r/o tb-f/u sputum afb- hopefully d/c isolation later today after results from TB lab [facility] LLL infiltrate HIV- HOLD MEDS- ARF- ?etiology abdominal pain- gallstones, elevated lipase- ?pancreatitis continue zosyn-adjust for XUAN repeat UA noted spoke with clinic in [place]- cd4 count 394 in October viral load undectable last measurable viral load was 50 in 2010 currently on odefsey- history of +PPD- they have no history of TB hep c with cirrhosis no ascites- failed Harvoni January to July 2016 Problem List - Problems (1) Hemoptysis Code(s): R04.2 - HEMOPTYSIS (2) Pneumonia Code(s): J18.9 - PNEUMONIA, UNSPECIFIED ORGANISM Qualifiers: Pneumonia type: due to unspecified organism Laterality: left Lung location: lower lobe of lung Qualified Code(s): J18.1 - Lobar pneumonia, unspecified organism (3) Abdominal pain Code(s): R10.9 - UNSPECIFIED ABDOMINAL PAIN Qualifiers: Abdominal location: generalized Qualified Code(s): R10.84 - Generalized abdominal pain (4) Hepatitis C Code(s): B19.20 - UNSPECIFIED VIRAL HEPATITIS C WITHOUT HEPATIC COMA Qualifiers: Viral hepatitis chronicity: chronic Hepatic coma status: without hepatic coma Qualified Code(s): B18.2 - Chronic viral hepatitis C (5) Cirrhosis Code(s): K74.60 - UNSPECIFIED CIRRHOSIS OF LIVER
[2017-12-20] MEDS: methylPREDNISolone NA SUCC 40 MG/1 ML VIAL IVPUSH SCH (10:36)
[2017-12-20] MEDS: PANTOPRAZOLE SODIUM 40 MG VIAL IVPUSH SCH (10:36)
--- NOTE | 2017-12-20 10:54 | CON.CARD ---
Consult Consult Specialty:: Cardiology Referred by:: Kasey Jorge Reason for Consultation:: Systolic CHF - History of Present Illness Chief Complaint: SOB and hemoptysis History of Present Illness: Mr. Wagner is a 57 year old male with a pmhx of asthma, HIV, htn, cirrhosis, IVDU, ?TB, h/o pleural effusion s/p chest tube in 2005 who presents with hemoptysis for [address] chest with liver cirrhosis, spleenomegaly, and extensive upper abdominal varices along with b/l pleural effusions. Echocardiogram with severe global LV hypokinesis. EKG with afib which is now converted back to sinus. Developed worsening sob yesterday in the setting of AI and minimal urine output. Was started on dobutamine and vasopressin and with improvement in urine output and sob. 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 Cardio/Vascular: Yes: HTN Pulmonary: Yes: Asthma, Other (h/o TB, hemoptysis) Hepatobiliary: Yes: Cirrhosis, Cholelithiasis, Hepatitis C (s/p harvoni-reports didnt work, course finished last year) Infectious Disease: Yes: HIV, Tuberculosis, Other (Hep C) Psych: Yes: Addictions (IV heroin use "many years ago") - Past Surgical History Past Surgical History: Yes: Hernia Repair (right inguinal 3 yrs ago) Additional Surgical History: pt states he has had surgery but does not say what - Alcohol/Substance Use Hx Alcohol Use: No History of Substance Use: reports: Heroin ("many years ago") - Smoking History Smoking history: Never smoked Have you smoked in the past 12 months: No - Social History Usual Living Arrangement: With Spouse ADL: Independent Occupation: unemployed History of Recent Travel: No Home Medications - Allergies Allergies/Adverse Reactions: Allergies Allergy/AdvReac Type Severity Reaction Status Date / Time No Known Allergies Allergy Verified 12/16/17 11:59 - Home Medications Home Medications: Ambulatory Orders Verapamil HCl [Verapamil ER] 240 mg PO DAILY 08/02/15 Azithromycin [Zithromax -] 250 mg PO UTDICT #6 tab 03/10/16 Ledipasvir/Sofosbuvir [Harvoni 90-400 mg Tablet] 1 each PO DAILY 03/10/16 levoFLOXacin [Levaquin -] 500 mg PO DAILY #7 tablet 07/28/16 Emtricitab/Rilpiviri/Tenof Ala [Odefsey Tablet] 1 each PO DAILY 12/17/17 Family Disease History - Family Disease History Family Disease History: CA: Mother (bone), Other: Father (unknown medical problems) Vital Signs: Vital Signs Temperature 97.6 F 12/20/17 06:00 Pulse Rate 80 12/20/17 08:00 Respiratory Rate 14 12/20/17 08:00 Blood Pressure 137/49 12/20/17 08:05 O2 Sat by Pulse Oximetry (%) 97 12/20/17 08:12 Constitutional: Yes: No Distress Respiratory: Yes: Other (minimal diminished BS at bases) Gastrointestinal: Yes: WNL Cardiovascular: Yes: Regular Rate and Rhythm JVD: No Carotid Bruit: No Heart Sounds: Yes: S1, S2 Murmur: Yes: Systolic Murmur (3/6 HSM apex) Edema: No - Other Data Labs, Other Data: CBC, BMP 12/20/17 05:55 12/20/17 05:55 INR, PTT INR 2.19 (0.82-1.09) H 12/19/17 20:30 Troponin, BNP 12/19/17 12/19/17 12/20/17 20:00 20:30 00:30 Troponin I Cancelled 0.23 H D 0.22 H 12/20/17 05:55 Troponin I 0.22 H Troponin, BNP 12/19/17 12/19/17 12/20/17 20:00 20:30 00:30 Troponin I Cancelled 0.23 H D 0.22 H 12/20/17 05:55 Troponin I 0.22 H Imaging - Results Chest X-ray: Report Reviewed EKG: Image Reviewed Problem List - Problems (1) Atrial fibrillation Code(s): I48.91 - UNSPECIFIED ATRIAL FIBRILLATION Assessment/Plan Mr. Wagner is a 57 year old male with a pmhx of asthma, htn, cirrhosis, IVDU, ? TB, h/o pleural effusion s/p chest tube in 2005 who presents with hemoptysis for [address] chest with liver cirrhosis, spleenomegaly, and extensive upper abdominal varices along with b/l pleural effusions. Echocardiogram with severe global LV hypokinesis. EKG with afib which is now converted back to sinus. Developed worsening sob yesterday in the setting of AI and minimal urine output. Was started on dobutamine and vasopressin and with improvement in urine output and sob. -Patient with systolic CHF on echocardiogram. SOB due to volume overload in setting of XUAN/oliguria. Possibly related to hepatorenal. Seen to have severely reduced LVEF on echo. Physical exam seems to be improved from volume standpoint and putting out good urine on dobutamine/lasix drip. Would continue for now. LE with no edema and warm with good perfusion. Octreotide/vasopressin as per renal team. Renal monitoring to see if needs dialysis -Afib- currently in sinus rhythm. Anticoagulation currently on hold as per primary team given risk of bleeding in patient with thrombocytopenia, varices, and hemoptysis -ID- AFB's to r/o TB Abx as per ID team.
--- NOTE | 2017-12-20 10:57 | PN ---
Progress Note (short form) - Note Progress Note: Renal follow up for XUAN Pt seen and examined in the ICU awake and alert on Venti mask 50% making urine via nair on Dobutamine and vasopressin gtt on Lasix gtt Vital Signs Temperature 97.6 F 12/20/17 06:00 Pulse Rate 80 12/20/17 08:00 Respiratory Rate 14 12/20/17 08:00 Blood Pressure 137/49 12/20/17 08:05 O2 Sat by Pulse Oximetry (%) 97 12/20/17 10:00 Intake & Output 12/17/17 12/18/17 12/19/17 12/20/17 23:59 23:59 23:59 23:59 Intake Total 20 1300 2363 524.5 Output Total 30 1800 Balance 20 1300 2333 -1275.5 Weight 109.9 kg NAD RRR Course BS soft, obese Abd Trace to 1+ edema in LE CBC, BMP 12/20/17 05:55 12/20/17 05:55 Current Medications Albuterol Sulfate (Ventolin 0.083% Nebulizer Soln -) 1 amp NEB Q4H PRN PRN Reason: SHORT OF BREATH/WHEEZING Octreotide Acetate 1,200 mcg/ (Dextrose) 500 mls @ 20.83 mls/hr IVPB TITR KAREN; 50 MCG/HR PRN Reason: Protocol Last Admin: 12/19/17 13:31 Dose: 20.83 mls/hr Piperacillin Sod/Tazobactam (Sod 2.25 gm/ Dextrose) 50 mls @ 100 mls/hr IVPB Q8H-IV KAREN Last Admin: 12/20/17 10:36 Dose: 100 mls/hr Furosemide 100 mg/ Sodium (Chloride) 100 mls @ 5 mls/hr IVPB TITR KAREN; 5 MG/HR PRN Reason: Protocol Last Admin: 12/20/17 03:07 Dose: 5 mg/hr, 5 mls/hr Dobutamine HCl/Dextrose (Dobutamine 250 Mg/D5w -) 250,000 mcg in 250 mls @ 66.678 mls/hr IV TITR KAREN PRN Reason: 10 MCG/KG/MIN Last Admin: 12/20/17 08:05 Dose: 10 mcg/kg/min, 66.678 mls/hr Vasopressin 50 units/ Sodium (Chloride) 100 mls @ 4.8 mls/hr IVPB TITR KAREN PRN Reason: 2.4 UNITS/HR Last Admin: 12/20/17 06:42 Dose: 2.4 units/hr, 4.8 mls/hr Lactulose (Cephulac (Oral Use)) 20 gm PO TID [facility] Last Admin: 12/20/17 06:39 Dose: 20 gm Methylprednisolone Sodium Succinate (Solu-Medrol -) 40 mg IVPUSH BID [facility] Last Admin: 12/20/17 10:36 Dose: 40 mg Pantoprazole Sodium (Protonix Iv) 40 mg IVPUSH DAILY [facility] Last Admin: 12/20/17 10:36 Dose: 40 mg 57 year old gentleman with PMhx of [place], Pulmonary Tb s/p tx who presented with hemoptysis and developed XUAN. #Acute Renal Failure Differential includes intravascular volume depletion vs. HRS type 1 vs. CRS vs. ATN vs. Pulmonary Renal syndrome ([place] vs. Vasculitis) pt is now non-oliguric on Bolous Lasix + Lasix gtt on Dobutamine and vasopressin gtt Serologic studies collected, not yet resulted will defer dialysis at this time given clinical improvement with iotrops and diuretics will start Alumin IV, Midodrine PO Q8h can d/c vasopressin repeat bmp later today keep MAP > 65 if any of the serologic studies are positive can consider renal biopsy or empiric steroids thank you Will follow Osman Reid DO
[2017-12-20 11:00] LABS: ACTIVATED PTT 41.2 SECONDS (26.9-34.4)
[2017-12-20 11:07] LABS: PROTHROMBIN TIME (PATIENT) 29.6 SEC (9.98-11.88)
[2017-12-20 11:08] LABS: INR 2.62 (0.82-1.09)
--- NOTE | 2017-12-20 12:36 | PN ---
Teaching Attending Note Name of Resident: Nikki Monsivais ATTENDING PHYSICIAN STATEMENT I saw and evaluated the patient. I reviewed the resident's note and discussed the case with the resident. I agree with the resident's findings and plan as documented. SUBJECTIVE: Pt seen and examined in the ICU. Feeling better and better urine output on dobutamine, vasopressin, octreotide lasix gtts. Still some hemoptysis this AM. Saturating well on 50% ventimask. OBJECTIVE: Last Vital Signs Temp Pulse Resp BP Pulse Ox 98.8 F 83 12 129/62 97 12/20/17 10:00 12/20/17 10:00 12/20/17 10:00 12/20/17 11:21 12/20/17 10:00 Intake & Output 12/17/17 12/18/17 12/19/17 12/20/17 23:59 23:59 23:59 23:59 Intake Total 20 1300 2363 524.5 Output Total 30 3500 Balance 20 1300 2333 -2975.5 Weight 109.9 kg Gen: somnolent but arousable Heart: RRR Lung: scattered rhonchi Abd: soft, nontender Ext: no edema CBC, BMP 12/20/17 05:55 12/20/17 05:55 Active Medications Albumin Human (Albumin Human 25%) 25 gm IVPB Q6H KAREN Stop: 12/21/17 06:01 Albuterol Sulfate (Ventolin 0.083% Nebulizer Soln -) 1 amp NEB Q4H PRN PRN Reason: SHORT OF BREATH/WHEEZING Octreotide Acetate 1,200 mcg/ (Dextrose) 500 mls @ 20.83 mls/hr IVPB TITR KAREN; 50 MCG/HR PRN Reason: Protocol Last Admin: 12/19/17 13:31 Dose: 20.83 mls/hr Piperacillin Sod/Tazobactam (Sod 2.25 gm/ Dextrose) 50 mls @ 100 mls/hr IVPB Q8H-IV KAREN Last Admin: 12/20/17 10:36 Dose: 100 mls/hr Furosemide 100 mg/ Sodium (Chloride) 100 mls @ 5 mls/hr IVPB TITR KAREN; 5 MG/HR PRN Reason: Protocol Last Admin: 12/20/17 03:07 Dose: 5 mg/hr, 5 mls/hr Dobutamine HCl/Dextrose (Dobutamine 250 Mg/D5w -) 250,000 mcg in 250 mls @ 66.678 mls/hr IV TITR KAREN PRN Reason: 10 MCG/KG/MIN Last Admin: 12/20/17 12:04 Dose: 10 mcg/kg/min, 66.678 mls/hr Vasopressin 50 units/ Sodium (Chloride) 100 mls @ 4.8 mls/hr IVPB TITR KAREN PRN Reason: 2.4 UNITS/HR Last Infusion: 12/20/17 11:21 Dose: 1.5 units/hr, 3 mls/hr Lactulose (Cephulac (Oral Use)) 20 gm PO TID KAREN Last Admin: 12/20/17 06:39 Dose: 20 gm Midodrine (Proamatine -) 10 mg PO TID-MID KAREN Pantoprazole Sodium (Protonix Iv) 40 mg IVPUSH DAILY [facility] Last Admin: 12/20/17 10:36 Dose: 40 mg ASSESSMENT AND PLAN: Acute on Chronic Systolic/Diastolic Heart Failure Atrial Fibrillation with RVR Acute Kidney Injury r/o Cardiorenal Syndrome r/o Hepatorenal Syndrome although less likely the acute issue currently Hemoptysis r/o Pneumonia HIV Hep C Liver Cirrhosis Coagulopathy Thromobocytopenia Lactic Acidosis +Troponins likely Demand Ischemia - pt clinically improving, will continue current management with dobutamine, lasix gtts - started on midodrine, taper off vasopressin gtt, can likely d/c octreotide gtt in AM - monitor urine output, creatinine - daily weights, I/Os - continue empiric antibiotics - f/u cultures - quantify hemoptysis - trend lactate, likely impaired clearance from liver dysfunction - lactulose - monitor ammonia level - PO per GI - taper FiO2 to keep SpO2 >90% - can d/c medrol - inhaled bronchodilators as needed - DVT/GI prophylaxis - continue ICU monitoring critical care time spent in reviewing chart, evaluating patient and formulating plan 35 min
[2017-12-20] MEDS: ALBUMIN HUMAN 25% 12.5 GM/50 ML VIAL IVPB SCH ×2 (13:02→18:50)
--- NOTE | 2017-12-20 13:10 | PN ---
Progress Note, Physician History of Present Illness: Chart reviewed. Events noted. No signs of overt GI bleeding. - Current Medication List Current Medications: Active Medications Albumin Human (Albumin Human 25%) 25 gm IVPB Q6H KAREN Stop: 12/21/17 06:01 Albuterol Sulfate (Ventolin 0.083% Nebulizer Soln -) 1 amp NEB Q4H PRN PRN Reason: SHORT OF BREATH/WHEEZING Octreotide Acetate 1,200 mcg/ (Dextrose) 500 mls @ 20.83 mls/hr IVPB TITR KAREN; 50 MCG/HR PRN Reason: Protocol Last Admin: 12/19/17 13:31 Dose: 20.83 mls/hr Piperacillin Sod/Tazobactam (Sod 2.25 gm/ Dextrose) 50 mls @ 100 mls/hr IVPB Q8H-IV KAREN Last Admin: 12/20/17 10:36 Dose: 100 mls/hr Furosemide 100 mg/ Sodium (Chloride) 100 mls @ 5 mls/hr IVPB TITR KAREN; 5 MG/HR PRN Reason: Protocol Last Admin: 12/20/17 03:07 Dose: 5 mg/hr, 5 mls/hr Dobutamine HCl/Dextrose (Dobutamine 250 Mg/D5w -) 250,000 mcg in 250 mls @ 66.678 mls/hr IV TITR KAREN PRN Reason: 10 MCG/KG/MIN Last Admin: 12/20/17 12:04 Dose: 10 mcg/kg/min, 66.678 mls/hr Vasopressin 50 units/ Sodium (Chloride) 100 mls @ 4.8 mls/hr IVPB TITR KAREN PRN Reason: 2.4 UNITS/HR Last Infusion: 12/20/17 11:21 Dose: 1.5 units/hr, 3 mls/hr Lactulose (Cephulac (Oral Use)) 20 gm PO TID KAREN Last Admin: 12/20/17 06:39 Dose: 20 gm Midodrine (Proamatine -) 10 mg PO TID-MID KAREN Pantoprazole Sodium (Protonix Iv) 40 mg IVPUSH DAILY KAREN Last Admin: 12/20/17 10:36 Dose: 40 mg - Objective Vital Signs: Vital Signs Temperature 98.8 F 12/20/17 10:00 Pulse Rate 83 12/20/17 10:00 Respiratory Rate 12 12/20/17 10:00 Blood Pressure 129/62 12/20/17 11:21 O2 Sat by Pulse Oximetry (%) 97 12/20/17 10:00 Constitutional: Yes: Calm Eyes: Yes: Conjunctiva Clear Gastrointestinal: No: Ascites, Distention, Melena, Rectal Bleeding, Tenderness, Vomiting Labs: CBC, BMP 12/20/17 05:55 12/20/17 05:55 INR, PTT INR 2.62 (0.82-1.09) H 12/20/17 09:20 Laboratory Results - last 24 hr 12/19/17 12/19/17 12/19/17 06:40 14:10 14:45 WBC RBC Hgb Hct MCV MCH MCHC RDW Plt Count MPV PT with INR INR PTT (Actin FS) Puncture Site Right radial ABG pH 7.32 L ABG pCO2 at Pt Temp 27.5 L ABG pO2 at Pt Temp 74.6 L ABG HCO3 13.8 L* ABG O2 Sat (Measured) 93.0 ABG O2 Content 16.3 ABG Base Excess -10.6 L* Abdullahi Test Positive O2 Delivery Device Room air Oxygen Flow Rate 21% Mechanical Rate No PEEP 0.0 Sodium Potassium Chloride Carbon Dioxide Anion Gap BUN Creatinine Creat Clearance w eGFR Random Glucose Lactic Acid Calcium Phosphorus Magnesium Total Bilirubin Direct Bilirubin AST ALT Alkaline Phosphatase Troponin I Total Protein Albumin Free T3 1.6 L Total T3 70.00 L Urine Color Urine Appearance Urine pH Ur Specific Raymond Urine Protein Urine Glucose (UA) Urine Ketones Urine Blood Urine Nitrite Urine Bilirubin Urine Urobilinogen Ur Leukocyte Esterase Urine WBC (Auto) Urine RBC (Auto) Ur Epithelial Cells Calcium Oxalate Crystal Urine Bacteria Urine Mucus Urine Eosinophils Cancelled 12/19/17 12/19/17 12/19/17 14:45 17:00 17:00 WBC RBC Hgb Hct MCV MCH MCHC RDW Plt Count MPV PT with INR INR PTT (Actin FS) Puncture Site ABG pH ABG pCO2 at Pt Temp ABG pO2 at Pt Temp ABG HCO3 ABG O2 Sat (Measured) ABG O2 Content ABG Base Excess Abdullahi Test O2 Delivery Device Oxygen Flow Rate Mechanical Rate PEEP Sodium 134 L Potassium 4.8 Chloride 104 Carbon Dioxide 15 L Anion Gap 15 BUN 66 H D Creatinine 5.4 H Creat Clearance w eGFR Random Glucose 144 H Lactic Acid 6.7 H* Calcium 7.5 L Phosphorus 8.5 H Magnesium 2.6 H Total Bilirubin Direct Bilirubin AST ALT Alkaline Phosphatase Troponin I Total Protein Albumin Free T3 Total T3 Urine Color Shelly Urine Appearance Cloudy Urine pH 5.0 D Ur Specific Raymond 1.024 Urine Protein 1+ H Urine Glucose (UA) Negative Urine Ketones Negative Urine Blood Negative Urine Nitrite Negative Urine Bilirubin Negative Urine Urobilinogen Negative Ur Leukocyte Esterase Negative Urine WBC (Auto) 10 Urine RBC (Auto) 3 Ur Epithelial Cells Rare Calcium Oxalate Crystal Rare Urine Bacteria Rare Urine Mucus Rare Urine Eosinophils 12/19/17 12/19/17 12/19/17 20:00 20:30 20:30 WBC RBC Hgb Hct MCV MCH MCHC RDW Plt Count MPV PT with INR 24.70 H INR 2.19 H PTT (Actin FS) Puncture Site ABG pH ABG pCO2 at Pt Temp ABG pO2 at Pt Temp ABG HCO3 ABG O2 Sat (Measured) ABG O2 Content ABG Base Excess Abdullahi Test O2 Delivery Device Oxygen Flow Rate Mechanical Rate PEEP Sodium 134 L Potassium 4.5 Chloride 103 Carbon Dioxide 12 L Anion Gap 19 H BUN 68 H Creatinine 6.1 H Creat Clearance w eGFR Random Glucose 141 H Lactic Acid Calcium 7.5 L Phosphorus 9.6 H* Magnesium 2.7 H Total Bilirubin 3.5 H Direct Bilirubin 1.2 H D AST 69 H ALT 67 Alkaline Phosphatase 64 Troponin I Cancelled 0.23 H D Total Protein 7.7 Albumin 3.3 L Free T3 Total T3 Urine Color Urine Appearance Urine pH Ur Specific Raymond Urine Protein Urine Glucose (UA) Urine Ketones Urine Blood Urine Nitrite Urine Bilirubin Urine Urobilinogen Ur Leukocyte Esterase Urine WBC (Auto) Urine RBC (Auto) Ur Epithelial Cells Calcium Oxalate Crystal Urine Bacteria Urine Mucus Urine Eosinophils 12/19/17 12/19/17 12/20/17 20:30 20:30 00:30 WBC RBC Hgb Hct MCV MCH MCHC RDW Plt Count MPV PT with INR INR PTT (Actin FS) Puncture Site ABG pH ABG pCO2 at Pt Temp ABG pO2 at Pt Temp ABG HCO3 ABG O2 Sat (Measured) ABG O2 Content ABG Base Excess Abdullahi Test O2 Delivery Device Oxygen Flow Rate Mechanical Rate PEEP Sodium Potassium Chloride Carbon Dioxide Anion Gap BUN Creatinine Creat Clearance w eGFR Random Glucose Lactic Acid 10.4 H* Calcium Phosphorus Cancelled Magnesium Cancelled Total Bilirubin Cancelled Direct Bilirubin Cancelled AST Cancelled ALT Cancelled Alkaline Phosphatase Cancelled Troponin I 0.22 H Total Protein Cancelled Albumin Cancelled Free T3 Total T3 Urine Color Urine Appearance Urine pH Ur Specific Raymond Urine Protein Urine Glucose (UA) Urine Ketones Urine Blood Urine Nitrite Urine Bilirubin Urine Urobilinogen Ur Leukocyte Esterase Urine WBC (Auto) Urine RBC (Auto) Ur Epithelial Cells Calcium Oxalate Crystal Urine Bacteria Urine Mucus Urine Eosinophils 12/20/17 12/20/17 12/20/17 05:55 05:55 05:55 WBC 6.2 D RBC 3.16 L Hgb 11.7 D Hct 34.3 L D MCV 108.5 H MCH 36.9 H MCHC 34.0 RDW 15.5 Plt Count 51 L D MPV 10.4 PT with INR INR PTT (Actin FS) Puncture Site ABG pH ABG pCO2 at Pt Temp ABG pO2 at Pt Temp ABG HCO3 ABG O2 Sat (Measured) ABG O2 Content ABG Base Excess Abdullahi Test O2 Delivery Device Oxygen Flow Rate Mechanical Rate PEEP Sodium 133 L Potassium 4.7 Chloride 102 Carbon Dioxide 18 L D Anion Gap 13 BUN 78 H Creatinine 5.5 H Creat Clearance w eGFR 10.81 Random Glucose 158 H Lactic Acid 5.7 H* Calcium 7.0 L Phosphorus 8.6 H Magnesium 2.5 H Total Bilirubin 3.1 H Direct Bilirubin AST 111 H D ALT 86 H D Alkaline Phosphatase 49 D Troponin I Total Protein 6.6 Albumin 2.7 L Free T3 Total T3 Urine Color Urine Appearance Urine pH Ur Specific Raymond Urine Protein Urine Glucose (UA) Urine Ketones Urine Blood Urine Nitrite Urine Bilirubin Urine Urobilinogen Ur Leukocyte Esterase Urine WBC (Auto) Urine RBC (Auto) Ur Epithelial Cells Calcium Oxalate Crystal Urine Bacteria Urine Mucus Urine Eosinophils 12/20/17 12/20/17 05:55 09:20 WBC RBC Hgb Hct MCV MCH MCHC RDW Plt Count MPV PT with INR 29.60 H INR 2.62 H PTT (Actin FS) 41.2 H Puncture Site ABG pH ABG pCO2 at Pt Temp ABG pO2 at Pt Temp ABG HCO3 ABG O2 Sat (Measured) ABG O2 Content ABG Base Excess Abdullahi Test O2 Delivery Device Oxygen Flow Rate Mechanical Rate PEEP Sodium Potassium Chloride Carbon Dioxide Anion Gap BUN Creatinine Creat Clearance w eGFR Random Glucose Lactic Acid Calcium Phosphorus Magnesium Total Bilirubin Direct Bilirubin AST ALT Alkaline Phosphatase Troponin I 0.22 H Total Protein Albumin Free T3 Total T3 Urine Color Urine Appearance Urine pH Ur Specific Raymond Urine Protein Urine Glucose (UA) Urine Ketones Urine Blood Urine Nitrite Urine Bilirubin Urine Urobilinogen Ur Leukocyte Esterase Urine WBC (Auto) Urine RBC (Auto) Ur Epithelial Cells Calcium Oxalate Crystal Urine Bacteria Urine Mucus Urine Eosinophils - ....Imaging Cat Scan: Pending Problem List - Problems (1) Abdominal pain Code(s): R10.9 - UNSPECIFIED ABDOMINAL PAIN Qualifiers: Abdominal location: generalized Qualified Code(s): R10.84 - Generalized abdominal pain (2) Acute kidney failure Code(s): N17.9 - ACUTE KIDNEY FAILURE, UNSPECIFIED Qualifiers: Acute renal failure type: unspecified Qualified Code(s): N17.9 - Acute kidney failure, unspecified (3) Advanced cirrhosis of liver Code(s): K74.60 - UNSPECIFIED CIRRHOSIS OF LIVER (4) Calculus of gallbladder without cholecystitis without obstruction Code(s): K80.20 - CALCULUS OF GALLBLADDER W/O CHOLECYSTITIS W/O OBSTRUCTION (5) Coagulopathy Code(s): D68.9 - COAGULATION DEFECT, UNSPECIFIED (6) Hemoptysis Code(s): R04.2 - HEMOPTYSIS (7) Pneumonia Code(s): J18.9 - PNEUMONIA, UNSPECIFIED ORGANISM Qualifiers: Pneumonia type: due to unspecified organism Laterality: left Lung location: lower lobe of lung Qualified Code(s): J18.1 - Lobar pneumonia, unspecified organism (8) Portal hypertension Code(s): K76.6 - PORTAL HYPERTENSION (9) Hepatitis B Code(s): B19.10 - UNSPECIFIED VIRAL HEPATITIS B WITHOUT HEPATIC COMA (10) Hepatitis C Code(s): B19.20 - UNSPECIFIED VIRAL HEPATITIS C WITHOUT HEPATIC COMA Qualifiers: Viral hepatitis chronicity: chronic Hepatic coma status: without hepatic coma Qualified Code(s): B18.2 - Chronic viral hepatitis C Assessment/Plan Multifactorial renal insificiency Liver cirrhosis with PHTN Agree with PPI, lactulose, midorine and albumin Avoid IVF at high rate as it may result in worsening of PHTN and may precipitate variceal bleeding Close monitoring for signs of GI bleeding
[2017-12-20 14:13] LABS: MYOGLOBIN SERUM 266 ng/mL (28-72)
[2017-12-20] MEDS: MIDODRINE HCL 5 MG TABLET PO SCH ×2 (14:29→20:53)
[2017-12-20] MEDS: OCTREOTIDE ACETATE 1,200 MCG in DEXTROSE 5%-WATER - 488 ML IVPB SCH (14:37)
[2017-12-20] MEDS ORDERED: FUROSEMIDE 40 MG/4 ML INJECTABLE VIAL ONE (20:43)
[2017-12-20] MEDS ORDERED: ACETAMINOPHEN 1000 MG/100 ML VIAL (NON FORMULARY) IVPB ONE (23:01)
[2017-12-21] MEDS: ALBUMIN HUMAN 25% 12.5 GM/50 ML VIAL IVPB SCH ×2 (00:08→05:05)
[2017-12-21 00:10] LABS: COMPLEMENT TOTAL(CH50) 40 U/mL (42-60)
[2017-12-21] MEDS: PIPERACILLIN/TAZOB 2.25 GM 2.25 GM in DEXTROSE 5%-WATER - 50 ML IVPB SCH (01:21)
[2017-12-21] MEDS: DOBUTAMINE 250 MG/D5W - 250,000 MCG/250 ML INFUS.BAG IV SCH ×4 (01:23→19:52)
[2017-12-21] MEDS: LACTULOSE 20 GM/30 ML UDC (FOR ORAL USE ONLY) PO SCH ×3 (05:07→21:46)
[2017-12-21] MEDS: FUROSEMIDE INJECTION 100 MG in SODIUM CHLORIDE 90 ML IVPB SCH (05:09)
[2017-12-21 06:34] LABS: HEMATOCRIT 28.5 % (35.4-49); HEMOGLOBIN 9.8 GM/dL (11.7-16.9); MCHC 34.4 g/dl (32.0-35.9); MEAN CELL VOLUME 107.5 fl (80-96); MEAN PLT VOLUME 10.4 fl (7.5-11.1); RBC 2.65 M/mm3 (4.00-5.60); RDW 15.2 % (11.9-15.9); WHITE BLOOD COUNT 3.3 K/mm3 (4.0-10.0)
[2017-12-21 06:47] LABS: ALBUMIN 3.3 g/dl (3.4-5.0); BLOOD UREA NITROGEN 74 mg/dL (7-18); CALCIUM 7.8 mg/dL (8.5-10.1); CHLORIDE 99 mmol/L (98-107); POTASSIUM 3.5 mmol/L (3.5-5.1); SGOT/AST 107 U/L (15-37); SGPT/ALT 84 U/L (12-78); SODIUM 135 mmol/L (136-145)
[2017-12-21 06:52] LABS: ALK PHOS 35 U/L (45-117); ANION GAP 8 (8-16); BILIRUBIN,TOTAL 4.1 mg/dL (0.2-1.0); CO2 28 mmol/L (21-32); GLUCOSE,RANDOM 152 mg/dL (74-106); TOT PROT 6.5 g/dl (6.4-8.2)
--- NOTE | 2017-12-21 07:23 | PN ---
Progress Note, Physician Chief Complaint: ID ICU follow up for this 57 year old male with HIV infection for years and liver cirrhosis. Still complains of chest tightness and couphng up bloody sputum which I saw this am. He is on Zosyn NO fevers chills night sweats. He notes that his hemoptysis was rather sudden last week. - Current Medication List Current Medications: Active Medications Albuterol Sulfate (Ventolin 0.083% Nebulizer Soln -) 1 amp NEB Q4H PRN PRN Reason: SHORT OF BREATH/WHEEZING Octreotide Acetate 1,200 mcg/ (Dextrose) 500 mls @ 20.83 mls/hr IVPB TITR KAREN; 50 MCG/HR PRN Reason: Protocol Last Admin: 12/20/17 14:37 Dose: 20.83 mls/hr Piperacillin Sod/Tazobactam (Sod 2.25 gm/ Dextrose) 50 mls @ 100 mls/hr IVPB Q8H-IV KAREN Last Admin: 12/21/17 01:21 Dose: 100 mls/hr Furosemide 100 mg/ Sodium (Chloride) 100 mls @ 5 mls/hr IVPB TITR KAREN; 5 MG/HR PRN Reason: Protocol Last Admin: 12/21/17 05:09 Dose: Not Given Dobutamine HCl/Dextrose (Dobutamine 250 Mg/D5w -) 250,000 mcg in 250 mls @ 66.678 mls/hr IV TITR KAREN PRN Reason: 10 MCG/KG/MIN Last Admin: 12/21/17 05:07 Dose: 10 mcg/kg/min, 66.678 mls/hr Vasopressin 50 units/ Sodium (Chloride) 100 mls @ 4.8 mls/hr IVPB TITR KAREN PRN Reason: 2.4 UNITS/HR Last Infusion: 12/20/17 13:10 Dose: 0 units/hr, 0 mls/hr Lactulose (Cephulac (Oral Use)) 20 gm PO TID KAREN Last Admin: 12/21/17 05:07 Dose: 20 gm Midodrine (Proamatine -) 10 mg PO TID-MID KAREN Last Admin: 12/20/17 20:53 Dose: 10 mg Pantoprazole Sodium (Protonix Iv) 40 mg IVPUSH DAILY KAREN Last Admin: 12/20/17 10:36 Dose: 40 mg - Objective Vital Signs: Vital Signs Temperature 99 F 12/21/17 06:00 Pulse Rate 77 12/21/17 06:00 Respiratory Rate 14 12/21/17 06:00 Blood Pressure 135/63 12/21/17 06:00 O2 Sat by Pulse Oximetry (%) 100 12/20/17 21:28 Constitutional: Yes: Mild Distress Neck: Yes: WNL, Supple Cardiovascular: Yes: Regular Rate and Rhythm, S1, S2. No: Murmur Respiratory: Yes: WNL, Regular, CTA Bilaterally Gastrointestinal: Yes: WNL, Soft. No: Tenderness Edema: No Labs: CBC, BMP 12/21/17 05:25 INR, PTT INR 2.62 (0.82-1.09) H 12/20/17 09:20 Assessment/Plan Microbiology 12/17/17 15:20 Sputum - Expectorated Direct Acid Fast Bacilli Smear - Final 12/17/17 00:00 Sputum - Expectorated Direct Acid Fast Bacilli Smear - Final 12/17/17 00:00 Sputum - Expectorated Direct Acid Fast Bacilli Smear - Final 12/16/17 17:10 Urine - Urine Clean Catch Urine Culture - Final Enterococcus Faecalis 12/17/17 15:20 Sputum - Expectorated AFB Smear Concentration - Preliminary 12/17/17 15:20 Sputum - Expectorated Mycobacterial Culture - Preliminary 12/17/17 00:00 Sputum - Expectorated AFB Smear Concentration - Preliminary 12/17/17 00:00 Sputum - Expectorated Mycobacterial Culture - Preliminary 12/17/17 00:00 Sputum - Expectorated AFB Smear Concentration - Preliminary 12/17/17 00:00 Sputum - Expectorated Mycobacterial Culture - Preliminary Laboratory Tests 12/17/17 12/19/17 12/20/17 09:45 14:45 05:55 WBC 6.2 D Hgb 11.7 D Hct Plt Count 51 L D INR BUN Creatinine Creat Clearance w eGFR Random Glucose Total Bilirubin AST ALT Alkaline Phosphatase Albumin Urine WBC (Auto) 10 Urine RBC (Auto) 3 Hepatitis C Antibody TB Test (QFT) Positive H 12/20/17 12/20/17 12/21/17 05:55 09:20 05:25 WBC Pending Hgb Hct Pending Plt Count INR 2.62 H BUN Creatinine Creat Clearance w eGFR Random Glucose Total Bilirubin AST ALT Alkaline Phosphatase Albumin Urine WBC (Auto) Urine RBC (Auto) Hepatitis C Antibody >11.0 H TB Test (QFT) 12/21/17 05:25 WBC Hgb Hct Plt Count INR BUN 74 H Creatinine 3.0 H D Creat Clearance w eGFR 21.75 Random Glucose 152 H Total Bilirubin 4.1 H D AST 107 H ALT 84 H Alkaline Phosphatase 35 L D Albumin 3.3 L D Urine WBC (Auto) Urine RBC (Auto) Hepatitis C Antibody TB Test (QFT) Assessment Congestive heart failure ? Cardiomyopathy Hemoptysis- I doubt active tuberculosis but agree should be ruled out with sputums include NAAT M TB Pneumonia a possibility Acute kidney injury ( ? on chronic) secondary to cardiac failure HIV infection currently off medications Hepatic cirrhosis Hep C Coagulopathy Positive PPD quant gold history Plan Send sputum c/s and SCOOTER M TB Continue Zosyn for now unless platelets worsen and or bleeding continues HIV meds on hold for now Get T cells Critical care time spent 38 minutes
[2017-12-21 07:38] LABS: PLATELET COUNT 34 K/MM3 (134-434)
[2017-12-21 08:47] LABS: INR 2.71 (0.82-1.09); PROTHROMBIN TIME (PATIENT) 30.6 SEC (9.98-11.88)
--- NOTE | 2017-12-21 09:54 | PN ---
Progress Note, Physician History of Present Illness: Patient continues to improve. No chest pain. Continues to make urine. UOP +8, 000cc from yest to today Off vasopressin. Currently on dobutamine 10. Received albumin x4 yesterday. Feels hungry - Current Medication List Current Medications: Active Medications Albuterol Sulfate (Ventolin 0.083% Nebulizer Soln -) 1 amp NEB Q4H PRN PRN Reason: SHORT OF BREATH/WHEEZING Octreotide Acetate 1,200 mcg/ (Dextrose) 500 mls @ 20.83 mls/hr IVPB TITR KAREN; 50 MCG/HR PRN Reason: Protocol Last Admin: 12/20/17 14:37 Dose: 20.83 mls/hr Furosemide 100 mg/ Sodium (Chloride) 100 mls @ 5 mls/hr IVPB TITR KAREN; 5 MG/HR PRN Reason: Protocol Last Admin: 12/21/17 05:09 Dose: Not Given Dobutamine HCl/Dextrose (Dobutamine 250 Mg/D5w -) 250,000 mcg in 250 mls @ 66.678 mls/hr IV TITR KAREN PRN Reason: 10 MCG/KG/MIN Last Admin: 12/21/17 05:07 Dose: 10 mcg/kg/min, 66.678 mls/hr Vasopressin 50 units/ Sodium (Chloride) 100 mls @ 4.8 mls/hr IVPB TITR KAREN PRN Reason: 2.4 UNITS/HR Last Infusion: 12/20/17 13:10 Dose: 0 units/hr, 0 mls/hr CEFTRIAXONE 1 G/50 ML PREMIX (Ceftriaxone 1 Gm-D5w Bag) 50 mls @ 200 mls/hr IVPB DAILY KAREN Lactulose (Cephulac (Oral Use)) 20 gm PO TID KAREN Last Admin: 12/21/17 05:07 Dose: 20 gm Midodrine (Proamatine -) 10 mg PO TID-MID KAREN Last Admin: 12/20/17 20:53 Dose: 10 mg Pantoprazole Sodium (Protonix Iv) 40 mg IVPUSH DAILY KAREN Last Admin: 12/20/17 10:36 Dose: 40 mg - Objective Vital Signs: Vital Signs Temperature 99 F 12/21/17 06:00 Pulse Rate 75 12/21/17 08:00 Respiratory Rate 11 L 12/21/17 08:00 Blood Pressure 150/63 12/21/17 08:00 O2 Sat by Pulse Oximetry (%) 100 12/21/17 09:00 Additional Findings/Remarks: GEN: AAOx3, NAD, Lying comfortably HEENT: PERRLA, EOMi CV: S1, S2, RRR, 3/6 systolic murmur LUNG: CTABL ABD: Soft, NT, ND MSK: No edema, no erythema NEURO: CN 2-12 intact. Labs: CBC, BMP 12/21/17 05:25 12/21/17 05:25 INR, PTT INR 2.71 (0.82-1.09) H 12/21/17 05:25 Assessment/Plan 57yo with PMHx of Cirrhosis and TB (treated x1) presents with gross hemoptysis. In ICU after RR event. Was given IVF resuscitation leading to likely CHF exacerbation. # Renal: Acute Kidney Injury -- In light of echo findings of severe LV dysfunction, most likely strong cardiorenal component. Other ddx include pulmonary renal. -- Still on Dobutamine and Lasix ggt, outputting well, kidney function markedly improved. -- Finished albumin x4, will continue midrodine for hepatorenal component # Pulm: Hemoptysis, Hx of TB -- Hemoptysis continues to improve. Unlikely active TB (3 prelim neg AFB). Could be 2/2 PNA vs pulmonary-renal syndrome. -- Decreased O2 requirement, now placed on NC 3L -- GBM antibodies sent, will follow. # Heme: Thrombocytopenia, Coagulopathy -- Likely combination of hepatic dysfunction and possible Zosyn sfx -- Will give 1u PLT and d/c Zosyn -- Add vitamin K 5mg daily for coagulopathy # GI: Hep C (untreated), Cirrhosis w/ portal HTN, Gallstones -- Liver function continues to worsen, as noted by worsening INR and PLT. Will continue octreotide and midrodine. -- Consider referral to liver center # ID: Possible PNA, Hx of TB, HIV -- Some LLL on Chest CT. Switched from Zosyn to Rocephin 1g daily -- No WBC, no fever. -- Hold HIV tx for now # CV: Hx of HTN, Elevated troponins -- On verapamil 240 daily # FEN/PPx -- Switched to full liquids w/ 1.5L fluid restriction -- SCDs, GI ppx w/ protonix Nikki Monsivais MD PGY1 ICU Medicine
[2017-12-21] MEDS ORDERED: PT OWN MED DRAWER 7, Y5N ONE ×3 (10:08→19:48)
[2017-12-21] MEDS: MIDODRINE HCL 5 MG TABLET PO SCH ×3 (10:28→19:52)
[2017-12-21] MEDS: CEFTRIAXONE 1 G/50 ML PREMIX 50 ML IVPB SCH (10:30)
[2017-12-21] MEDS: PANTOPRAZOLE SODIUM 40 MG VIAL IVPUSH SCH (10:30)
--- NOTE | 2017-12-21 11:35 | PN ---
Progress Note (short form) - Note Progress Note: Renal follow up for XUAN Pt seen and examined in the ICU awake and alert on NC O2 Vital Signs Temperature 97.6 F 12/20/17 06:00 Pulse Rate 80 12/20/17 08:00 Respiratory Rate 14 12/20/17 08:00 Blood Pressure 137/49 12/20/17 08:05 O2 Sat by Pulse Oximetry (%) 97 12/20/17 10:00 Intake & Output 12/17/17 12/18/17 12/19/17 12/20/17 23:59 23:59 23:59 23:59 Intake Total 20 1300 2363 524.5 Output Total 30 1800 Balance 20 1300 2333 -1275.5 Weight 109.9 kg NAD RRR Course BS soft, obese Abd Trace to 1+ edema in LE CBC, BMP 12/20/17 05:55 12/20/17 05:55 Current Medications Albuterol Sulfate (Ventolin 0.083% Nebulizer Soln -) 1 amp NEB Q4H PRN PRN Reason: SHORT OF BREATH/WHEEZING Octreotide Acetate 1,200 mcg/ (Dextrose) 500 mls @ 20.83 mls/hr IVPB TITR KAREN; 50 MCG/HR PRN Reason: Protocol Last Admin: 12/19/17 13:31 Dose: 20.83 mls/hr Piperacillin Sod/Tazobactam (Sod 2.25 gm/ Dextrose) 50 mls @ 100 mls/hr IVPB Q8H-IV KAREN Last Admin: 12/20/17 10:36 Dose: 100 mls/hr Furosemide 100 mg/ Sodium (Chloride) 100 mls @ 5 mls/hr IVPB TITR KAREN; 5 MG/HR PRN Reason: Protocol Last Admin: 12/20/17 03:07 Dose: 5 mg/hr, 5 mls/hr Dobutamine HCl/Dextrose (Dobutamine 250 Mg/D5w -) 250,000 mcg in 250 mls @ 66.678 mls/hr IV TITR KAREN PRN Reason: 10 MCG/KG/MIN Last Admin: 12/20/17 08:05 Dose: 10 mcg/kg/min, 66.678 mls/hr Vasopressin 50 units/ Sodium (Chloride) 100 mls @ 4.8 mls/hr IVPB TITR KAREN PRN Reason: 2.4 UNITS/HR Last Admin: 12/20/17 06:42 Dose: 2.4 units/hr, 4.8 mls/hr Lactulose (Cephulac (Oral Use)) 20 gm PO TID [facility] Last Admin: 12/20/17 06:39 Dose: 20 gm Methylprednisolone Sodium Succinate (Solu-Medrol -) 40 mg IVPUSH BID [facility] Last Admin: 12/20/17 10:36 Dose: 40 mg Pantoprazole Sodium (Protonix Iv) 40 mg IVPUSH DAILY [facility] Last Admin: 12/20/17 10:36 Dose: 40 mg 57 year old gentleman with PMhx of [place], Pulmonary Tb s/p tx who presented with hemoptysis and developed XUAN. #Acute Renal Failure Renal function with improvement in the last 24 hours would continue current management including Lasix gtt, Dobutamine gtt, IV Albumin, Midodrine and Octreotide can d/c nair as pt is having discomfort Repeat BMP this evening CH50 slightly low, C3/C4 added to am labs, remainder of serologic work up yet to be resulted keep MAP > 65 continue fluid restriction no indication for [employer] at this time dose all meds for CrCl less then 15 Osman Reid DO
[2017-12-21] MEDS ORDERED: PHYTONADIONE 5 MG TABLET PO ONE (11:54)
--- NOTE | 2017-12-21 12:25 | PN ---
Teaching Attending Note Name of Resident: Nikki Monsivais ATTENDING PHYSICIAN STATEMENT I saw and evaluated the patient. I reviewed the resident's note and discussed the case with the resident. I agree with the resident's findings and plan as documented. SUBJECTIVE: Pt seen and examined in the ICU. Good urine output yesterday on dobutamine and lasix gtts. Made 7900mL urine. Hemoptysis now dark in color. States breathing is improving. OBJECTIVE: Last Vital Signs Temp Pulse Resp BP Pulse Ox 98.8 F 65 13 130/62 100 12/21/17 10:00 12/21/17 10:00 12/21/17 10:00 12/21/17 10:29 12/21/17 09:00 Intake & Output 12/18/17 12/19/17 12/20/17 12/21/17 23:59 23:59 23:59 23:59 Intake Total 1300 2363 1524.5 1608 Output Total 30 7900 1700 Balance 1300 2333 -6375.5 -92 Weight 109.9 kg 105.318 kg Gen: more alert, awake Heart: RRR Lung: basilar rales Abd: soft, nontender Ext: no edema CBC, BMP 12/21/17 05:25 12/21/17 05:25 Active Medications Albuterol Sulfate (Ventolin 0.083% Nebulizer Soln -) 1 amp NEB Q4H PRN PRN Reason: SHORT OF BREATH/WHEEZING Octreotide Acetate 1,200 mcg/ (Dextrose) 500 mls @ 20.83 mls/hr IVPB TITR KAREN; 50 MCG/HR PRN Reason: Protocol Last Admin: 12/20/17 14:37 Dose: 20.83 mls/hr Furosemide 100 mg/ Sodium (Chloride) 100 mls @ 5 mls/hr IVPB TITR KAREN; 5 MG/HR PRN Reason: Protocol Last Admin: 12/21/17 05:09 Dose: Not Given Dobutamine HCl/Dextrose (Dobutamine 250 Mg/D5w -) 250,000 mcg in 250 mls @ 66.678 mls/hr IV TITR KAREN PRN Reason: 10 MCG/KG/MIN Last Admin: 12/21/17 10:29 Dose: 10 mcg/kg/min, 66.678 mls/hr CEFTRIAXONE 1 G/50 ML PREMIX (Ceftriaxone 1 Gm-D5w Bag) 50 mls @ 200 mls/hr IVPB DAILY [facility] Last Admin: 12/21/17 10:30 Dose: 200 mls/hr Lactulose (Cephulac (Oral Use)) 20 gm PO TID [facility] Last Admin: 12/21/17 05:07 Dose: 20 gm Midodrine (Proamatine -) 10 mg PO TID-MID [facility] Last Admin: 12/21/17 10:28 Dose: 10 mg Pantoprazole Sodium (Protonix Iv) 40 mg IVPUSH DAILY [facility] Last Admin: 12/21/17 10:30 Dose: 40 mg Phytonadione (Mephyton -) 5 mg PO DAILY ONE Stop: 12/21/17 11:55 ASSESSMENT AND PLAN: Acute on Chronic Systolic/Diastolic Heart Failure Atrial Fibrillation with RVR Acute Kidney Injury r/o Cardiorenal Syndrome r/o Hepatorenal Syndrome although less likely the acute issue currently Hemoptysis r/o Pneumonia HIV Hep C Liver Cirrhosis Coagulopathy Thromobocytopenia Lactic Acidosis +Troponins likely Demand Ischemia - continue dobutamine, lasix gtts - d/c octreotide gtt - continue midodrine - monitor urine output, creatinine - daily weights, I/Os - continue empiric antibiotics - f/u cultures - monitor hemoptysis - trend lactate, likely impaired clearance from liver dysfunction - lactulose - monitor ammonia level - PO per GI - taper FiO2 to keep SpO2 >90% - inhaled bronchodilators as needed - DVT/GI prophylaxis - continue ICU monitoring critical care time spent in reviewing chart, evaluating patient and formulating plan 35 min
--- NOTE | 2017-12-21 14:48 | PN ---
Progress Note, Physician Chief Complaint: SOB much improved Good urine output Cr improving History of Present Illness: Mr. Wagner is a 57 year old male with a pmhx of asthma, HIV, htn, cirrhosis, IVDU, ?TB, h/o pleural effusion s/p chest tube in 2005 who presents with hemoptysis for [address] chest with liver cirrhosis, spleenomegaly, and extensive upper abdominal varices along with b/l pleural effusions. Echocardiogram with severe global LV hypokinesis. EKG with afib which is now converted back to sinus. Developed worsening sob yesterday in the setting of AI and minimal urine output. Was started on dobutamine and vasopressin and with improvement in urine output and sob. - Current Medication List Current Medications: Active Medications Albuterol Sulfate (Ventolin 0.083% Nebulizer Soln -) 1 amp NEB Q4H PRN PRN Reason: SHORT OF BREATH/WHEEZING Furosemide 100 mg/ Sodium (Chloride) 100 mls @ 5 mls/hr IVPB TITR KAREN; 5 MG/HR PRN Reason: Protocol Last Admin: 12/21/17 05:09 Dose: Not Given Dobutamine HCl/Dextrose (Dobutamine 250 Mg/D5w -) 250,000 mcg in 250 mls @ 66.678 mls/hr IV TITR KAREN PRN Reason: 10 MCG/KG/MIN Last Admin: 12/21/17 10:29 Dose: 10 mcg/kg/min, 66.678 mls/hr CEFTRIAXONE 1 G/50 ML PREMIX (Ceftriaxone 1 Gm-D5w Bag) 50 mls @ 200 mls/hr IVPB DAILY [facility]EN Last Admin: 12/21/17 10:30 Dose: 200 mls/hr Lactulose (Cephulac (Oral Use)) 20 gm PO TID KAREN Last Admin: 12/21/17 14:10 Dose: 20 gm Midodrine (Proamatine -) 10 mg PO TID-MID KAREN Last Admin: 12/21/17 14:11 Dose: 10 mg Pantoprazole Sodium (Protonix Iv) 40 mg IVPUSH DAILY [facility]AREN Last Admin: 12/21/17 10:30 Dose: 40 mg Phytonadione (Mephyton -) 5 mg PO DAILY KAREN - Objective Vital Signs: Vital Signs Temperature 98.8 F 12/21/17 10:00 Pulse Rate 65 12/21/17 10:00 Respiratory Rate 13 12/21/17 10:00 Blood Pressure 130/62 12/21/17 10:29 O2 Sat by Pulse Oximetry (%) 97 12/21/17 10:00 Constitutional: Yes: No Distress Cardiovascular: Yes: Regular Rate and Rhythm, JVD, S1, S2 Respiratory: Yes: Rales (bibasilar rales) Gastrointestinal: Yes: Soft Edema: No Labs: CBC, BMP 12/21/17 05:25 12/21/17 05:25 INR, PTT INR 2.71 (0.82-1.09) H 12/21/17 05:25 Problem List - Problems (1) Atrial fibrillation Code(s): I48.91 - UNSPECIFIED ATRIAL FIBRILLATION Assessment/Plan Mr. Wagner is a 57 year old male with a pmhx of asthma, htn, cirrhosis, IVDU, ? TB, h/o pleural effusion s/p chest tube in 2005 who presents with hemoptysis for [address] chest with liver cirrhosis, spleenomegaly, and extensive upper abdominal varices along with b/l pleural effusions. Echocardiogram with severe global LV hypokinesis. EKG with afib which is now converted back to sinus. Developed worsening sob yesterday in the setting of XUAN and minimal urine output. Was started on dobutamine and vasopressin and with improvement in urine output and sob. -XUAN due to cardiorenal vs hepatorenal putting out good urine with improvement in renal function on dobutamine/lasix drip and would continue for now. Octreotide/midodrine as per renal team for possible hepatorenal Monitor lytes closely -Afib- currently in sinus rhythm. Anticoagulation currently on hold as per primary team given risk of bleeding in patient with thrombocytopenia, varices, and hemoptysis -ID- AFB's to r/o TB Abx as per ID team.
--- NOTE | 2017-12-21 15:24 | PN ---
Physical Exam: SUBJECTIVE: Patient seen and examined. On NC. Chatting with brother. Breathing much easier. OBJECTIVE: Vital Signs Period Temp Pulse Resp BP Sys/Martinez Pulse Ox Last 24 Hr 98 F-99.6 F 65-89 11-18 118-150/53-65 97-100 GENERAL: The patient is awake, alert, and fully oriented, in no acute distress. Speech unlabored on NC. LUNGS: Bibasilar crackles HEART: Irregular, S1, S2 ABDOMEN: soft, not tender, not distended; palpable liver edge : nair in place, clear yellow urine EXTREMITIES: 2+ pulses, warm, well-perfused, no edema. NEUROLOGICAL: Cranial nerves II through XII grossly intact. Normal speech, moving all extremities freely Laboratory Results - last 24 hr 12/17/17 12/19/17 12/20/17 09:45 11:35 05:55 WBC RBC Hgb Hct MCV MCH MCHC RDW Plt Count MPV PT with INR INR Sodium Potassium Chloride Carbon Dioxide Anion Gap BUN Creatinine Creat Clearance w eGFR Random Glucose Calcium Total Bilirubin AST ALT Alkaline Phosphatase Total Protein Albumin Tot Complement (CH50) 40 L Hepatitis A IgM Ab Negative Hep Bs Antigen Negative Hep B Core IgM Ab Negative Hepatitis C Antibody >11.0 H TB Test (QFT) Positive H Blood Type Antibody Screen 12/21/17 12/21/17 12/21/17 05:25 05:25 05:25 WBC 3.3 L D RBC 2.65 L Hgb 9.8 L D Hct 28.5 L D MCV 107.5 H MCH 37.0 H MCHC 34.4 RDW 15.2 Plt Count 34 L* D MPV 10.4 PT with INR 30.60 H INR 2.71 H Sodium 135 L Potassium 3.5 D Chloride 99 Carbon Dioxide 28 D Anion Gap 8 BUN 74 H Creatinine 3.0 H D Creat Clearance w eGFR 21.75 Random Glucose 152 H Calcium 7.8 L Total Bilirubin 4.1 H D AST 107 H ALT 84 H Alkaline Phosphatase 35 L D Total Protein 6.5 Albumin 3.3 L D Tot Complement (CH50) Hepatitis A IgM Ab Hep Bs Antigen Hep B Core IgM Ab Hepatitis C Antibody TB Test (QFT) Blood Type Antibody Screen 12/21/17 12:50 WBC RBC Hgb Hct MCV MCH MCHC RDW Plt Count MPV PT with INR INR Sodium Potassium Chloride Carbon Dioxide Anion Gap BUN Creatinine Creat Clearance w eGFR Random Glucose Calcium Total Bilirubin AST ALT Alkaline Phosphatase Total Protein Albumin Tot Complement (CH50) Hepatitis A IgM Ab Hep Bs Antigen Hep B Core IgM Ab Hepatitis C Antibody TB Test (QFT) Blood Type O POSITIVE Antibody Screen Negative Active Medications Generic Name Dose Route Start Last Admin Trade Name Freq PRN Reason Stop Dose Admin Albuterol Sulfate 1 amp 12/16/17 17:44 Ventolin 0.083% Nebulizer Soln - NEB Q4H PRN SHORT OF BREATH/WHEEZING Furosemide 100 mg/ Sodium 100 mls @ 5 mls/hr 12/20/17 02:00 12/21/17 05:09 Chloride IVPB Not Given TITR KAREN Protocol 5 MG/HR Dobutamine HCl/Dextrose 250,000 mcg in 250 mls @ 66.678 mls/hr 12/20/17 05:50 12/21/17 10:29 Dobutamine 250 Mg/D5w - IV 10 mcg/kg/min TITR KAREN 66.678 mls/hr 10 MCG/KG/MIN Administration CEFTRIAXONE 1 G/50 ML PREMIX 50 mls @ 200 mls/hr 12/21/17 10:00 12/21/17 10: 30 Ceftriaxone 1 Gm-D5w Bag IVPB 200 mls/hr DAILY KAREN Administration Lactulose 20 gm 12/19/17 14:00 12/21/17 14:10 Cephulac (Oral Use) PO 20 gm TID KAREN Administration Midodrine 10 mg 12/20/17 14:00 12/21/17 14:11 Proamatine - PO 10 mg TID-MID KAREN Administration Pantoprazole Sodium 40 mg 12/20/17 10:00 12/21/17 10:30 Protonix Iv IVPUSH 40 mg DAILY KAREN Administration Phytonadione 5 mg 12/22/17 10:00 Mephyton - PO DAILY KAREN ASSESSMENT/PLAN 57 year-old male with a PMH significant for HTN, asthma, +PPD, cirrhosis, Hep C s/p failed Harvoni treatment, HIV+, former IVDU. Cardiorenal syndrome Acute renal failure, improved --Cr 5.5-->3.0 --put out almost 8L in past 24 hours, down 6kg since admission --continue dobutamine and lasix drips --continue midodrine Acute severe systolic heart failure --12/19 Echo: LV severely reduced, severe global hypokinesis, moderate cLVH; RV "appears diminished"; LA severely dilated, RA moderately dilated; mild MR; mild PI; moderate aortic root dilatation, mildly dilated ascending aorta (4.1cm) --continue dobutamine and lasix drips --cardiology following Atrial fibrillation, resolved --back in SR Cirrhosis Hepatitis C Portal hypertension Abdominal varices --no indication of ascites on US --octreotide drip d/c'd Metabolic encephalopathy Hyperammonemia --mental status improved --lactulose TID Community acquired pneumonia +PPD --LLL infiltrate, continue Zosyn --AFB sputum smears neg x 3 Abdominal pain Cholilithiasis --CTAP pending --HIDA scan when more stable HIV --10/2017 T cell count 394, viral load undetectable FEN Fluids: PO intake adequate Electrolytes: replete as indicated Nutrition: clears DVT prophylaxis: hold chemical prophylaxis due to hemoptysis; SCDs Visit type - Emergency Visit Emergency Visit: Yes ED Registration Date: 12/16/17 Care time: The patient presented to the Emergency Department on the above date and was hospitalized for further evaluation of their emergent condition. - New Patient This patient is new to me today: No - Critical Care Critical Care patient: Yes Total Critical Care Time (in minutes): 40 Critical Care Statement: The care of this patient involved high complexity decision making to prevent further life threatening deterioration of the patient 's condition and/or to evaluate & treat vital organ system(s) failure or risk of failure.
[2017-12-21 19:50] LABS: ANION GAP 7 (8-16); BLOOD UREA NITROGEN 56 mg/dL (7-18); CHLORIDE 98 mmol/L (98-107); CO2 31 mmol/L (21-32); CREATININE 2.3 mg/dL (0.7-1.3); GLUCOSE,RANDOM 115 mg/dL (74-106); POTASSIUM 3.3 mmol/L (3.5-5.1); SODIUM 136 mmol/L (136-145)
[2017-12-21 19:51] LABS: ALBUMIN 3.4 g/dl (3.4-5.0); ANION GAP 9 (8-16); BLOOD UREA NITROGEN 58 mg/dL (7-18); CALCIUM 7.8 mg/dL (8.5-10.1); CHLORIDE 98 mmol/L (98-107); CO2 30 mmol/L (21-32); GLUCOSE,RANDOM 118 mg/dL (74-106); POTASSIUM 3.3 mmol/L (3.5-5.1); SGOT/AST 110 U/L (15-37); SGPT/ALT 95 U/L (12-78); SODIUM 137 mmol/L (136-145)
[2017-12-21 19:53] LABS: ALK PHOS 41 U/L (45-117); CREATININE 2.4 mg/dL (0.7-1.3); TOT PROT 6.9 g/dl (6.4-8.2)
[2017-12-21] MEDS ORDERED: FUROSEMIDE 40 MG/4 ML INJECTABLE VIAL ONE (23:17)
[2017-12-22 00:07] LABS: ATYPICAL pANCA <1:20 titer (Neg:<1:20); C-ANCA <1:20 titer (Neg:<1:20); P-ANCA <1:20 titer (Neg:<1:20); PROTEINASE-3 ANTIBODY <3.5 U/mL (0.0-3.5)
[2017-12-22] MEDS: FUROSEMIDE INJECTION 100 MG in SODIUM CHLORIDE 90 ML IVPB SCH ×2 (03:20→22:43)
[2017-12-22] MEDS ORDERED: PT OWN MED DRAWER 7, Y5N ONE ×5 (04:42→17:54)
[2017-12-22] MEDS: LACTULOSE 20 GM/30 ML UDC (FOR ORAL USE ONLY) PO SCH ×3 (06:26→21:14)
[2017-12-22] MEDS: DOBUTAMINE 250 MG/D5W - 250,000 MCG/250 ML INFUS.BAG IV SCH ×2 (06:26→11:48)
[2017-12-22 06:43] LABS: HEMATOCRIT 30.8 % (35.4-49); HEMOGLOBIN 10.7 GM/dL (11.7-16.9); MCH 37.2 pg (25.7-33.7); MCHC 34.8 g/dl (32.0-35.9); MEAN CELL VOLUME 106.7 fl (80-96); MEAN PLT VOLUME 9.4 fl (7.5-11.1); PLATELET COUNT 47 K/MM3 (134-434); RBC 2.88 M/mm3 (4.00-5.60); RDW 15.1 % (11.9-15.9); WHITE BLOOD COUNT 3.8 K/mm3 (4.0-10.0)
[2017-12-22 07:12] LABS: CHLORIDE 98 mmol/L (98-107); SODIUM 139 mmol/L (136-145)
--- NOTE | 2017-12-22 07:17 | PN ---
Progress Note, Physician Chief Complaint: ID Zosyn changed to Ceftriaxone given dropping platelets. Subjective improvement especially respiratory status 4 sputums for AFB are SMEAR negative. - Current Medication List Current Medications: Active Medications Albuterol Sulfate (Ventolin 0.083% Nebulizer Soln -) 1 amp NEB Q4H PRN PRN Reason: SHORT OF BREATH/WHEEZING Furosemide 100 mg/ Sodium (Chloride) 100 mls @ 5 mls/hr IVPB TITR KAREN; 5 MG/HR PRN Reason: Protocol Last Admin: 12/22/17 03:20 Dose: 5 mg/hr, 5 mls/hr Dobutamine HCl/Dextrose (Dobutamine 250 Mg/D5w -) 250,000 mcg in 250 mls @ 66.678 mls/hr IV TITR KAREN PRN Reason: 10 MCG/KG/MIN Last Admin: 12/22/17 06:26 Dose: 10 mcg/kg/min, 66.678 mls/hr CEFTRIAXONE 1 G/50 ML PREMIX (Ceftriaxone 1 Gm-D5w Bag) 50 mls @ 200 mls/hr IVPB DAILY KAREN Last Admin: 12/21/17 10:30 Dose: 200 mls/hr Lactulose (Cephulac (Oral Use)) 20 gm PO TID KAREN Last Admin: 12/22/17 06:26 Dose: 20 gm Midodrine (Proamatine -) 10 mg PO TID-MID KAREN Last Admin: 12/21/17 19:52 Dose: 10 mg Pantoprazole Sodium (Protonix Iv) 40 mg IVPUSH DAILY KAREN Last Admin: 12/21/17 10:30 Dose: 40 mg Phytonadione (Mephyton -) 5 mg PO DAILY KAREN - Objective Vital Signs: Vital Signs Temperature 98.6 F 12/22/17 06:00 Pulse Rate 72 12/22/17 06:00 Respiratory Rate 18 12/22/17 06:00 Blood Pressure 127/43 12/22/17 06:00 O2 Sat by Pulse Oximetry (%) 97 12/21/17 22:00 Constitutional: Yes: Well Nourished, No Distress Eyes: Yes: WNL, Conjunctiva Clear HENT: Yes: WNL, Atraumatic Neck: Yes: WNL, Supple Cardiovascular: Yes: Murmur, S1, S2, Other (Grade 2-3/6 SYSTOLIC MURUMUR LSB and right 2nd ICS) Respiratory: Yes: WNL, Regular, CTA Bilaterally. No: Rales, Rhonchi, Wheezes Gastrointestinal: Yes: WNL, Normal Bowel Sounds, Soft. No: Tenderness Labs: INR, PTT INR 2.71 (0.82-1.09) H 12/21/17 05:25 Assessment/Plan Microbiology 12/20/17 06:00 Sputum - Expectorated Direct Acid Fast Bacilli Smear - Final 12/17/17 15:20 Sputum - Expectorated AFB Smear Concentration - Final 12/17/17 15:20 Sputum - Expectorated Direct Acid Fast Bacilli Smear - Final 12/17/17 00:00 Sputum - Expectorated Direct Acid Fast Bacilli Smear - Final 12/17/17 00:00 Sputum - Expectorated AFB Smear Concentration - Final 12/17/17 00:00 Sputum - Expectorated Direct Acid Fast Bacilli Smear - Final 12/20/17 06:00 Sputum - Expectorated AFB Smear Concentration - Preliminary 12/20/17 06:00 Sputum - Expectorated Mycobacterial Culture - Preliminary 12/17/17 15:20 Sputum - Expectorated Mycobacterial Culture - Preliminary 12/17/17 00:00 Sputum - Expectorated Mycobacterial Culture - Preliminary 12/17/17 00:00 Sputum - Expectorated AFB Smear Concentration - Preliminary 12/17/17 00:00 Sputum - Expectorated Mycobacterial Culture - Preliminary Laboratory Tests 12/17/17 12/20/17 12/21/17 09:45 05:55 17:00 BUN 58 H Creatinine 2.4 H Total Bilirubin 5.0 H D AST 110 H ALT 95 H Alkaline Phosphatase 41 L Absolute CD4 [place] T-Lymph CD4/CD8 Ratio Hepatitis C Antibody >11.0 H TB Test (QFT) Positive H 12/22/17 12/22/17 05:10 05:10 BUN Pending Creatinine Pending Total Bilirubin Pending AST Pending ALT Pending Alkaline Phosphatase Pending Absolute CD4 [place] Pending T-Lymph CD4/CD8 Ratio Pending Hepatitis C Antibody TB Test (QFT) Assessment Congestive heart failure Pneumonia less likely HIV infection has been previously undectable Meds on hold secondary to kidney function History of positive PPD Liver cirrhosis Pancytopenia secondary cirrhosis Enterococcal urinary culture ? UTI Plan Will stop isolation as 4 smears negative and los suspicion for active TB (probe pending) Complete Ceftriaxone tomorrow dose CD4 sent Hold on HIV meds for now given LFTs and renal function Give oral amoxicillin for ? prostatitis Discussed with resident and cardiology Critical care time spent today 35 minutes Cheyenne Quinn MD
[2017-12-22 07:34] LABS: ALK PHOS 44 U/L (45-117); ANION GAP 8 (8-16); BILIRUBIN,TOTAL 5.3 mg/dL (0.2-1.0); BLOOD UREA NITROGEN 46 mg/dL (7-18); CALCIUM 7.8 mg/dL (8.5-10.1); CO2 33 mmol/L (21-32); CREATININE 1.8 mg/dL (0.7-1.3); GLUCOSE,RANDOM 133 mg/dL (74-106); MAGNESIUM 2.1 mg/dL (1.8-2.4); PHOSPHOROUS 2.3 mg/dL (2.5-4.9); SGOT/AST 97 U/L (15-37); SGPT/ALT 90 U/L (12-78); TOT PROT 6.4 g/dl (6.4-8.2)
[2017-12-22] MEDS ORDERED: NAPH,MB-DB/K PH,MBDB POWDER PACKET PO ONE (08:30)
[2017-12-22] MEDS ORDERED: POTASSIUM CHLORIDE TABS 20 MEQ TABLET.ER (FP) PO ONE ×2 (08:30→14:00)
[2017-12-22 09:01] LABS: INR 2.45 (0.82-1.09); PROTHROMBIN TIME (PATIENT) 27.7 SEC (9.98-11.88)
[2017-12-22] MEDS: AMOXICILLIN 500 MG CAPSULE (FP) PO SCH ×2 (09:38→21:14)
[2017-12-22] MEDS: CEFTRIAXONE 1 G/50 ML PREMIX 50 ML IVPB SCH (09:40)
[2017-12-22] MEDS: MIDODRINE HCL 5 MG TABLET PO SCH ×3 (09:40→17:56)
[2017-12-22] MEDS: PANTOPRAZOLE SODIUM 40 MG VIAL IVPUSH SCH (09:45)
[2017-12-22] MEDS: PHYTONADIONE 5 MG TABLET PO SCH (09:46)
--- NOTE | 2017-12-22 11:18 | PN ---
Progress Note (short form) - Note Progress Note: Pt with HIV, Hep C, cirrhosis and portal hypertension, coagulopathy, h/o TB treated twice in past, had been on airborne precautions for hemoptysis - now off after 4 negative AFB smears, gallstones noted on CT/AXR/US but with contracted gallbladder, mild elevation amylase and lipase previously but not yet repeated. His renal function is now improving; he has a Alvarado with yellow urine output, >350ml in meter bag now. Asked about abdominal pain, he denies having any. He has been taking po and having BMs. Vital Signs Period Temp Pulse Resp BP Sys/Martinez Pulse Ox Last 24 Hr 98.2 F-98.6 F 62-98 13-21 107-164/43-77 97-97 Intake & Output 12/21/17 12/22/17 12/22/17 23:59 07:59 15:59 Intake Total 1388 Output Total 3300 Balance -1912 Weight 221 lb 4 oz Intake: IV 888 DOBUTAMINE 250 MG/D5W - 828 250,000 mcg In 250 ml @ 10 MCG/KG/MIN 66.678 mls/ hr IV TITR KAREN Rx#: [id number] Lasix Injection - 100 mg 60 In Normal Saline - 90 ml @ 5 MG/HR 5 mls/hr IVPB TITR KAREN Rx#:[id number] Oral 500 Output: Urine 3300 [place] 3300 Other: Voiding Method Indwelling Catheter Bowel Movement Yes Yes # Bowel Movements 2 1 Weight Measurement Method Built in [facility] PE: awake, lethargic ext without significant edema, no cyanosis abdomen soft, obese, mildly tender suprapubic and LLQ, no rebound or guarding Alvarado with yellow urine no rash or jaundice CBCD WBC 3.8 K/mm3 (4.0-10.0) L 12/22/17 05:10 RBC 2.88 M/mm3 (4.00-5.60) L 12/22/17 05:10 Hgb 10.7 GM/dL (11.7-16.9) L 12/22/17 05:10 Hct 30.8 % (35.4-49) L 12/22/17 05:10 MCV 106.7 fl (80-96) H 12/22/17 05:10 MCHC 34.8 g/dl (32.0-35.9) 12/22/17 05:10 RDW 15.1 % (11.9-15.9) 12/22/17 05:10 Plt Count 47 K/MM3 (134-434) L D 12/22/17 05:10 MPV 9.4 fl (7.5-11.1) 12/22/17 05:10 CMP Sodium 139 mmol/L (136-145) 12/22/17 05:10 Potassium 3.0 mmol/L (3.5-5.1) L 12/22/17 05:10 Chloride 98 mmol/L (98-107) 12/22/17 05:10 Carbon Dioxide 33 mmol/L (21-32) H 12/22/17 05:10 Anion Gap 8 (8-16) 12/22/17 05:10 BUN 46 mg/dL (7-18) H D 12/22/17 05:10 Creatinine 1.8 mg/dL (0.7-1.3) H D 12/22/17 05:10 Creat Clearance w eGFR 39.23 (>60) 12/22/17 05:10 Calcium 7.8 mg/dL (8.5-10.1) L 12/22/17 05:10 Total Bilirubin 5.3 mg/dL (0.2-1.0) H 12/22/17 05:10 AST 97 U/L (15-37) H 12/22/17 05:10 ALT 90 U/L (12-78) H 12/22/17 05:10 Alkaline Phosphatase 44 U/L (45-117) L 12/22/17 05:10 Total Protein 6.4 g/dl (6.4-8.2) 12/22/17 05:10 Albumin 3.0 g/dl (3.4-5.0) L 12/22/17 05:10 Abnormal Lab Results 12/21/17 12/21/17 12/22/17 17:00 17:00 05:10 WBC RBC Hgb Hct MCV MCH Plt Count PT with INR INR Potassium 3.3 L 3.3 L Carbon Dioxide Anion Gap 7 L BUN 56 H D 58 H Creatinine 2.3 H D 2.4 H Random Glucose 115 H D 118 H Calcium 8.0 L 7.8 L Phosphorus Total Bilirubin 5.0 H D AST 110 H ALT 95 H Alkaline Phosphatase 41 L Ammonia 67.81 H Albumin 12/22/17 12/22/17 12/22/17 05:10 05:10 05:10 WBC 3.8 L RBC 2.88 L Hgb 10.7 L Hct 30.8 L MCV 106.7 H MCH 37.2 H Plt Count 47 L D PT with INR 27.70 H INR 2.45 H Potassium 3.0 L Carbon Dioxide 33 H Anion Gap BUN 46 H D Creatinine 1.8 H D Random Glucose 133 H Calcium 7.8 L Phosphorus 2.3 L D Total Bilirubin 5.3 H AST 97 H ALT 90 H Alkaline Phosphatase 44 L Ammonia Albumin 3.0 L amylase, lipase not repeated K, Phos low bili, ammonia up A/P: HIV+, Hep C, cirrhosis with coagulopathy and portal hypertension, h/o TB admitted with hemoptysis, ruling out TB/off airborne precautions acute renal failure of unclear etiology - hepatorenal? cardiorenal? - improving , with good urine output, nephrology on board pt has gallstones, but not necessarily the source of any pain and not his primary problem had one elevated amylase and lipase, lab has not been repeated could consider HIDA scan and/or MRCP once medically more stable and off airborne precautions - if gallbladder or bile duct needs drainage, would defer to GI or IR for endoscopic or percutaneous intervention chest CT showed "extensive upper abdominal varices" - along with coagulopathy and liver disease, pt is high risk for any invasive intervention will sign off, as pt is not a surgical candidate please re-call with any questions Dr. Ed Claudio is covering for me through Tuesday. Problem List - Problems (1) Calculus of gallbladder without cholecystitis without obstruction Code(s): K80.20 - CALCULUS OF GALLBLADDER W/O CHOLECYSTITIS W/O OBSTRUCTION (2) Advanced cirrhosis of liver Code(s): K74.60 - UNSPECIFIED CIRRHOSIS OF LIVER (3) Portal hypertension Code(s): K76.6 - PORTAL HYPERTENSION (4) Hepatitis C Code(s): B19.20 - UNSPECIFIED VIRAL HEPATITIS C WITHOUT HEPATIC COMA Qualifiers: Viral hepatitis chronicity: chronic Hepatic coma status: without hepatic coma Qualified Code(s): B18.2 - Chronic viral hepatitis C (5) Abdominal pain Code(s): R10.9 - UNSPECIFIED ABDOMINAL PAIN Qualifiers: Abdominal location: generalized Qualified Code(s): R10.84 - Generalized abdominal pain (6) Hemoptysis Code(s): R04.2 - HEMOPTYSIS (7) H/O TB (tuberculosis) Code(s): Z86.11 - PERSONAL HISTORY OF TUBERCULOSIS (8) HIV (human immunodeficiency virus infection) Code(s): B20 - HUMAN IMMUNODEFICIENCY VIRUS [HIV] DISEASE (9) Acute kidney failure Code(s): N17.9 - ACUTE KIDNEY FAILURE, UNSPECIFIED Qualifiers: Acute renal failure type: unspecified Qualified Code(s): N17.9 - Acute kidney failure, unspecified (10) Asthma Code(s): J45.909 - UNSPECIFIED ASTHMA, UNCOMPLICATED Qualifiers: Asthma severity: unspecified severity Asthma persistence: unspecified Asthma complication type: unspecified Qualified Code(s): J45.909 - Unspecified asthma, uncomplicated
--- NOTE | 2017-12-22 12:09 | PN ---
Teaching Attending Note Name of Resident: Nikki Monsivais ATTENDING PHYSICIAN STATEMENT I saw and evaluated the patient. I reviewed the resident's note and discussed the case with the resident. I agree with the resident's findings and plan as documented. SUBJECTIVE: Pt seen and examined in the ICU. Breathing continues to improve. Still with good urine output on dobutamine and lasix gtts. Hemoptysis resolving. OBJECTIVE: Last Vital Signs Temp Pulse Resp BP Pulse Ox 98.8 F 73 13 146/71 97 12/22/17 10:00 12/22/17 10:00 12/22/17 10:00 12/22/17 10:00 12/22/17 10:00 Intake & Output 12/19/17 12/20/17 12/21/17 12/22/17 23:59 23:59 23:59 23:59 Intake Total 2363 1524.5 2608 1388 Output Total 30 7900 3800 3300 Balance 2333 -6375.5 -1192 -1912 Weight 109.9 kg 105.318 kg 100.357 kg Gen: less tachypneic Heart: RRR Lung: decreased breath sounds at the bases Abd: soft, nontender Ext: no edema CBC, BMP 12/22/17 05:10 Active Medications Albuterol Sulfate (Ventolin 0.083% Nebulizer Soln -) 1 amp NEB Q4H PRN PRN Reason: SHORT OF BREATH/WHEEZING Amoxicillin (Amoxicillin -) 500 mg PO BID KAREN Last Admin: 12/22/17 09:38 Dose: 500 mg Furosemide 100 mg/ Sodium (Chloride) 100 mls @ 5 mls/hr IVPB TITR KAREN; 5 MG/HR PRN Reason: Protocol Last Admin: 12/22/17 03:20 Dose: 5 mg/hr, 5 mls/hr Dobutamine HCl/Dextrose (Dobutamine 250 Mg/D5w -) 250,000 mcg in 250 mls @ 66.678 mls/hr IV TITR KAREN PRN Reason: 10 MCG/KG/MIN Last Admin: 12/22/17 11:48 Dose: 10 mcg/kg/min, 66.678 mls/hr CEFTRIAXONE 1 G/50 ML PREMIX (Ceftriaxone 1 Gm-D5w Bag) 50 mls @ 200 mls/hr IVPB DAILY KAREN Last Admin: 12/22/17 09:40 Dose: 200 mls/hr Lactulose (Cephulac (Oral Use)) 20 gm PO TID [facility] Last Admin: 12/22/17 06:26 Dose: 20 gm Midodrine (Proamatine -) 10 mg PO TID-MID [facility] Last Admin: 12/22/17 09:40 Dose: 10 mg Pantoprazole Sodium (Protonix Iv) 40 mg IVPUSH DAILY [facility] Last Admin: 12/22/17 09:45 Dose: 40 mg Phytonadione (Mephyton -) 5 mg PO DAILY [facility] Last Admin: 12/22/17 09:46 Dose: 5 mg Potassium Chloride (K-Dur -) 20 meq PO ONCE ONE Stop: 12/22/17 14:01 ASSESSMENT AND PLAN: Acute on Chronic Systolic/Diastolic Heart Failure Atrial Fibrillation with RVR Acute Kidney Injury r/o Cardiorenal Syndrome r/o Hepatorenal Syndrome although less likely the acute issue currently Hemoptysis r/o Pneumonia HIV Hep C Liver Cirrhosis Coagulopathy Thromobocytopenia Lactic Acidosis +Troponins likely Demand Ischemia - continue dobutamine, lasix gtts, can likely stop in AM - continue midodrine - monitor urine output, creatinine - daily weights, I/Os - replete lytes - continue empiric antibiotics - f/u cultures - monitor hemoptysis - lactate normalized - lactulose - monitor ammonia level - PO per GI - taper FiO2 to keep SpO2 >90% - inhaled bronchodilators as needed - DVT/GI prophylaxis - continue ICU monitoring critical care time spent in reviewing chart, evaluating patient and formulating plan 35 min
--- NOTE | 2017-12-22 13:00 | PN ---
Progress Note, Physician History of Present Illness: Patient is improving. UOP +7,000cc from yest and today. Still on dobutamine and lasix ggt Mild hemoptysis - Current Medication List Current Medications: Active Medications Albuterol Sulfate (Ventolin 0.083% Nebulizer Soln -) 1 amp NEB Q4H PRN PRN Reason: SHORT OF BREATH/WHEEZING Amoxicillin (Amoxicillin -) 500 mg PO BID KAREN Last Admin: 12/22/17 09:38 Dose: 500 mg Furosemide 100 mg/ Sodium (Chloride) 100 mls @ 5 mls/hr IVPB TITR KAREN; 5 MG/HR PRN Reason: Protocol Last Admin: 12/22/17 03:20 Dose: 5 mg/hr, 5 mls/hr Dobutamine HCl/Dextrose (Dobutamine 250 Mg/D5w -) 250,000 mcg in 250 mls @ 66.678 mls/hr IV TITR KAREN PRN Reason: 10 MCG/KG/MIN Last Admin: 12/22/17 11:48 Dose: 10 mcg/kg/min, 66.678 mls/hr CEFTRIAXONE 1 G/50 ML PREMIX (Ceftriaxone 1 Gm-D5w Bag) 50 mls @ 200 mls/hr IVPB DAILY KAREN Last Admin: 12/22/17 09:40 Dose: 200 mls/hr Lactulose (Cephulac (Oral Use)) 20 gm PO TID KAREN Last Admin: 12/22/17 06:26 Dose: 20 gm Midodrine (Proamatine -) 10 mg PO TID-MID KAREN Last Admin: 12/22/17 09:40 Dose: 10 mg Pantoprazole Sodium (Protonix Iv) 40 mg IVPUSH DAILY KAREN Last Admin: 12/22/17 09:45 Dose: 40 mg Phytonadione (Mephyton -) 5 mg PO DAILY KAREN Last Admin: 12/22/17 09:46 Dose: 5 mg Potassium Chloride (K-Dur -) 20 meq PO ONCE ONE Stop: 12/22/17 14:01 - Objective Vital Signs: Vital Signs Temperature 98.8 F 12/22/17 10:00 Pulse Rate 73 12/22/17 10:00 Respiratory Rate 13 12/22/17 10:00 Blood Pressure 146/71 12/22/17 10:00 O2 Sat by Pulse Oximetry (%) 97 12/22/17 10:00 Additional Findings/Remarks: GEN: AAOx3, NAD, Lying comfortably HEENT: PERRLA, EOMi CV: S1, S2, 3/6 systolic murmur LUNG: CTABL ABD: Soft, NT, ND MSK: No edema, no erythema NEURO: CN 2-12 intact Labs: CBC, BMP 12/22/17 05:10 INR, PTT INR 2.45 (0.82-1.09) H 12/22/17 05:10 Assessment/Plan 57yo with PMHx of Cirrhosis and TB (treated x1) presents with gross hemoptysis. In ICU after RR event. Was given IVF resuscitation leading to likely CHF exacerbation. # Renal: Acute Kidney Injury -- Marked improvement w/ dobutamine and lasix ggt. Most likely strong cardiorenal component. -- Will continue drips for one more day, stop tmrw. # Pulm: Hemoptysis, Hx of TB -- Hemoptysis improving, only needs NC. -- GBM antibodies sent, will follow. # Heme: Thrombocytopenia, Coagulopathy -- s/p 1u PLT last night. Likely from hepatic dysfunction. -- Vitamin K daily for coagulopathy # GI: Hep C (untreated), Cirrhosis w/ portal HTN, Gallstones -- Liver function is stable.Octreotide have been dc'd. Still on Midrodine 10 TID -- Consider referral to liver center # ID: Possible PNA, Hx of TB, HIV, +UTI -- Day 6 of antibiotics for PNA coverage (?LLL on Chest CT). Switched from Zosyn to Rocephin, dc tomorrow. -- Discussed +UCx findings w/ Dr Quinn. Agree to start Amoxicillin 500 BID for an additional 7 days for possible prostatitis -- Last viral load undetectable. Hold HIV tx for now. # CV: Hx of HTN, Elevated troponins -- On verapamil 240 daily # FEN/PPx -- Switched to sodium controlled diet w/ 1.5L fluid restriction -- No heparin due to thrombocytopenia, only SCDs, GI ppx w/ protonix # Dispo -- Likely transfer out of ICU tomorrow after drip discontinued Nikki Monsivais MD PGY1 ICU Medicine
--- NOTE | 2017-12-22 13:52 | PN ---
Progress Note, Physician Chief Complaint: SOB much improved Good urine output Cr improving History of Present Illness: Mr. Wagner is a 57 year old male with a pmhx of asthma, HIV, htn, cirrhosis, IVDU, ?TB, h/o pleural effusion s/p chest tube in 2005 who presents with hemoptysis for [address] chest with liver cirrhosis, spleenomegaly, and extensive upper abdominal varices along with b/l pleural effusions. Echocardiogram with severe global LV hypokinesis. EKG with afib which is now converted back to sinus. Developed worsening sob yesterday in the setting of AI and minimal urine output. Was started on dobutamine and vasopressin and with improvement in urine output and sob. - Current Medication List Current Medications: Active Medications Albuterol Sulfate (Ventolin 0.083% Nebulizer Soln -) 1 amp NEB Q4H PRN PRN Reason: SHORT OF BREATH/WHEEZING Amoxicillin (Amoxicillin -) 500 mg PO BID KAREN Last Admin: 12/22/17 09:38 Dose: 500 mg Furosemide 100 mg/ Sodium (Chloride) 100 mls @ 5 mls/hr IVPB TITR KAREN; 5 MG/HR PRN Reason: Protocol Last Admin: 12/22/17 03:20 Dose: 5 mg/hr, 5 mls/hr Dobutamine HCl/Dextrose (Dobutamine 250 Mg/D5w -) 250,000 mcg in 250 mls @ 66.678 mls/hr IV TITR KAREN PRN Reason: 10 MCG/KG/MIN Last Admin: 12/22/17 11:48 Dose: 10 mcg/kg/min, 66.678 mls/hr CEFTRIAXONE 1 G/50 ML PREMIX (Ceftriaxone 1 Gm-D5w Bag) 50 mls @ 200 mls/hr IVPB DAILY KAREN Last Admin: 12/22/17 09:40 Dose: 200 mls/hr Lactulose (Cephulac (Oral Use)) 20 gm PO TID KAREN Last Admin: 12/22/17 06:26 Dose: 20 gm Midodrine (Proamatine -) 10 mg PO TID-MID KAREN Last Admin: 12/22/17 09:40 Dose: 10 mg Pantoprazole Sodium (Protonix Iv) 40 mg IVPUSH DAILY [facility] Last Admin: 12/22/17 09:45 Dose: 40 mg Phytonadione (Mephyton -) 5 mg PO DAILY KAREN Last Admin: 12/22/17 09:46 Dose: 5 mg Potassium Chloride (K-Dur -) 20 meq PO ONCE ONE Stop: 12/22/17 14:01 - Objective Vital Signs: Vital Signs Temperature 98.8 F 12/22/17 10:00 Pulse Rate 75 12/22/17 12:00 Respiratory Rate 22 12/22/17 12:00 Blood Pressure 145/67 12/22/17 12:00 O2 Sat by Pulse Oximetry (%) 97 12/22/17 10:00 Constitutional: Yes: No Distress Cardiovascular: Yes: Regular Rate and Rhythm, S1, S2 Respiratory: Yes: CTA Bilaterally Gastrointestinal: Yes: Normal Bowel Sounds, Soft Edema: No Labs: CBC, BMP 12/22/17 05:10 INR, PTT INR 2.45 (0.82-1.09) H 12/22/17 05:10 Problem List - Problems (1) Atrial fibrillation Code(s): I48.91 - UNSPECIFIED ATRIAL FIBRILLATION Assessment/Plan Mr. Wagner is a 57 year old male with a pmhx of asthma, htn, cirrhosis, IVDU, ? TB, h/o pleural effusion s/p chest tube in 2005 who presents with hemoptysis for [address] chest with liver cirrhosis, spleenomegaly, and extensive upper abdominal varices along with b/l pleural effusions. Echocardiogram with severe global LV hypokinesis. EKG with afib which is now converted back to sinus. Developed worsening sob yesterday in the setting of XUAN and minimal urine output. Was started on dobutamine and vasopressin and with improvement in urine output and sob. -XUAN in setting of systolic CHF and cirrhosis putting out good urine with improvement in renal function on dobutamine/lasix drip Would consider weaning down dobutamine to 5mcg with plan to stop tomorrow. Octreotide/midodrine as per renal team for possible hepatorenal Monitor lytes closely bed bug exterminator from cardiac perspective should not be on calcium channel blockers. Would likely benefit from afterload bus starter and bblocker (when off beta ayala) . If cannot start aubrie-i given recent XUAN will likely start bidil if no aubrie/arb (as per renal). -Afib- currently in sinus rhythm. Anticoagulation currently on hold as per primary team given risk of bleeding in patient with thrombocytopenia, varices, and hemoptysis -ID- Abx as per ID team.
[2017-12-22] MEDS ORDERED: POTASSIUM CHLORIDE 10 MEQ in SODIUM CHLORIDE 100 ML IVPB SCH (14:15)
[2017-12-22 14:18] LABS: ANTIGLOMERULAR BASEMENT MEN.AB 3 units (0-20)
--- NOTE | 2017-12-22 14:29 | PN ---
Progress Note (short form) - Note Progress Note: Subjective: The patient was seen and examined at the bedside, he has no complaints at this time. Current Medications Generic Name Dose Route Start Last Admin Trade Name Freq PRN Reason Stop Dose Admin Albuterol Sulfate 1 amp 12/16/17 17:44 Ventolin 0.083% Nebulizer Soln - NEB Q4H PRN SHORT OF BREATH/WHEEZING Amoxicillin 500 mg 12/22/17 10:00 12/22/17 09:38 Amoxicillin - PO 500 mg BID KAREN Administration Furosemide 100 mg/ Sodium 100 mls @ 5 mls/hr 12/20/17 02:00 12/22/17 03:20 Chloride IVPB 5 mg/hr TITR KAREN 5 mls/hr Protocol Administration 5 MG/HR Dobutamine HCl/Dextrose 250,000 mcg in 250 mls @ 66.678 mls/hr 12/20/17 05:50 12/22/17 11:48 Dobutamine 250 Mg/D5w - IV 10 mcg/kg/min TITR KAREN 66.678 mls/hr 10 MCG/KG/MIN Administration CEFTRIAXONE 1 G/50 ML PREMIX 50 mls @ 200 mls/hr 12/21/17 10:00 12/22/17 09: 40 Ceftriaxone 1 Gm-D5w Bag IVPB 200 mls/hr DAILY KAREN Administration Potassium Chloride 10 meq/ 105 mls @ 105 mls/hr 12/22/17 14:15 Sodium Chloride IVPB 12/22/17 17:14 Q60M KAREN Lactulose 20 gm 12/19/17 14:00 12/22/17 14:06 Cephulac (Oral Use) PO 20 gm TID KAREN Administration Midodrine 10 mg 12/20/17 14:00 12/22/17 14:08 Proamatine - PO 10 mg TID-MID KAREN Administration Pantoprazole Sodium 40 mg 12/20/17 10:00 12/22/17 09:45 Protonix Iv IVPUSH 40 mg DAILY KAREN Administration Phytonadione 5 mg 12/22/17 10:00 12/22/17 09:46 Mephyton - PO 5 mg DAILY KAREN Administration Objective: Vital Signs Period Temp Pulse Resp BP Sys/Mratinez Pulse Ox Last 24 Hr 98.2 F-98.8 F 62-86 13-22 107-164/43-74 97-97 Physical Exam: Patient refused stating he was sleeping and doesn't "want to be bothered" CBCD WBC 3.8 K/mm3 (4.0-10.0) L 12/22/17 05:10 RBC 2.88 M/mm3 (4.00-5.60) L 12/22/17 05:10 Hgb 10.7 GM/dL (11.7-16.9) L 12/22/17 05:10 Hct 30.8 % (35.4-49) L 12/22/17 05:10 MCV 106.7 fl (80-96) H 12/22/17 05:10 MCHC 34.8 g/dl (32.0-35.9) 12/22/17 05:10 RDW 15.1 % (11.9-15.9) 12/22/17 05:10 Plt Count 47 K/MM3 (134-434) L D 12/22/17 05:10 MPV 9.4 fl (7.5-11.1) 12/22/17 05:10 CMP Sodium 139 mmol/L (136-145) 12/22/17 05:10 Potassium 3.0 mmol/L (3.5-5.1) L 12/22/17 05:10 Chloride 98 mmol/L (98-107) 12/22/17 05:10 Carbon Dioxide 33 mmol/L (21-32) H 12/22/17 05:10 Anion Gap 8 (8-16) 12/22/17 05:10 BUN 46 mg/dL (7-18) H D 12/22/17 05:10 Creatinine 1.8 mg/dL (0.7-1.3) H D 12/22/17 05:10 Creat Clearance w eGFR 39.23 (>60) 12/22/17 05:10 Random Glucose 133 mg/dL (74-106) H 12/22/17 05:10 Calcium 7.8 mg/dL (8.5-10.1) L 12/22/17 05:10 Total Bilirubin 5.3 mg/dL (0.2-1.0) H 12/22/17 05:10 AST 97 U/L (15-37) H 12/22/17 05:10 ALT 90 U/L (12-78) H 12/22/17 05:10 Alkaline Phosphatase 44 U/L (45-117) L 12/22/17 05:10 Total Protein 6.4 g/dl (6.4-8.2) 12/22/17 05:10 Albumin 3.0 g/dl (3.4-5.0) L 12/22/17 05:10 CARDIAC ENZYMES Creatine Kinase 174 IU/L (39-308) 12/19/17 06:40 Troponin I 0.22 ng/ml (0.00-0.05) H 12/20/17 05:55 Microbiology 12/20/17 06:00 Sputum - Expectorated AFB Smear Concentration - Preliminary 12/20/17 06:00 Sputum - Expectorated Direct Acid Fast Bacilli Smear - Final 12/20/17 06:00 Sputum - Expectorated Mycobacterial Culture - Preliminary 12/16/17 16:37 Blood - Peripheral Venous Blood Culture - Final NO GROWTH AFTER 5 DAYS INCUBATION 12/16/17 16:37 Blood - Peripheral Venous Blood Culture - Final NO GROWTH AFTER 5 DAYS INCUBATION 12/17/17 15:20 Sputum - Expectorated AFB Smear Concentration - Final 12/17/17 15:20 Sputum - Expectorated Direct Acid Fast Bacilli Smear - Final 12/17/17 15:20 Sputum - Expectorated Mycobacterial Culture - Preliminary 12/17/17 00:00 Sputum - Expectorated AFB Smear Concentration - Final 12/17/17 00:00 Sputum - Expectorated Direct Acid Fast Bacilli Smear - Final 12/17/17 00:00 Sputum - Expectorated Mycobacterial Culture - Preliminary 12/16/17 17:10 Urine - Urine Clean Catch Urine Culture - Final Enterococcus Faecalis 12/17/17 00:00 Sputum - Expectorated AFB Smear Concentration - Preliminary 12/17/17 00:00 Sputum - Expectorated Direct Acid Fast Bacilli Smear - Final 12/17/17 00:00 Sputum - Expectorated Mycobacterial Culture - Preliminary 12/16/17 17:10 Urine For Antigen Detection Legionella Antigen - Final 12/16/17 17:10 Urine For Antigen Detection Streptococcus pneumoniae Antigen (M - Final Assessment: This is a 57 year old male with PMHx of HTN, asthma, cirrhosis, HCV s/p failed Harvoni treatment, HIV, former IVDU who presented to the ED with hemoptysis and shortness of breath Plan: 1) XUAN in the setting of acute severe systolic heart failure - Urine output so far today 4.5L - Cr improving on Lasix and dobutamine gtt - Continue Midodrine - Appreciate nephrology consult 2) Acute on chronic systolic/diastolic heart failure - Continue Dobutamine gtt and lasix as above, may be able to d/c tomorrow - Strict I&O - 12/19 Echo: LV severely reduced, severe global hypokinesis, moderate cLVH; RV "appears diminished"; LA severely dilated, RA moderately dilated; mild MR; mild PI; moderate aortic root dilatation, mildly dilated ascending aorta (4.1cm) - Appreciate cardiology consult 3) A.fib - Converted back to sinus rhythm 4) HCV cirrhosis, portal HTN, abdominal varices - Now off octreotide gtt - No ascites - Continue Protonix - Continue Lactulose - Appreciate GI consult 5) Metabolic encephalopathy 2/2 - Mental status improving 6) Hemoptysis - Improving - 4 sputum for AFB are negative 7) Possible community acquired pneumonia - Complete ceftriaxone dose tomorrow - Appreciate ID consult 8) HIV - F/u CD4 count - Hold off on HIV medications for now per ID 9) Abdominal pain - CTAP reviewed - F/u GI for further recommendations 10) F/E/N: - Sodium controlled diet with fluid restriction - Monitor electrolytes 11) Prophylaxis: - Hold all chemical DVT prophylaxis 2/2 thrombocytopenia 12) Dispo: - Requires continued ICU care CODE STATUS: FULL CODE Visit type - Emergency Visit Emergency Visit: Yes ED Registration Date: 12/16/17 Care time: The patient presented to the Emergency Department on the above date and was hospitalized for further evaluation of their emergent condition. - New Patient This patient is new to me today: Yes Date on this admission: 12/25/17 - Critical Care Critical Care patient: Yes Total Critical Care Time (in minutes): 45 Critical Care Statement: The care of this patient involved high complexity decision making to prevent further life threatening deterioration of the patient 's condition and/or to evaluate & treat vital organ system(s) failure or risk of failure.
[2017-12-22] MEDS: KCL 10 MEQ IVPB 10 MEQ/100 ML INFUS.BAG IVPB SCH ×3 (15:48→17:56)
--- NOTE | 2017-12-22 15:49 | PN ---
Progress Note, Physician Chief Complaint: The patient seen in ICU. Doing much better. Hemodynamic status has improved significantly. On IV Lasix infusion with Dobutamine infusion. Urine output continues to be in large volume. - Current Medication List Current Medications: Active Medications Albuterol Sulfate (Ventolin 0.083% Nebulizer Soln -) 1 amp NEB Q4H PRN PRN Reason: SHORT OF BREATH/WHEEZING Amoxicillin (Amoxicillin -) 500 mg PO BID KAREN Last Admin: 12/22/17 09:38 Dose: 500 mg Furosemide 100 mg/ Sodium (Chloride) 100 mls @ 5 mls/hr IVPB TITR KAREN; 5 MG/HR PRN Reason: Protocol Last Admin: 12/22/17 03:20 Dose: 5 mg/hr, 5 mls/hr Dobutamine HCl/Dextrose (Dobutamine 250 Mg/D5w -) 250,000 mcg in 250 mls @ 66.678 mls/hr IV TITR KAREN PRN Reason: 10 MCG/KG/MIN Last Admin: 12/22/17 11:48 Dose: 10 mcg/kg/min, 66.678 mls/hr CEFTRIAXONE 1 G/50 ML PREMIX (Ceftriaxone 1 Gm-D5w Bag) 50 mls @ 200 mls/hr IVPB DAILY KAREN Last Admin: 12/22/17 09:40 Dose: 200 mls/hr Potassium Chloride (Potassium Chloride 10 Meq Premix Ivpb -) 10 meq in 100 mls @ 100 mls/hr IVPB Q60M KAREN Stop: 12/22/17 17:14 Lactulose (Cephulac (Oral Use)) 20 gm PO TID KAREN Last Admin: 12/22/17 14:06 Dose: 20 gm Midodrine (Proamatine -) 10 mg PO TID-MID [facility] Last Admin: 12/22/17 14:08 Dose: 10 mg Pantoprazole Sodium (Protonix Iv) 40 mg IVPUSH DAILY [facility] Last Admin: 12/22/17 09:45 Dose: 40 mg Phytonadione (Mephyton -) 5 mg PO DAILY [facility] Last Admin: 12/22/17 09:46 Dose: 5 mg - Objective Vital Signs: Vital Signs Temperature 98.6 F 12/22/17 14:00 Pulse Rate 68 12/22/17 14:00 Respiratory Rate 14 12/22/17 14:00 Blood Pressure 139/79 12/22/17 14:00 O2 Sat by Pulse Oximetry (%) 97 12/22/17 10:00 Constitutional: Yes: No Distress Eyes: Yes: Conjunctiva Clear HENT: Yes: Normocephalic Cardiovascular: Yes: Regular Rate and Rhythm, S1, S2 Respiratory: Yes: Regular, Diminished Gastrointestinal: Yes: Normal Bowel Sounds, Soft, Ascites Genitourinary: Yes: Alvarado Present, Polyuria Extremities: No: Calf Tenderness Edema: No Neurological: Yes: Alert, Oriented Labs: CBC, BMP 12/22/17 05:10 INR, PTT INR 2.45 (0.82-1.09) H 12/22/17 05:10 Problem List - Problems (1) Acute kidney failure Code(s): N17.9 - ACUTE KIDNEY FAILURE, UNSPECIFIED Qualifiers: Acute renal failure type: unspecified Qualified Code(s): N17.9 - Acute kidney failure, unspecified (2) Abdominal pain Code(s): R10.9 - UNSPECIFIED ABDOMINAL PAIN Qualifiers: Abdominal location: generalized Qualified Code(s): R10.84 - Generalized abdominal pain (3) Advanced cirrhosis of liver Code(s): K74.60 - UNSPECIFIED CIRRHOSIS OF LIVER (4) Asthma Code(s): J45.909 - UNSPECIFIED ASTHMA, UNCOMPLICATED Qualifiers: Asthma severity: unspecified severity Asthma persistence: unspecified Asthma complication type: unspecified Qualified Code(s): J45.909 - Unspecified asthma, uncomplicated (5) Cirrhosis Code(s): K74.60 - UNSPECIFIED CIRRHOSIS OF LIVER (6) H/O TB (tuberculosis) Code(s): Z86.11 - PERSONAL HISTORY OF TUBERCULOSIS (7) HIV (human immunodeficiency virus infection) Code(s): B20 - HUMAN IMMUNODEFICIENCY VIRUS [HIV] DISEASE (8) Pneumonia Code(s): J18.9 - PNEUMONIA, UNSPECIFIED ORGANISM (9) Hepatitis B Code(s): B19.10 - UNSPECIFIED VIRAL HEPATITIS B WITHOUT HEPATIC COMA (10) Hepatitis C Code(s): B19.20 - UNSPECIFIED VIRAL HEPATITIS C WITHOUT HEPATIC COMA Qualifiers: Viral hepatitis chronicity: chronic Hepatic coma status: without hepatic coma Qualified Code(s): B18.2 - Chronic viral hepatitis C Assessment/Plan This 57 year old male with a significant PMH of Br. Asthma, HTN, Cirrhosis, h/ o heroine abuse, TB x2, once treated 20 years ago and again in 2006. In 2006 he also had pleural effusion s/p CT placement with purulant TB drainage , he reports this happened while he was being treated for Hep C. The patient's Azotemia continues to improve, with improvement in Hemodynamic status. Will continue the IV Lasix and Dobutamine for now. Tendency for Hypokalemia, may be related to large K loss in the urine. Will supplement. Will also check Serum Mg and Phos. Will follow with you. Bhavna Adamson MD
--- NOTE | 2017-12-22 17:40 | PN ---
Progress Note (short form) - Note Progress Note: Please note. I will be away from 12/23/17 to 01/02/18. Dr. Nabil Burris will be covering for me in my absence. Problem List - Problems (1) Abdominal pain Code(s): R10.9 - UNSPECIFIED ABDOMINAL PAIN Qualifiers: Abdominal location: generalized Qualified Code(s): R10.84 - Generalized abdominal pain (2) Acute kidney failure Code(s): N17.9 - ACUTE KIDNEY FAILURE, UNSPECIFIED Qualifiers: Acute renal failure type: unspecified Qualified Code(s): N17.9 - Acute kidney failure, unspecified (3) Advanced cirrhosis of liver Code(s): K74.60 - UNSPECIFIED CIRRHOSIS OF LIVER (4) Calculus of gallbladder without cholecystitis without obstruction Code(s): K80.20 - CALCULUS OF GALLBLADDER W/O CHOLECYSTITIS W/O OBSTRUCTION (5) Coagulopathy Code(s): D68.9 - COAGULATION DEFECT, UNSPECIFIED (6) Hemoptysis Code(s): R04.2 - HEMOPTYSIS (7) Pneumonia Code(s): J18.9 - PNEUMONIA, UNSPECIFIED ORGANISM Qualifiers: Pneumonia type: due to unspecified organism Laterality: left Lung location: lower lobe of lung Qualified Code(s): J18.1 - Lobar pneumonia, unspecified organism (8) Portal hypertension Code(s): K76.6 - PORTAL HYPERTENSION (9) Hepatitis B Code(s): B19.10 - UNSPECIFIED VIRAL HEPATITIS B WITHOUT HEPATIC COMA (10) Hepatitis C Code(s): B19.20 - UNSPECIFIED VIRAL HEPATITIS C WITHOUT HEPATIC COMA Qualifiers: Viral hepatitis chronicity: chronic Hepatic coma status: without hepatic coma Qualified Code(s): B18.2 - Chronic viral hepatitis C
[2017-12-22] MEDS ORDERED: FUROSEMIDE 40 MG/4 ML INJECTABLE VIAL ONE (19:52)
[2017-12-23] MEDS: DOBUTAMINE 250 MG/D5W - 250,000 MCG/250 ML INFUS.BAG IV SCH (04:43)
[2017-12-23] MEDS: LACTULOSE 20 GM/30 ML UDC (FOR ORAL USE ONLY) PO SCH ×3 (06:43→21:36)
[2017-12-23 06:46] LABS: HEMATOCRIT 36.3 % (35.4-49); HEMOGLOBIN 12.5 GM/dL (11.7-16.9); MCH 36.8 pg (25.7-33.7); MCHC 34.4 g/dl (32.0-35.9); MEAN PLT VOLUME 9.9 fl (7.5-11.1); PLATELET COUNT 61 K/MM3 (134-434); RBC 3.39 M/mm3 (4.00-5.60); RDW 14.5 % (11.9-15.9); WHITE BLOOD COUNT 4.9 K/mm3 (4.0-10.0)
[2017-12-23 07:08] LABS: CHLORIDE 96 mmol/L (98-107); SODIUM 138 mmol/L (136-145)
--- NOTE | 2017-12-23 07:11 | PN ---
Progress Note, Physician Chief Complaint: ID Asymptomatic appetite poor no fever Making urine Last day of Ceftriaxone and get po Amoxicillin for Enterococcal UTI - Current Medication List Current Medications: Active Medications Albuterol Sulfate (Ventolin 0.083% Nebulizer Soln -) 1 amp NEB Q4H PRN PRN Reason: SHORT OF BREATH/WHEEZING Amoxicillin (Amoxicillin -) 500 mg PO BID [facility] Last Admin: 12/22/17 21:14 Dose: 500 mg Furosemide 100 mg/ Sodium (Chloride) 100 mls @ 5 mls/hr IVPB TITR KAREN; 5 MG/HR PRN Reason: Protocol Last Admin: 12/22/17 22:43 Dose: 5 mg/hr, 5 mls/hr Dobutamine HCl/Dextrose (Dobutamine 250 Mg/D5w -) 250,000 mcg in 250 mls @ 66.678 mls/hr IV TITR KAREN PRN Reason: 10 MCG/KG/MIN Last Admin: 12/23/17 04:43 Dose: 10 mcg/kg/min, 66.678 mls/hr CEFTRIAXONE 1 G/50 ML PREMIX (Ceftriaxone 1 Gm-D5w Bag) 50 mls @ 200 mls/hr IVPB DAILY [facility] Last Admin: 12/22/17 09:40 Dose: 200 mls/hr Lactulose (Cephulac (Oral Use)) 20 gm PO TID KAREN Last Admin: 12/23/17 06:43 Dose: 20 gm Midodrine (Proamatine -) 10 mg PO TID-MID [facility] Last Admin: 12/22/17 17:56 Dose: 10 mg Pantoprazole Sodium (Protonix Iv) 40 mg IVPUSH DAILY [facility] Last Admin: 12/22/17 09:45 Dose: 40 mg Phytonadione (Mephyton -) 5 mg PO DAILY [facility] Last Admin: 12/22/17 09:46 Dose: 5 mg - Objective Vital Signs: Vital Signs Temperature 98.6 F 12/23/17 06:00 Pulse Rate 79 12/23/17 06:00 Respiratory Rate 18 12/23/17 06:00 Blood Pressure 118/50 12/23/17 06:00 O2 Sat by Pulse Oximetry (%) 98 12/22/17 20:44 Constitutional: Yes: Well Nourished, No Distress HENT: Yes: WNL, Atraumatic Neck: Yes: WNL, Supple Cardiovascular: Yes: Regular Rate and Rhythm, S1, S2. No: Murmur Respiratory: Yes: WNL, Regular, CTA Bilaterally. No: Rales, Rhonchi Gastrointestinal: Yes: Soft. No: Tenderness Edema: No Labs: INR, PTT INR 2.45 (0.82-1.09) H 12/22/17 05:10 Assessment/Plan Laboratory Tests 12/22/17 12/23/17 05:10 06:15 WBC 3.8 L Pending Hgb 10.7 L Pending Plt Count 47 L D Pending Assessment Congestive heart failure HIV infection treated and undectable historically now off his meds Liver cirrhosis Enterococcal UTI Pancytopenia suspect cirrhosis related Plan Last dose of Ceftriaxone Oral Amoxicillin 7 days HIV meds held for now Jean Quinn MD
[2017-12-23 07:12] LABS: INR 2.38 (0.82-1.09); PROTHROMBIN TIME (PATIENT) 26.9 SEC (9.98-11.88)
[2017-12-23 07:18] LABS: ALBUMIN 2.9 g/dl (3.4-5.0); ALK PHOS 58 U/L (45-117); ANION GAP 7 (8-16); BILIRUBIN,TOTAL 5.6 mg/dL (0.2-1.0); BLOOD UREA NITROGEN 24 mg/dL (7-18); CALCIUM 7.5 mg/dL (8.5-10.1); CO2 35 mmol/L (21-32); CREATININE 1.2 mg/dL (0.7-1.3); GLUCOSE,RANDOM 100 mg/dL (74-106); MAGNESIUM 1.8 mg/dL (1.8-2.4); PHOSPHOROUS 1.8 mg/dL (2.5-4.9); SGOT/AST 81 U/L (15-37); SGPT/ALT 83 U/L (12-78); TOT PROT 6.2 g/dl (6.4-8.2)
[2017-12-23 07:31] LABS: POTASSIUM 2.8 mmol/L (3.5-5.1)
[2017-12-23] MEDS ORDERED: KCL 10 MEQ IVPB 10 MEQ/100 ML INFUS.BAG IVPB SCH (08:00)
--- NOTE | 2017-12-23 08:15 | PN ---
Progress Note, Physician History of Present Illness: Patient is improving. Great urine output Still on dobutamine and lasix ggt. Will likely transition off today. Very mild hemoptysis. Still having diarrhea, could be from meds - Current Medication List Current Medications: Active Medications Albuterol Sulfate (Ventolin 0.083% Nebulizer Soln -) 1 amp NEB Q4H PRN PRN Reason: SHORT OF BREATH/WHEEZING Amoxicillin (Amoxicillin -) 500 mg PO BID KAREN Last Admin: 12/22/17 21:14 Dose: 500 mg Furosemide 100 mg/ Sodium (Chloride) 100 mls @ 5 mls/hr IVPB TITR KAREN; 5 MG/HR PRN Reason: Protocol Last Admin: 12/22/17 22:43 Dose: 5 mg/hr, 5 mls/hr Dobutamine HCl/Dextrose (Dobutamine 250 Mg/D5w -) 250,000 mcg in 250 mls @ 66.678 mls/hr IV TITR KAREN PRN Reason: 10 MCG/KG/MIN Last Admin: 12/23/17 04:43 Dose: 10 mcg/kg/min, 66.678 mls/hr CEFTRIAXONE 1 G/50 ML PREMIX (Ceftriaxone 1 Gm-D5w Bag) 50 mls @ 200 mls/hr IVPB DAILY KAREN Stop: 12/23/17 12:00 Last Admin: 12/22/17 09:40 Dose: 200 mls/hr Potassium Phosphate 40 mm/ (Sodium Chloride) 263.3333 mls @ 62.5 mls/hr IVPB ONCE ONE Stop: 12/23/17 12:10 Lactulose (Cephulac (Oral Use)) 20 gm PO TID KAREN Last Admin: 12/23/17 06:43 Dose: 20 gm Midodrine (Proamatine -) 10 mg PO TID-MID KAREN Last Admin: 12/22/17 17:56 Dose: 10 mg Pantoprazole Sodium (Protonix Iv) 40 mg IVPUSH DAILY [facility] Last Admin: 12/22/17 09:45 Dose: 40 mg Phytonadione (Mephyton -) 5 mg PO DAILY KAREN Last Admin: 12/22/17 09:46 Dose: 5 mg - Objective Vital Signs: Vital Signs Temperature 98.6 F 12/23/17 06:00 Pulse Rate 79 12/23/17 06:00 Respiratory Rate 18 12/23/17 06:00 Blood Pressure 118/50 12/23/17 06:00 O2 Sat by Pulse Oximetry (%) 98 12/22/17 20:44 Additional Findings/Remarks: GEN: AAOx3, NAD, Lying comfortably HEENT: PERRLA, EOMi CV: S1, S2, RRR LUNG: CTABL ABD: Soft, NT, ND, normoactive BS MSK: No edema, no erythema NEURO: CN 2-12 intact Labs: CBC, BMP 12/23/17 06:15 12/23/17 06:15 INR, PTT INR 2.38 (0.82-1.09) H 12/23/17 06:15 Assessment/Plan 57yo with PMHx of Cirrhosis and TB (treated x1) presents with gross hemoptysis. In ICU after RR event. Was given IVF resuscitation leading to likely CHF exacerbation. # Renal: Acute Kidney Injury, Cardiorenal syndrome -- Creatinine now normalized w/ dobutamine and lasix ggt. -- Will take out central line, stop dobutamine, can switch to IV Lasix 60 BID and Hydralazine 25 TID # CV: CHF, Hx of HTN, Elevated troponins -- Starting Hydralazine 25TID for now for afterload reduction, will eventually switch to ACEi/ARB as per renal -- IV Lasix 60 BID for preload reduction # Pulm: Hemoptysis, Hx of TB -- Hemoptysis improving, only needs NC, GBM negative. # Heme: Thrombocytopenia, Coagulopathy -- s/p 1u PLT, which have improved since. Likely from hepatic dysfunction. -- Vitamin K daily for coagulopathy # GI: Hep C (untreated), Cirrhosis w/ portal HTN, Gallstones -- Poor liver function. Still on Midrodine 10 TID -- Consider referral to liver center # ID: Possible PNA, Hx of TB, HIV, +UTI -- Last day of Ceftriaxone. Will continue Amox 500 BID for additional 6 days for prostatitis. -- Last viral load undetectable. Hold HIV tx for now. # FEN/PPx -- Sodium controlled diet w/ 1.5L fluid restriction -- No heparin due to thrombocytopenia, only SCDs, GI ppx w/ protonix # Dispo -- Transfer to med/surg Nikki Monsivais MD PGY1 ICU Medicine
[2017-12-23] MEDS ORDERED: POTASSIUM PHOSPHATE 40 MM in SODIUM CHLORIDE 500 ML IVPB ONE (08:45)
[2017-12-23] MEDS ORDERED: PT OWN MED DRAWER 7, Y5N ONE ×5 (08:49→20:37)
[2017-12-23] MEDS: CEFTRIAXONE 1 G/50 ML PREMIX 50 ML IVPB SCH (09:35)
[2017-12-23] MEDS: PANTOPRAZOLE SODIUM 40 MG VIAL IVPUSH SCH (09:36)
[2017-12-23] MEDS: AMOXICILLIN 500 MG CAPSULE (FP) PO SCH ×2 (10:12→21:36)
[2017-12-23] MEDS: PHYTONADIONE 5 MG TABLET PO SCH (10:12)
[2017-12-23] MEDS: MIDODRINE HCL 5 MG TABLET PO SCH ×3 (10:12→18:45)
--- NOTE | 2017-12-23 10:51 | PN ---
Progress Note, Physician Chief Complaint: The patient seen in ICU. Doing much better. Hemodynamic status has improved significantly. On IV Lasix infusion with Dobutamine infusion. Urine output continues to be in large volume. - Current Medication List Current Medications: Active Medications Albuterol Sulfate (Ventolin 0.083% Nebulizer Soln -) 1 amp NEB Q4H PRN PRN Reason: SHORT OF BREATH/WHEEZING Amoxicillin (Amoxicillin -) 500 mg PO BID KAREN Last Admin: 12/23/17 10:12 Dose: 500 mg Furosemide 100 mg/ Sodium (Chloride) 100 mls @ 5 mls/hr IVPB TITR KAREN; 5 MG/HR PRN Reason: Protocol Last Admin: 12/22/17 22:43 Dose: 5 mg/hr, 5 mls/hr Dobutamine HCl/Dextrose (Dobutamine 250 Mg/D5w -) 250,000 mcg in 250 mls @ 66.678 mls/hr IV TITR KAREN PRN Reason: 10 MCG/KG/MIN Last Admin: 12/23/17 04:43 Dose: 10 mcg/kg/min, 66.678 mls/hr CEFTRIAXONE 1 G/50 ML PREMIX (Ceftriaxone 1 Gm-D5w Bag) 50 mls @ 200 mls/hr IVPB DAILY KAREN Stop: 12/23/17 12:00 Last Admin: 12/23/17 09:35 Dose: 200 mls/hr Potassium Phosphate 40 mm/ (Sodium Chloride) 513.3333 mls @ 85.556 mls/hr IVPB ONCE ONE Stop: 12/23/17 14:44 Last Admin: 12/23/17 09:52 Dose: 85.556 mls/hr Lactulose (Cephulac (Oral Use)) 20 gm PO TID KAREN Last Admin: 12/23/17 06:43 Dose: 20 gm Midodrine (Proamatine -) 10 mg PO TID-MID [facility] Last Admin: 12/23/17 10:12 Dose: 10 mg Pantoprazole Sodium (Protonix Iv) 40 mg IVPUSH DAILY [facility] Last Admin: 12/23/17 09:36 Dose: 40 mg Phytonadione (Mephyton -) 5 mg PO DAILY KAREN Last Admin: 12/23/17 10:12 Dose: 5 mg - Objective Vital Signs: Vital Signs Temperature 98.9 F 12/23/17 10:00 Pulse Rate 64 02/16/18 10:00 Respiratory Rate 16 12/23/17 10:00 Blood Pressure 116/62 12/23/17 10:00 O2 Sat by Pulse Oximetry (%) 98 12/23/17 09:00 Constitutional: Yes: No Distress Eyes: Yes: Conjunctiva Clear Cardiovascular: Yes: Regular Rate and Rhythm, S1, S2 Respiratory: Yes: CTA Bilaterally, Diminished Gastrointestinal: Yes: Normal Bowel Sounds, Soft Genitourinary: Yes: Alvarado Present Edema: No Labs: CBC, BMP 12/23/17 06:15 12/23/17 06:15 INR, PTT INR 2.38 (0.82-1.09) H 12/23/17 06:15 Problem List - Problems (1) Acute kidney failure Code(s): N17.9 - ACUTE KIDNEY FAILURE, UNSPECIFIED Qualifiers: Acute renal failure type: unspecified Qualified Code(s): N17.9 - Acute kidney failure, unspecified (2) Abdominal pain Code(s): R10.9 - UNSPECIFIED ABDOMINAL PAIN Qualifiers: Abdominal location: generalized Qualified Code(s): R10.84 - Generalized abdominal pain (3) Advanced cirrhosis of liver Code(s): K74.60 - UNSPECIFIED CIRRHOSIS OF LIVER (4) Asthma Code(s): J45.909 - UNSPECIFIED ASTHMA, UNCOMPLICATED Qualifiers: Asthma severity: unspecified severity Asthma persistence: unspecified Asthma complication type: unspecified Qualified Code(s): J45.909 - Unspecified asthma, uncomplicated (5) Cirrhosis Code(s): K74.60 - UNSPECIFIED CIRRHOSIS OF LIVER (6) H/O TB (tuberculosis) Code(s): Z86.11 - PERSONAL HISTORY OF TUBERCULOSIS (7) HIV (human immunodeficiency virus infection) Code(s): B20 - HUMAN IMMUNODEFICIENCY VIRUS [HIV] DISEASE (8) Pneumonia Code(s): J18.9 - PNEUMONIA, UNSPECIFIED ORGANISM (9) Hepatitis B Code(s): B19.10 - UNSPECIFIED VIRAL HEPATITIS B WITHOUT HEPATIC COMA (10) Hepatitis C Code(s): B19.20 - UNSPECIFIED VIRAL HEPATITIS C WITHOUT HEPATIC COMA Qualifiers: Viral hepatitis chronicity: chronic Hepatic coma status: without hepatic coma Qualified Code(s): B18.2 - Chronic viral hepatitis C Assessment/Plan This 57 year old male with a significant PMH of Br. Asthma, HTN, Cirrhosis, h/ o heroine abuse, TB x2, once treated 20 years ago and again in 2006. In 2006 he also had pleural effusion s/p CT placement with purulant TB drainage , he reports this happened while he was being treated for Hep C. The patient's Azotemia continues to improve, with improvement in Hemodynamic status. Today's Serum Creatinine is 1.2 Can D/C Lasix infusion, Dobutamine and Alvarado. Start Oral Lasix. Tendency for Hypokalemia, may be related to large K loss in the urine. Need large amounts of KCl and K Phos Will follow with you. Bhavna Adamson MD
[2017-12-23] MEDS ORDERED: POTASSIUM CHLORIDE 10 MEQ in SODIUM CHLORIDE 100 ML IVPB SCH (12:00)
--- NOTE | 2017-12-23 12:15 | PN ---
Teaching Attending Note Name of Resident: Nikki Monsivais ATTENDING PHYSICIAN STATEMENT I saw and evaluated the patient. I reviewed the resident's note and discussed the case with the resident. I agree with the resident's findings and plan as documented. SUBJECTIVE: Patient seen and examined in the ICU. Breathing continues to improve. Still with good urine output on dobutamine and lasix drips. No hemoptysis. OBJECTIVE: Intake & Output 12/20/17 12/21/17 12/22/17 12/23/17 23:59 23:59 23:59 23:59 Intake Total 1524.5 2608 4026 360 Output Total 7900 3800 9500 1500 Balance -6375.5 -1192 -5474 -1140 Weight 242 lb 4.608 oz 232 lb 3 oz 221 lb 4 oz 210 lb 6.4 oz Last Vital Signs Temp Pulse Resp BP Pulse Ox 98.9 F 64 16 116/62 96 12/23/17 10:00 12/23/17 10:00 12/23/17 10:00 12/23/17 10:00 12/23/17 10:00 Active Medications Albuterol Sulfate (Ventolin 0.083% Nebulizer Soln -) 1 amp NEB Q4H PRN PRN Reason: SHORT OF BREATH/WHEEZING Amoxicillin (Amoxicillin -) 500 mg PO BID KAREN Last Admin: 12/23/17 10:12 Dose: 500 mg Furosemide 100 mg/ Sodium (Chloride) 100 mls @ 5 mls/hr IVPB TITR KAREN; 5 MG/HR PRN Reason: Protocol Last Admin: 12/22/17 22:43 Dose: 5 mg/hr, 5 mls/hr Dobutamine HCl/Dextrose (Dobutamine 250 Mg/D5w -) 250,000 mcg in 250 mls @ 66.678 mls/hr IV TITR KAREN PRN Reason: 10 MCG/KG/MIN Last Admin: 12/23/17 04:43 Dose: 10 mcg/kg/min, 66.678 mls/hr Potassium Phosphate 40 mm/ (Sodium Chloride) 513.3333 mls @ 85.556 mls/hr IVPB ONCE ONE Stop: 12/23/17 14:44 Last Admin: 12/23/17 09:52 Dose: 85.556 mls/hr Potassium Chloride (Potassium Chloride 10 Meq Premix Ivpb -) 10 meq in 100 mls @ 100 mls/hr IVPB Q60M [facility] Stop: 12/23/17 13:59 Lactulose (Cephulac (Oral Use)) 20 gm PO TID [facility] Last Admin: 12/23/17 06:43 Dose: 20 gm Midodrine (Proamatine -) 10 mg PO TID-MID [facility] Last Admin: 12/23/17 10:12 Dose: 10 mg Pantoprazole Sodium (Protonix Iv) 40 mg IVPUSH DAILY [facility] Last Admin: 12/23/17 09:36 Dose: 40 mg Phytonadione (Mephyton -) 5 mg PO DAILY [facility] Last Admin: 12/23/17 10:12 Dose: 5 mg Gen: NAD Heart: RRR Lung: decreased breath sounds at the bases Abd: soft, nontender Ext: no edema Laboratory Results - last 24 hr 12/19/17 12/20/17 12/23/17 06:40 05:55 06:15 WBC 4.9 RBC 3.39 L Hgb 12.5 D Hct 36.3 D MCV 107.0 H MCH 36.8 H MCHC 34.4 RDW 14.5 Plt Count 61 L D MPV 9.9 PT with INR INR Sodium Potassium Chloride Carbon Dioxide Anion Gap BUN Creatinine Creat Clearance w eGFR Random Glucose Calcium Phosphorus Magnesium Total Bilirubin AST ALT Alkaline Phosphatase Myoglobin 266 H Total Protein Albumin Urine Eosinophils None seen Urine Myoglobin TNP Glomerular Base Memb Ab 3 12/23/17 12/23/17 06:15 06:15 WBC RBC Hgb Hct MCV MCH MCHC RDW Plt Count MPV PT with INR 26.90 H INR 2.38 H Sodium 138 Potassium 2.8 L* Chloride 96 L Carbon Dioxide 35 H Anion Gap 7 L BUN 24 H D Creatinine 1.2 D Creat Clearance w eGFR > 60 Random Glucose 100 D Calcium 7.5 L Phosphorus 1.8 L D Magnesium 1.8 Total Bilirubin 5.6 H AST 81 H ALT 83 H Alkaline Phosphatase 58 D Myoglobin Total Protein 6.2 L Albumin 2.9 L Urine Eosinophils Urine Myoglobin Glomerular Base Memb Ab ASSESSMENT AND PLAN: Acute on Chronic Systolic/Diastolic Heart Failure Atrial Fibrillation with RVR Acute Kidney Injury r/o Cardiorenal Syndrome r/o Hepatorenal Syndrome although less likely the acute issue currently Hemoptysis r/o Pneumonia HIV Hep C Liver Cirrhosis Coagulopathy Thromobocytopenia Lactic Acidosis +Troponins likely Demand Ischemia - D/C dobutamine and Lasix drips - Midodrine per Renal - monitor urine output, creatinine - daily weights, I/Os - replete lytes - D/C IV ABX - monitor hemoptysis - PO Lasix - (?) Start GALILEO or ARB - PO as tolerated - taper FiO2 to keep SpO2 >90% - inhaled bronchodilators as needed - DVT/GI prophylaxis - Cardiac Telemetry monitoring Dr Rushing Critical care time spent in reviewing chart, evaluating patient and formulating plan 35 min
[2017-12-23] MEDS: FUROSEMIDE 40 MG/4 ML INJECTABLE VIAL IVPUSH SCH (13:22)
--- NOTE | 2017-12-23 13:48 | PN ---
Progress Note, Physician Chief Complaint: Feels well Good urine output Cr improving History of Present Illness: Mr. Wagner is a 57 year old male with a pmhx of asthma, HIV, htn, cirrhosis, IVDU, ?TB, h/o pleural effusion s/p chest tube in 2005 who presents with hemoptysis for [address] chest with liver cirrhosis, spleenomegaly, and extensive upper abdominal varices along with b/l pleural effusions. Echocardiogram with severe global LV hypokinesis. EKG with afib which is now converted back to sinus. Developed worsening sob yesterday in the setting of AI and minimal urine output. Was started on dobutamine and vasopressin and with improvement in urine output and sob. - Current Medication List Current Medications: Active Medications Albuterol Sulfate (Ventolin 0.083% Nebulizer Soln -) 1 amp NEB Q4H PRN PRN Reason: SHORT OF BREATH/WHEEZING Amoxicillin (Amoxicillin -) 500 mg PO BID [facility] Last Admin: 12/23/17 10:12 Dose: 500 mg Furosemide (Lasix Injection -) 60 mg IVPUSH BID@0600,1400 [facility] Last Admin: 12/23/17 13:22 Dose: 60 mg Hydralazine HCl (Apresoline -) 25 mg PO TID [facility] Potassium Phosphate 40 mm/ (Sodium Chloride) 513.3333 mls @ 85.556 mls/hr IVPB ONCE ONE Stop: 12/23/17 14:44 Last Admin: 12/23/17 09:52 Dose: 85.556 mls/hr Lactulose (Cephulac (Oral Use)) 20 gm PO TID [facility] Last Admin: 12/23/17 13:22 Dose: 20 gm Midodrine (Proamatine -) 10 mg PO TID-MID [facility] Last Admin: 12/23/17 13:21 Dose: 10 mg Pantoprazole Sodium (Protonix Iv) 40 mg IVPUSH DAILY [facility] Last Admin: 12/23/17 09:36 Dose: 40 mg Phytonadione (Mephyton -) 5 mg PO DAILY [facility] Last Admin: 12/23/17 10:12 Dose: 5 mg - Objective Vital Signs: Vital Signs Temperature 98.9 F 12/23/17 10:00 Pulse Rate 61 12/23/17 12:33 Respiratory Rate 16 12/23/17 12:33 Blood Pressure 105/46 12/23/17 12:33 O2 Sat by Pulse Oximetry (%) 96 12/23/17 10:00 Constitutional: Yes: No Distress Cardiovascular: Yes: Regular Rate and Rhythm, JVD, S1, S2 Respiratory: Yes: CTA Bilaterally Gastrointestinal: Yes: Soft Edema: No Labs: CBC, BMP 12/23/17 06:15 12/23/17 06:15 INR, PTT INR 2.38 (0.82-1.09) H 12/23/17 06:15 Problem List - Problems (1) Atrial fibrillation Code(s): I48.91 - UNSPECIFIED ATRIAL FIBRILLATION Assessment/Plan Mr. Wagner is a 57 year old male with a pmhx of asthma, htn, cirrhosis, IVDU, ? TB, h/o pleural effusion s/p chest tube in 2005 who presents with hemoptysis for [address] chest with liver cirrhosis, spleenomegaly, and extensive upper abdominal varices along with b/l pleural effusions. Echocardiogram with severe global LV hypokinesis. EKG with afib which is now converted back to sinus. Developed worsening sob yesterday in the setting of XUAN and minimal urine output. Was started on dobutamine and vasopressin and with improvement in urine output and sob. -XUAN in setting of systolic CHF and cirrhosis putting out good urine with improvement in renal function with dobutamine and lasix drip Stopping dobutamine today as well as lasix IV drip. Would likely benefit from afterload tissue technician and bblocker. If renal team prefers not to start aubrie-i given recent XUAN would than start hydralazine 25mg q8hrs. Start on furosemide 40mg PO BID. Monitor I/O's Monitor Lytes. K is low needs repletion and follow up labs tonight -Afib- currently in sinus rhythm. Anticoagulation currently on hold as per primary team given risk of bleeding in patient with thrombocytopenia, varices, and hemoptysis -ID- Abx as per ID team.
[2017-12-23 14:19] LABS: ABS.CD19+ LYMPH 119 /uL (12-645); HEMATOCRIT 29.6 % (37.5-51.0); HEMOGLOBIN 10.3 g/dL (13.0-17.7); LYMPHS (ABSOLUTE) 0.5 x10E3/uL (0.7-3.1); MCH 35.4 pg (26.6-33.0); MCHC 34.8 g/dL (31.5-35.7); MONOCYTES (ABSOLUTE) 0.6 x10E3/uL (0.1-0.9); PLATELET COUNT 46 x10E3/uL (150-379); RBC 2.91 x10E6/uL (4.14-5.80); RDW 14.7 % (12.3-15.4); WHITE BLOOD COUNT 3.9 x10E3/uL (3.4-10.8)
[2017-12-23] MEDS: hydrALAZINE HCL 25 MG TABLET (FP) PO SCH ×2 (16:17→21:36)
--- NOTE | 2017-12-23 18:01 | PN ---
Progress Note (short form) - Note Progress Note: Subjective: The patient was seen and examined at the bedside, he has no complaints at this time. Current Medications Generic Name Dose Route Start Last Admin Trade Name Freq PRN Reason Stop Dose Admin Albuterol Sulfate 1 amp 12/16/17 17:44 Ventolin 0.083% Nebulizer Soln - NEB Q4H PRN SHORT OF BREATH/WHEEZING Amoxicillin 500 mg 12/22/17 10:00 12/22/17 09:38 Amoxicillin - PO 500 mg BID KAREN Administration Furosemide 100 mg/ Sodium 100 mls @ 5 mls/hr 12/20/17 02:00 12/22/17 03:20 Chloride IVPB 5 mg/hr TITR KAREN 5 mls/hr Protocol Administration 5 MG/HR Dobutamine HCl/Dextrose 250,000 mcg in 250 mls @ 66.678 mls/hr 12/20/17 05:50 12/22/17 11:48 Dobutamine 250 Mg/D5w - IV 10 mcg/kg/min TITR KAREN 66.678 mls/hr 10 MCG/KG/MIN Administration CEFTRIAXONE 1 G/50 ML PREMIX 50 mls @ 200 mls/hr 12/21/17 10:00 12/22/17 09: 40 Ceftriaxone 1 Gm-D5w Bag IVPB 200 mls/hr DAILY KAREN Administration Potassium Chloride 10 meq/ 105 mls @ 105 mls/hr 12/22/17 14:15 Sodium Chloride IVPB 12/22/17 17:14 Q60M KAREN Lactulose 20 gm 12/19/17 14:00 12/22/17 14:06 Cephulac (Oral Use) PO 20 gm TID KAREN Administration Midodrine 10 mg 12/20/17 14:00 12/22/17 14:08 Proamatine - PO 10 mg TID-MID KAREN Administration Pantoprazole Sodium 40 mg 12/20/17 10:00 12/22/17 09:45 Protonix Iv IVPUSH 40 mg DAILY [facility]EN Administration Phytonadione 5 mg 12/22/17 10:00 12/22/17 09:46 Mephyton - PO 5 mg DAILY [facility] Administration Objective: Vital Signs Period Temp Pulse Resp BP Sys/Martinez Pulse Ox Last 24 Hr 98.2 F-98.8 F 62-86 13-22 107-164/43-74 97-97 Physical Exam: Patient refused stating he was sleeping and doesn't "want to be bothered" CBCD WBC 3.8 K/mm3 (4.0-10.0) L 12/22/17 05:10 RBC 2.88 M/mm3 (4.00-5.60) L 12/22/17 05:10 Hgb 10.7 GM/dL (11.7-16.9) L 12/22/17 05:10 Hct 30.8 % (35.4-49) L 12/22/17 05:10 MCV 106.7 fl (80-96) H 12/22/17 05:10 MCHC 34.8 g/dl (32.0-35.9) 12/22/17 05:10 RDW 15.1 % (11.9-15.9) 12/22/17 05:10 Plt Count 47 K/MM3 (134-434) L D 12/22/17 05:10 MPV 9.4 fl (7.5-11.1) 12/22/17 05:10 CMP Sodium 139 mmol/L (136-145) 12/22/17 05:10 Potassium 3.0 mmol/L (3.5-5.1) L 12/22/17 05:10 Chloride 98 mmol/L (98-107) 12/22/17 05:10 Carbon Dioxide 33 mmol/L (21-32) H 12/22/17 05:10 Anion Gap 8 (8-16) 12/22/17 05:10 BUN 46 mg/dL (7-18) H D 12/22/17 05:10 Creatinine 1.8 mg/dL (0.7-1.3) H D 12/22/17 05:10 Creat Clearance w eGFR 39.23 (>60) 12/22/17 05:10 Random Glucose 133 mg/dL (74-106) H 12/22/17 05:10 Calcium 7.8 mg/dL (8.5-10.1) L 12/22/17 05:10 Total Bilirubin 5.3 mg/dL (0.2-1.0) H 12/22/17 05:10 AST 97 U/L (15-37) H 12/22/17 05:10 ALT 90 U/L (12-78) H 12/22/17 05:10 Alkaline Phosphatase 44 U/L (45-117) L 12/22/17 05:10 Total Protein 6.4 g/dl (6.4-8.2) 12/22/17 05:10 Albumin 3.0 g/dl (3.4-5.0) L 12/22/17 05:10 CARDIAC ENZYMES Creatine Kinase 174 IU/L (39-308) 12/19/17 06:40 Troponin I 0.22 ng/ml (0.00-0.05) H 12/20/17 05:55 Microbiology 12/20/17 06:00 Sputum - Expectorated AFB Smear Concentration - Preliminary 12/20/17 06:00 Sputum - Expectorated Direct Acid Fast Bacilli Smear - Final 12/20/17 06:00 Sputum - Expectorated Mycobacterial Culture - Preliminary 12/16/17 16:37 Blood - Peripheral Venous Blood Culture - Final NO GROWTH AFTER 5 DAYS INCUBATION 12/16/17 16:37 Blood - Peripheral Venous Blood Culture - Final NO GROWTH AFTER 5 DAYS INCUBATION 12/17/17 15:20 Sputum - Expectorated AFB Smear Concentration - Final 12/17/17 15:20 Sputum - Expectorated Direct Acid Fast Bacilli Smear - Final 12/17/17 15:20 Sputum - Expectorated Mycobacterial Culture - Preliminary 12/17/17 00:00 Sputum - Expectorated AFB Smear Concentration - Final 12/17/17 00:00 Sputum - Expectorated Direct Acid Fast Bacilli Smear - Final 12/17/17 00:00 Sputum - Expectorated Mycobacterial Culture - Preliminary 12/16/17 17:10 Urine - Urine Clean Catch Urine Culture - Final Enterococcus Faecalis 12/17/17 00:00 Sputum - Expectorated AFB Smear Concentration - Preliminary 12/17/17 00:00 Sputum - Expectorated Direct Acid Fast Bacilli Smear - Final 12/17/17 00:00 Sputum - Expectorated Mycobacterial Culture - Preliminary 12/16/17 17:10 Urine For Antigen Detection Legionella Antigen - Final 12/16/17 17:10 Urine For Antigen Detection Streptococcus pneumoniae Antigen (M - Final Assessment: This is a 57 year old male with PMHx of HTN, asthma, cirrhosis, HCV s/p failed Harvoni treatment, HIV, former IVDU who presented to the ED with hemoptysis and shortness of breath Plan: 1) XUAN in the setting of acute severe systolic heart failure - Urine output so far today 4.5L - Continue
[2017-12-24 06:03] LABS: HEMATOCRIT 40.5 % (35.4-49); MCHC 34.6 g/dl (32.0-35.9); MEAN CELL VOLUME 106.9 fl (80-96); MEAN PLT VOLUME 10.7 fl (7.5-11.1); PLATELET COUNT 74 K/MM3 (134-434); RBC 3.79 M/mm3 (4.00-5.60); RDW 15.1 % (11.9-15.9); WHITE BLOOD COUNT 8.5 K/mm3 (4.0-10.0)
[2017-12-24 06:28] LABS: ALBUMIN 2.9 g/dl (3.4-5.0); ANION GAP 4 (8-16); BLOOD UREA NITROGEN 19 mg/dL (7-18); CALCIUM 7.8 mg/dL (8.5-10.1); CHLORIDE 95 mmol/L (98-107); CO2 37 mmol/L (21-32); CREATININE 1.3 mg/dL (0.7-1.3); GLUCOSE,RANDOM 121 mg/dL (74-106); MAGNESIUM 1.9 mg/dL (1.8-2.4); POTASSIUM 3.1 mmol/L (3.5-5.1); SGOT/AST 83 U/L (15-37); SGPT/ALT 87 U/L (12-78); SODIUM 136 mmol/L (136-145)
--- NOTE | 2017-12-24 06:28 | PN ---
Progress Note, Physician Chief Complaint: ID Off Dobutamine Currently on oral antibiotics for urinary tract infection Off his retrovirals due to recent changes in renal function and liver function - Current Medication List Current Medications: Active Medications Albuterol Sulfate (Ventolin 0.083% Nebulizer Soln -) 1 amp NEB Q4H PRN PRN Reason: SHORT OF BREATH/WHEEZING Amoxicillin (Amoxicillin -) 500 mg PO BID [facility] Last Admin: 12/23/17 21:36 Dose: 500 mg Furosemide (Lasix Injection -) 60 mg IVPUSH BID@0600,1400 [facility] Last Admin: 12/23/17 13:22 Dose: 60 mg Hydralazine HCl (Apresoline -) 25 mg PO TID [facility] Last Admin: 12/23/17 21:36 Dose: 25 mg Lactulose (Cephulac (Oral Use)) 20 gm PO TID [facility] Last Admin: 12/23/17 21:36 Dose: 20 gm Midodrine (Proamatine -) 10 mg PO TID-MID [facility] Last Admin: 12/23/17 18:45 Dose: 10 mg Pantoprazole Sodium (Protonix Iv) 40 mg IVPUSH DAILY [facility] Last Admin: 12/23/17 09:36 Dose: 40 mg Phytonadione (Mephyton -) 5 mg PO DAILY [facility] Last Admin: 12/23/17 10:12 Dose: 5 mg - Objective Vital Signs: Vital Signs Temperature 98.4 F 12/24/17 02:00 Pulse Rate 61 12/24/17 02:00 Respiratory Rate 16 12/24/17 02:00 Blood Pressure 128/75 12/24/17 02:00 O2 Sat by Pulse Oximetry (%) 98 12/23/17 22:00 Constitutional: Yes: Well Nourished, No Distress Cardiovascular: Yes: Regular Rate and Rhythm, Murmur, S1, S2, Other (Grade 3 systolic murmur LSB) Respiratory: Yes: WNL, Regular, CTA Bilaterally Gastrointestinal: Yes: Normal Bowel Sounds, Soft. No: Tenderness Edema: No Labs: INR, PTT INR 2.38 (0.82-1.09) H 12/23/17 06:15 Assessment/Plan Laboratory Tests 12/23/17 12/23/17 12/24/17 06:15 06:15 05:00 WBC 4.9 Pending Hgb 12.5 D Pending Hct Pending Plt Count 61 L D Pending BUN 24 H D Creatinine 1.2 D 12/24/17 05:00 WBC Hgb Hct Plt Count BUN Pending Creatinine Pending Assessment From ID standpoint he is off his ART. His kidney function is improving and he could resume his old regimen Hopefully he could take his own medications or wait until he see his own HIV provider. Finish the Amoxicillin for UTI. Feel free to call me with any further questions Cheyenne ROLLE
[2017-12-24 06:29] LABS: ALK PHOS 123 U/L (45-117); BILIRUBIN,TOTAL 3.5 mg/dL (0.2-1.0); TOT PROT 6.3 g/dl (6.4-8.2)
[2017-12-24] MEDS: LACTULOSE 20 GM/30 ML UDC (FOR ORAL USE ONLY) PO SCH ×3 (06:52→21:42)
[2017-12-24] MEDS: FUROSEMIDE 40 MG/4 ML INJECTABLE VIAL IVPUSH SCH ×2 (06:52→13:50)
[2017-12-24] MEDS: hydrALAZINE HCL 25 MG TABLET (FP) PO SCH ×3 (06:52→21:42)
--- NOTE | 2017-12-24 09:10 | PN ---
Progress Note (short form) - Note Progress Note: Patient seen and examined in the ICU. Overall feels better. Denies CP or SOB. No hemoptysis. OBJECTIVE: Intake & Output 12/21/17 12/22/17 12/23/17 12/24/17 23:59 23:59 23:59 23:59 Intake Total 2608 4026 1832 600 Output Total 3800 9500 2700 Balance -1192 -5474 -868 600 Weight 232 lb 3 oz 221 lb 4 oz 210 lb 6.4 oz Last Vital Signs Temp Pulse Resp BP Pulse Ox 98.4 F 61 16 128/75 98 12/24/17 02:00 12/24/17 02:00 12/24/17 02:00 12/24/17 02:00 12/23/17 22:00 Active Medications Albuterol Sulfate (Ventolin 0.083% Nebulizer Soln -) 1 amp NEB Q4H PRN PRN Reason: SHORT OF BREATH/WHEEZING Amoxicillin (Amoxicillin -) 500 mg PO BID [facility] Last Admin: 12/23/17 21:36 Dose: 500 mg Furosemide (Lasix Injection -) 60 mg IVPUSH BID@0600,1400 [facility] Last Admin: 12/24/17 06:52 Dose: 60 mg Hydralazine HCl (Apresoline -) 25 mg PO TID [facility] Last Admin: 12/24/17 06:52 Dose: 25 mg Lactulose (Cephulac (Oral Use)) 20 gm PO TID [facility] Last Admin: 12/24/17 06:52 Dose: 20 gm Midodrine (Proamatine -) 10 mg PO TID-MID [facility] Last Admin: 12/23/17 18:45 Dose: 10 mg Pantoprazole Sodium (Protonix Iv) 40 mg IVPUSH DAILY [facility] Last Admin: 12/23/17 09:36 Dose: 40 mg Phytonadione (Mephyton -) 5 mg PO DAILY [facility] Last Admin: 12/23/17 10:12 Dose: 5 mg Gen: NAD Heart: RRR Lung: decreased breath sounds at the bases Abd: soft, nontender Ext: no edema Laboratory Results - last 24 hr 12/19/17 12/22/17 12/23/17 06:40 05:10 14:55 WBC 3.9 RBC 2.91 L Hgb 10.3 L Hct 29.6 L MCV 102.0 H MCH 35.4 H MCHC 34.8 RDW 14.7 Plt Count 46 L MPV Neutrophils % 68.0 Lymphocytes % 12.0 Monocytes % 15.0 Eosinophils % 0.0 Basophils % 0.0 Absolute Lymphocytes 0.5 L Nucleated RBCs TNP Sodium Potassium 3.8 D Chloride Carbon Dioxide Anion Gap BUN Creatinine Creat Clearance w eGFR Random Glucose Calcium Phosphorus Magnesium Total Bilirubin AST ALT Alkaline Phosphatase Total Protein Albumin Urine Myoglobin <2 12/24/17 12/24/17 05:00 05:00 WBC 8.5 D RBC 3.79 L Hgb 14.0 D Hct 40.5 MCV 106.9 H MCH 37.0 H MCHC 34.6 RDW 15.1 Plt Count 74 L D MPV 10.7 Neutrophils % Lymphocytes % Monocytes % Eosinophils % Basophils % Absolute Lymphocytes Nucleated RBCs Sodium 136 Potassium 3.1 L Chloride 95 L Carbon Dioxide 37 H Anion Gap 4 L BUN 19 H D Creatinine 1.3 Creat Clearance w eGFR 57.10 Random Glucose 121 H D Calcium 7.8 L Phosphorus 2.0 L Magnesium 1.9 Total Bilirubin 3.5 H D AST 83 H ALT 87 H Alkaline Phosphatase 123 H D Total Protein 6.3 L Albumin 2.9 L Urine Myoglobin ASSESSMENT AND PLAN: Acute on Chronic Systolic/Diastolic Heart Failure Atrial Fibrillation with RVR Acute Kidney Injury r/o Cardiorenal Syndrome r/o Hepatorenal Syndrome although less likely the acute issue currently Hemoptysis r/o Pneumonia HIV Hep C Liver Cirrhosis Coagulopathy Thromobocytopenia Lactic Acidosis +Troponins likely Demand Ischemia - Monitor off dobutamine and Lasix drips - Midodrine per Renal - monitor urine output, creatinine - daily weights, I/Os - replete lytes - D/C IV ABX - monitor hemoptysis - IV Lasix - (?) Start GALILEO or ARB - PO as tolerated - O2 to maintain saturation - inhaled bronchodilators as needed - DVT/GI prophylaxis - Cardiac Telemetry monitoring Dr Rushing Critical care time spent in reviewing chart, evaluating patient and formulating plan 35 min
[2017-12-24] MEDS ORDERED: PT OWN MED DRAWER 7, Y5N ONE ×3 (10:08→21:10)
[2017-12-24] MEDS: PANTOPRAZOLE SODIUM 40 MG VIAL IVPUSH SCH (10:09)
[2017-12-24] MEDS: PHYTONADIONE 5 MG TABLET PO SCH (10:10)
[2017-12-24] MEDS: AMOXICILLIN 500 MG CAPSULE (FP) PO SCH ×2 (10:11→21:42)
[2017-12-24] MEDS: MIDODRINE HCL 5 MG TABLET PO SCH ×3 (10:11→18:18)
[2017-12-24] MEDS ORDERED: POTASSIUM CHLORIDE TABS 20 MEQ TABLET.ER (FP) PO ONE (10:30)
--- NOTE | 2017-12-24 13:44 | PN ---
Progress Note, Physician Chief Complaint: Shortness of breath History of Present Illness: The patient is breathing much better. He is off dobutamine. Denies chest pains and shortness of breath. - Current Medication List Current Medications: Active Medications Albuterol Sulfate (Ventolin 0.083% Nebulizer Soln -) 1 amp NEB Q4H PRN PRN Reason: SHORT OF BREATH/WHEEZING Amoxicillin (Amoxicillin -) 500 mg PO BID [facility] Last Admin: 12/24/17 10:11 Dose: 500 mg Furosemide (Lasix Injection -) 60 mg IVPUSH BID@0600,1400 [facility] Last Admin: 12/24/17 06:52 Dose: 60 mg Hydralazine HCl (Apresoline -) 25 mg PO TID [facility] Last Admin: 12/24/17 06:52 Dose: 25 mg Lactulose (Cephulac (Oral Use)) 20 gm PO TID [facility] Last Admin: 12/24/17 06:52 Dose: 20 gm Midodrine (Proamatine -) 10 mg PO TID-MID [facility] Last Admin: 12/24/17 10:11 Dose: 10 mg Pantoprazole Sodium (Protonix Iv) 40 mg IVPUSH DAILY [facility] Last Admin: 12/24/17 10:09 Dose: 40 mg Phytonadione (Mephyton -) 5 mg PO DAILY [facility] Last Admin: 12/24/17 10:10 Dose: 5 mg - Objective Vital Signs: Vital Signs Temperature 98.4 F 12/24/17 02:00 Pulse Rate 62 12/24/17 08:00 Respiratory Rate 16 12/24/17 08:00 Blood Pressure 118/65 12/24/17 08:00 O2 Sat by Pulse Oximetry (%) 98 12/24/17 10:00 Constitutional: Yes: Well Nourished, No Distress, Calm Eyes: Yes: WNL, Conjunctiva Clear HENT: Yes: WNL, Atraumatic, Normocephalic Neck: Yes: WNL, Supple, Trachea Midline Cardiovascular: Yes: WNL, Regular Rate and Rhythm, S1, S2 Respiratory: Yes: WNL, Regular, CTA Bilaterally Gastrointestinal: Yes: WNL, Normal Bowel Sounds, Soft ...Rectal Exam: Yes: Deferred Genitourinary: Yes: WNL Breast(s): Yes: WNL Musculoskeletal: Yes: WNL Extremities: Yes: WNL Edema: No Peripheral Pulses WNL: Yes Peripheral Pulses: Left Radial: 2+, Right Radial: 2+, Left Doralis Pedis: 2+, Right Dorsalis Pedis: 2+, Left Femoral: 2+, Right Femoral: 2+ Integumentary: Yes: WNL Neurological: Yes: WNL, Alert, Oriented ...Motor Strength: WNL Psychiatric: Yes: WNL Labs: CBC, BMP 12/24/17 05:00 12/24/17 05:00 INR, PTT INR 2.38 (0.82-1.09) H 12/23/17 06:15 Assessment/Plan The patient is responding well to diuretics. Dobutamine was discontinued. Lung exam is normal. The patient is clinically better and breathing normally. May switch Lasix to 60 mg by mouth twice daily. Strict salt and fluid restrictions. Please remove all fluids and ice cubes from the bedside. There is no need for further cardiac workup at this point. Continue the other medications as currently. Please do not hesitate to call us PRN
--- NOTE | 2017-12-24 14:11 | PN ---
Progress Note (short form) - Note Progress Note: Subjective: The patient was seen and examined at the bedside, he has no complaints at this time. Current Medications Generic Name Dose Route Start Last Admin Trade Name Freq PRN Reason Stop Dose Admin Albuterol Sulfate 1 amp 12/16/17 17:44 Ventolin 0.083% Nebulizer Soln - NEB Q4H PRN SHORT OF BREATH/WHEEZING Amoxicillin 500 mg 12/22/17 10:00 12/24/17 10:11 Amoxicillin - PO 500 mg BID KAREN Administration Furosemide 60 mg 12/23/17 14:00 12/24/17 13:50 Lasix Injection - IVPUSH 60 mg BID@0600,1400 KAREN Administration Hydralazine HCl 25 mg 12/23/17 14:00 12/24/17 13:50 Apresoline - PO 25 mg TID KAREN Administration Lactulose 20 gm 12/19/17 14:00 12/24/17 13:50 Cephulac (Oral Use) PO 20 gm TID KAREN Administration Midodrine 10 mg 12/20/17 14:00 12/24/17 13:50 Proamatine - PO 10 mg TID-MID KAREN Administration Pantoprazole Sodium 40 mg 12/20/17 10:00 12/24/17 10:09 Protonix Iv IVPUSH 40 mg DAILY KAREN Administration Phytonadione 5 mg 12/22/17 10:00 12/24/17 10:10 Mephyton - PO 5 mg DAILY KAREN Administration Objective: Vital Signs Period Temp Pulse Resp BP Sys/Martinez Pulse Ox Last 24 Hr 98.0 F-99.1 F 61-72 16-20 118-133/54-79 98-98 Physical Exam: General: NAD Lungs: Decreased breath sounds b/l Heart: RRR, S1S2 Abd: Soft, non-tender, non-distended. Normoactive bowel sounds Ext: No edema CBCD WBC 8.5 K/mm3 (4.0-10.0) D 12/24/17 05:00 RBC 3.79 M/mm3 (4.00-5.60) L 12/24/17 05:00 Hgb 14.0 GM/dL (11.7-16.9) D 12/24/17 05:00 Hct 40.5 % (35.4-49) 12/24/17 05:00 MCV 106.9 fl (80-96) H 12/24/17 05:00 MCHC 34.6 g/dl (32.0-35.9) 12/24/17 05:00 RDW 15.1 % (11.9-15.9) 12/24/17 05:00 Plt Count 74 K/MM3 (134-434) L D 12/24/17 05:00 MPV 10.7 fl (7.5-11.1) 12/24/17 05:00 CMP Sodium 136 mmol/L (136-145) 12/24/17 05:00 Potassium 3.1 mmol/L (3.5-5.1) L 12/24/17 05:00 Chloride 95 mmol/L (98-107) L 12/24/17 05:00 Carbon Dioxide 37 mmol/L (21-32) H 12/24/17 05:00 Anion Gap 4 (8-16) L 12/24/17 05:00 BUN 19 mg/dL (7-18) H D 12/24/17 05:00 Creatinine 1.3 mg/dL (0.7-1.3) 12/24/17 05:00 Creat Clearance w eGFR 57.10 (>60) 12/24/17 05:00 Random Glucose 121 mg/dL (74-106) H D 12/24/17 05:00 Calcium 7.8 mg/dL (8.5-10.1) L 12/24/17 05:00 Total Bilirubin 3.5 mg/dL (0.2-1.0) H D 12/24/17 05:00 AST 83 U/L (15-37) H 12/24/17 05:00 ALT 87 U/L (12-78) H 12/24/17 05:00 Alkaline Phosphatase 123 U/L (45-117) H D 12/24/17 05:00 Total Protein 6.3 g/dl (6.4-8.2) L 12/24/17 05:00 Albumin 2.9 g/dl (3.4-5.0) L 12/24/17 05:00 CARDIAC ENZYMES Creatine Kinase 174 IU/L (39-308) 12/19/17 06:40 Troponin I 0.22 ng/ml (0.00-0.05) H 12/20/17 05:55 Microbiology 12/21/17 13:40 Sputum - Expectorated Gram Stain - Final 12/21/17 13:40 Sputum - Expectorated Sputum Culture - Final Yeast Like Organism 12/20/17 06:00 Sputum - Expectorated AFB Smear Concentration - Final 12/20/17 06:00 Sputum - Expectorated Direct Acid Fast Bacilli Smear - Final 12/20/17 06:00 Sputum - Expectorated Mycobacterial Culture - Preliminary 12/16/17 16:37 Blood - Peripheral Venous Blood Culture - Final NO GROWTH AFTER 5 DAYS INCUBATION 12/16/17 16:37 Blood - Peripheral Venous Blood Culture - Final NO GROWTH AFTER 5 DAYS INCUBATION 12/17/17 15:20 Sputum - Expectorated AFB Smear Concentration - Final 12/17/17 15:20 Sputum - Expectorated Direct Acid Fast Bacilli Smear - Final 12/17/17 15:20 Sputum - Expectorated Mycobacterial Culture - Preliminary 12/17/17 00:00 Sputum - Expectorated AFB Smear Concentration - Final 12/17/17 00:00 Sputum - Expectorated Direct Acid Fast Bacilli Smear - Final 12/17/17 00:00 Sputum - Expectorated Mycobacterial Culture - Preliminary 12/16/17 17:10 Urine - Urine Clean Catch Urine Culture - Final Enterococcus Faecalis 12/17/17 00:00 Sputum - Expectorated AFB Smear Concentration - Preliminary 12/17/17 00:00 Sputum - Expectorated Direct Acid Fast Bacilli Smear - Final 12/17/17 00:00 Sputum - Expectorated Mycobacterial Culture - Preliminary 12/16/17 17:10 Urine For Antigen Detection Legionella Antigen - Final 12/16/17 17:10 Urine For Antigen Detection Streptococcus pneumoniae Antigen (M - Final Assessment: This is a 57 year old male with PMHx of HTN, asthma, cirrhosis, HCV s/p failed Harvoni treatment, HIV, former IVDU who presented to the ED with hemoptysis and shortness of breath Plan: 1) XUAN in the setting of acute severe systolic heart failure - Urine output so far today 4.5L - Continue
--- NOTE | 2017-12-24 23:41 | PN ---
Progress Note (short form) - Note Progress Note: This 57 year old male with a significant PMH of Br. 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 XUAN s/p Lasix infusion, Dobutamine Hypokalemia, Current Medications Amoxicillin (Amoxicillin -) 500 mg PO BID [facility] Last Admin: 12/24/17 21:42 Dose: 500 mg Furosemide (Lasix Injection -) 60 mg IVPUSH BID@0600,1400 [facility] Last Admin: 12/24/17 13:50 Dose: 60 mg Hydralazine HCl (Apresoline -) 25 mg PO TID [facility] Last Admin: 12/24/17 21:42 Dose: 25 mg Lactulose (Cephulac (Oral Use)) 20 gm PO TID [facility] Last Admin: 12/24/17 21:42 Dose: 20 gm Midodrine (Proamatine -) 10 mg PO TID-MID [facility] Last Admin: 12/24/17 18:18 Dose: 10 mg Pantoprazole Sodium (Protonix Iv) 40 mg IVPUSH DAILY [facility] Last Admin: 12/24/17 10:09 Dose: 40 mg Phytonadione (Mephyton -) 5 mg PO DAILY [facility] Last Admin: 12/24/17 10:10 Dose: 5 mg Last Vital Signs Temp Pulse Resp BP Pulse Ox 98.2 F 61 16 130/82 99 12/24/17 17:56 12/24/17 17:56 12/24/17 20:43 12/24/17 17:56 12/24/17 20:52 CBC, BMP 12/24/17 05:00 12/24/17 05:00
[2017-12-25] MEDS: FUROSEMIDE 40 MG/4 ML INJECTABLE VIAL IVPUSH SCH ×2 (06:10→13:45)
[2017-12-25] MEDS: hydrALAZINE HCL 25 MG TABLET (FP) PO SCH ×3 (06:10→22:31)
[2017-12-25] MEDS: LACTULOSE 20 GM/30 ML UDC (FOR ORAL USE ONLY) PO SCH ×3 (06:10→22:31)
[2017-12-25 07:06] LABS: ALBUMIN 2.8 g/dl (3.4-5.0); ANION GAP 6 (8-16); BLOOD UREA NITROGEN 23 mg/dL (7-18); CALCIUM 8.1 mg/dL (8.5-10.1); CHLORIDE 96 mmol/L (98-107); CO2 35 mmol/L (21-32); GLUCOSE,RANDOM 76 mg/dL (74-106); MAGNESIUM 1.8 mg/dL (1.8-2.4); POTASSIUM 3.5 mmol/L (3.5-5.1); SODIUM 137 mmol/L (136-145)
[2017-12-25 07:12] LABS: ALK PHOS 121 U/L (45-117); BILIRUBIN,TOTAL 4.1 mg/dL (0.2-1.0); CREATININE 1.4 mg/dL (0.7-1.3); PHOSPHOROUS 3.2 mg/dL (2.5-4.9); SGOT/AST 79 U/L (15-37); SGPT/ALT 83 U/L (12-78); TOT PROT 6.1 g/dl (6.4-8.2)
[2017-12-25] MEDS: PHYTONADIONE 5 MG TABLET PO SCH (09:13)
[2017-12-25] MEDS: AMOXICILLIN 500 MG CAPSULE (FP) PO SCH ×2 (09:13→22:31)
[2017-12-25] MEDS: PANTOPRAZOLE SODIUM 40 MG VIAL IVPUSH SCH (09:14)
[2017-12-25] MEDS: MIDODRINE HCL 5 MG TABLET PO SCH ×3 (09:14→20:25)
--- NOTE | 2017-12-25 09:27 | PN ---
Progress Note (short form) - Note Progress Note: Patient seen and examined in the ICU. Overall feels better. Denies CP or SOB. No hemoptysis. OBJECTIVE: Intake & Output 12/22/17 12/23/17 12/24/17 12/25/17 23:59 23:59 23:59 23:59 Intake Total 4026 1832 1980 16 Output Total 9500 2700 200 Balance -5474 -868 1780 16 Weight 221 lb 4 oz 210 lb 6.4 oz Last Vital Signs Temp Pulse Resp BP Pulse Ox 98.0 F 78 18 125/73 99 12/25/17 06:00 12/25/17 09:25 12/25/17 09:25 12/25/17 09:25 12/24/17 20:52 Active Medications Amoxicillin (Amoxicillin -) 500 mg PO BID [facility] Last Admin: 12/25/17 09:13 Dose: 500 mg Furosemide (Lasix Injection -) 60 mg IVPUSH BID@0600,1400 [facility] Last Admin: 12/25/17 06:10 Dose: 60 mg Hydralazine HCl (Apresoline -) 25 mg PO TID [facility] Last Admin: 12/25/17 06:10 Dose: 25 mg Lactulose (Cephulac (Oral Use)) 20 gm PO TID [facility] Last Admin: 12/25/17 06:10 Dose: 20 gm Midodrine (Proamatine -) 10 mg PO TID-MID [facility] Last Admin: 12/25/17 09:14 Dose: 10 mg Pantoprazole Sodium (Protonix Iv) 40 mg IVPUSH DAILY [facility] Last Admin: 12/25/17 09:14 Dose: 40 mg Phytonadione (Mephyton -) 5 mg PO DAILY [facility] Last Admin: 12/25/17 09:13 Dose: 5 mg Gen: NAD Heart: RRR Lung: decreased breath sounds at the bases Abd: soft, nontender Ext: no edema Laboratory Results - last 24 hr 12/25/17 05:27 Sodium 137 Potassium 3.5 Chloride 96 L Carbon Dioxide 35 H Anion Gap 6 L BUN 23 H D Creatinine 1.4 H Creat Clearance w eGFR 52.42 Random Glucose 76 D Calcium 8.1 L Phosphorus 3.2 D Magnesium 1.8 Total Bilirubin 4.1 H AST 79 H ALT 83 H Alkaline Phosphatase 121 H Total Protein 6.1 L Albumin 2.8 L ASSESSMENT AND PLAN: Acute on Chronic Systolic/Diastolic Heart Failure Atrial Fibrillation with RVR Acute Kidney Injury r/o Cardiorenal Syndrome r/o Hepatorenal Syndrome although less likely the acute issue currently Hemoptysis r/o Pneumonia HIV Hep C Liver Cirrhosis Coagulopathy Thromobocytopenia Lactic Acidosis +Troponins likely Demand Ischemia - Midodrine per Renal - monitor urine output, creatinine - daily weights, I/Os - replete lytes - Amoxicillin per ID - monitor hemoptysis - (?) Start GALILEO or ARB - PO as tolerated - O2 to maintain saturation - inhaled bronchodilators as needed - DVT/GI prophylaxis - Cardiac Telemetry monitoring Dr Rushing Critical care time spent in reviewing chart, evaluating patient and formulating plan 36 min
--- NOTE | 2017-12-25 19:46 | PN ---
Progress Note (short form) - Note Progress Note: Subjective: The patient was seen and examined at the bedside, he has no complaints at this time. Current Medications Generic Name Dose Route Start Last Admin Trade Name Freq PRN Reason Stop Dose Admin Albuterol Sulfate 1 amp 12/16/17 17:44 Ventolin 0.083% Nebulizer Soln - NEB Q4H PRN SHORT OF BREATH/WHEEZING Amoxicillin 500 mg 12/22/17 10:00 12/22/17 09:38 Amoxicillin - PO 500 mg BID KAREN Administration Furosemide 100 mg/ Sodium 100 mls @ 5 mls/hr 12/20/17 02:00 12/22/17 03:20 Chloride IVPB 5 mg/hr TITR KAREN 5 mls/hr Protocol Administration 5 MG/HR Dobutamine HCl/Dextrose 250,000 mcg in 250 mls @ 66.678 mls/hr 12/20/17 05:50 12/22/17 11:48 Dobutamine 250 Mg/D5w - IV 10 mcg/kg/min TITR KAREN 66.678 mls/hr 10 MCG/KG/MIN Administration CEFTRIAXONE 1 G/50 ML PREMIX 50 mls @ 200 mls/hr 12/21/17 10:00 12/22/17 09: 40 Ceftriaxone 1 Gm-D5w Bag IVPB 200 mls/hr DAILY KAREN Administration Potassium Chloride 10 meq/ 105 mls @ 105 mls/hr 12/22/17 14:15 Sodium Chloride IVPB 12/22/17 17:14 Q60M KAREN Lactulose 20 gm 12/19/17 14:00 12/22/17 14:06 Cephulac (Oral Use) PO 20 gm TID KAREN Administration Midodrine 10 mg 12/20/17 14:00 12/22/17 14:08 Proamatine - PO 10 mg TID-MID KAREN Administration Pantoprazole Sodium 40 mg 12/20/17 10:00 12/22/17 09:45 Protonix Iv IVPUSH 40 mg DAILY KAREN Administration Phytonadione 5 mg 12/22/17 10:00 12/22/17 09:46 Mephyton - PO 5 mg DAILY KAREN Administration Objective: Vital Signs Period Temp Pulse Resp BP Sys/Martinez Pulse Ox Last 24 Hr 98.2 F-98.8 F 62-86 13-22 107-164/43-74 97-97 Physical Exam: General: NAD Lungs: Decreased breath sounds b/l Heart: RRR, S1S2 Abd: Soft, non-tender Ext: No edema b/l CBCD WBC 8.5 K/mm3 (4.0-10.0) D 12/24/17 05:00 RBC 3.79 M/mm3 (4.00-5.60) L 12/24/17 05:00 Hgb 14.0 GM/dL (11.7-16.9) D 12/24/17 05:00 Hct 40.5 % (35.4-49) 12/24/17 05:00 MCV 106.9 fl (80-96) H 12/24/17 05:00 MCHC 34.6 g/dl (32.0-35.9) 12/24/17 05:00 RDW 15.1 % (11.9-15.9) 12/24/17 05:00 Plt Count 74 K/MM3 (134-434) L D 12/24/17 05:00 MPV 10.7 fl (7.5-11.1) 12/24/17 05:00 CMP Sodium 137 mmol/L (136-145) 12/25/17 05:27 Potassium 3.5 mmol/L (3.5-5.1) 12/25/17 05:27 Chloride 96 mmol/L (98-107) L 12/25/17 05:27 Carbon Dioxide 35 mmol/L (21-32) H 12/25/17 05:27 Anion Gap 6 (8-16) L 12/25/17 05:27 BUN 23 mg/dL (7-18) H D 12/25/17 05:27 Creatinine 1.4 mg/dL (0.7-1.3) H 12/25/17 05:27 Creat Clearance w eGFR 52.42 (>60) 12/25/17 05:27 Random Glucose 76 mg/dL (74-106) D 12/25/17 05:27 Calcium 8.1 mg/dL (8.5-10.1) L 12/25/17 05:27 Total Bilirubin 4.1 mg/dL (0.2-1.0) H 12/25/17 05:27 AST 79 U/L (15-37) H 12/25/17 05:27 ALT 83 U/L (12-78) H 12/25/17 05:27 Alkaline Phosphatase 121 U/L (45-117) H 12/25/17 05:27 Total Protein 6.1 g/dl (6.4-8.2) L 12/25/17 05:27 Albumin 2.8 g/dl (3.4-5.0) L 12/25/17 05:27 CARDIAC ENZYMES Creatine Kinase 174 IU/L (39-308) 12/19/17 06:40 Troponin I 0.22 ng/ml (0.00-0.05) H 12/20/17 05:55 Microbiology 12/21/17 13:40 Sputum - Expectorated Gram Stain - Final 12/21/17 13:40 Sputum - Expectorated Sputum Culture - Final Yeast Like Organism 12/20/17 06:00 Sputum - Expectorated AFB Smear Concentration - Final 12/20/17 06:00 Sputum - Expectorated Direct Acid Fast Bacilli Smear - Final 12/20/17 06:00 Sputum - Expectorated Mycobacterial Culture - Preliminary 12/16/17 16:37 Blood - Peripheral Venous Blood Culture - Final NO GROWTH AFTER 5 DAYS INCUBATION 12/16/17 16:37 Blood - Peripheral Venous Blood Culture - Final NO GROWTH AFTER 5 DAYS INCUBATION 12/17/17 15:20 Sputum - Expectorated AFB Smear Concentration - Final 12/17/17 15:20 Sputum - Expectorated Direct Acid Fast Bacilli Smear - Final 12/17/17 15:20 Sputum - Expectorated Mycobacterial Culture - Preliminary 12/17/17 00:00 Sputum - Expectorated AFB Smear Concentration - Final 12/17/17 00:00 Sputum - Expectorated Direct Acid Fast Bacilli Smear - Final 12/17/17 00:00 Sputum - Expectorated Mycobacterial Culture - Preliminary 12/16/17 17:10 Urine - Urine Clean Catch Urine Culture - Final Enterococcus Faecalis 12/17/17 00:00 Sputum - Expectorated AFB Smear Concentration - Preliminary 12/17/17 00:00 Sputum - Expectorated Direct Acid Fast Bacilli Smear - Final 12/17/17 00:00 Sputum - Expectorated Mycobacterial Culture - Preliminary 12/16/17 17:10 Urine For Antigen Detection Legionella Antigen - Final 12/16/17 17:10 Urine For Antigen Detection Streptococcus pneumoniae Antigen (M - Final Assessment: This is a 57 year old male with PMHx of HTN, asthma, cirrhosis, HCV s/p failed Harvoni treatment, HIV, former IVDU who presented to the ED with hemoptysis and shortness of breath Plan: 1) XUAN in the setting of acute severe systolic heart failure - Continue Lasix 60mg IVP bid - Continue Midodrine - Strict I&O - Daily weight - Appreciate nephrology consult 2) Acute on chronic systolic/diastolic heart failure - Continue Lasix as above - Strict I&O - 12/19 Echo: LV severely reduced, severe global hypokinesis, moderate cLVH; RV "appears diminished"; LA severely dilated, RA moderately dilated; mild MR; mild PI; moderate aortic root dilatation, mildly dilated ascending aorta (4.1cm) - Appreciate cardiology consult 3) A.fib - Converted back to sinus rhythm 4) HCV cirrhosis, portal HTN, abdominal varices - Now off octreotide gtt - No ascites - Continue Protonix - Continue Lactulose - Appreciate GI consult 5) Metabolic encephalopathy 2/2 - Mental status improving 6) Hemoptysis - Resolved - Ruled out for Tb: 4 sputum for AFB are negative 7) Enterococcus faecalis uti - Continue Amoxicillin - Appreciate ID consult 8) HIV - F/u CD4 count - Hold off on HIV medications for now per ID 9) Abdominal pain - CTAP reviewed - F/u GI for further recommendations 10) F/E/N: - Sodium controlled diet with fluid restriction - Monitor electrolytes 11) Prophylaxis: - Hold all chemical DVT prophylaxis 2/2 thrombocytopenia 12) Dispo: - Requires continued ICU care CODE STATUS: FULL CODE Visit type - Emergency Visit Emergency Visit: Yes ED Registration Date: 12/16/17 Care time: The patient presented to the Emergency Department on the above date and was hospitalized for further evaluation of their emergent condition. - New Patient This patient is new to me today: No - Critical Care Critical Care patient: No
--- NOTE | 2017-12-25 20:37 | PN ---
Progress Note (short form) - Note Progress Note: This 57 year old male with a significant PMH of Br. 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 XUAN s/p Lasix infusion, Dobutamine Hypokalemia, Current Medications Amoxicillin (Amoxicillin -) 500 mg PO BID KAREN Stop: 12/29/17 21:59 Furosemide (Lasix Injection -) 60 mg IVPUSH BID@0600,1400 KAREN Hydralazine HCl (Apresoline -) 25 mg PO TID KAREN Lactulose (Cephulac (Oral Use)) 20 gm PO TID KAREN Midodrine (Proamatine -) 10 mg PO TID-MID KAREN Pantoprazole Sodium (Protonix Iv) 40 mg IVPUSH DAILY KAREN Phytonadione (Mephyton -) 5 mg PO DAILY KAREN Last Vital Signs Temp Pulse Resp BP Pulse Ox 98.7 F 67 18 119/66 99 12/25/17 18:00 12/25/17 18:00 12/25/17 18:00 12/25/17 18:00 12/25/17 10:00 lungs clear heart reg abd soft nontender ext no edema CBC, BMP 12/24/17 05:00 12/25/17 05:27 IMP-s/p xuan resolving azotemia fluctuating prob 2/2 fluid status Plan- encourage hydration
[2017-12-26] MEDS ORDERED: FUROSEMIDE 40 MG/4 ML INJECTABLE VIAL IVPUSH SCH (06:00)
[2017-12-26] MEDS: hydrALAZINE HCL 25 MG TABLET (FP) PO SCH ×3 (06:50→21:51)
[2017-12-26] MEDS: LACTULOSE 20 GM/30 ML UDC (FOR ORAL USE ONLY) PO SCH ×3 (06:50→21:51)
[2017-12-26 08:29] LABS: BASO % 0.4 % (0-2.0); EOS % 2.3 % (0-4.5); HEMATOCRIT 40.5 % (35.4-49); HEMOGLOBIN 13.8 GM/dL (11.7-16.9); LYMPH % 12.7 % (8-40); MCH 36.2 pg (25.7-33.7); MCHC 34.2 g/dl (32.0-35.9); MEAN PLT VOLUME 10.5 fl (7.5-11.1); MONO % 12.1 % (3.8-10.2); NEUT % 72.5 % (42.8-82.8); PLATELET COUNT 63 K/MM3 (134-434); RBC 3.82 M/mm3 (4.00-5.60)
[2017-12-26 08:55] LABS: ALBUMIN 2.9 g/dl (3.4-5.0); ALK PHOS 116 U/L (45-117); ANION GAP 8 (8-16); BILIRUBIN,TOTAL 4.5 mg/dL (0.2-1.0); BLOOD UREA NITROGEN 23 mg/dL (7-18); CALCIUM 8.6 mg/dL (8.5-10.1); CHLORIDE 95 mmol/L (98-107); CO2 33 mmol/L (21-32); CREATININE 1.4 mg/dL (0.7-1.3); GLUCOSE,RANDOM 120 mg/dL (74-106); POTASSIUM 3.3 mmol/L (3.5-5.1); SGOT/AST 90 U/L (15-37); SGPT/ALT 85 U/L (12-78); SODIUM 136 mmol/L (136-145); TOT PROT 6.7 g/dl (6.4-8.2)
[2017-12-26] MEDS ORDERED: PT OWN MED DRAWER 7, Y5N ONE (10:30)
[2017-12-26] MEDS: PHYTONADIONE 5 MG TABLET PO SCH (10:34)
[2017-12-26] MEDS: MIDODRINE HCL 5 MG TABLET PO SCH ×3 (10:34→18:47)
[2017-12-26] MEDS: AMOXICILLIN 500 MG CAPSULE (FP) PO SCH ×2 (10:34→21:52)
[2017-12-26] MEDS: PANTOPRAZOLE SODIUM 40 MG VIAL IVPUSH SCH (11:35)
[2017-12-26] MEDS ORDERED: POTASSIUM CHLORIDE TABS 20 MEQ TABLET.ER (FP) PO ONE ×2 (12:45→16:30)
--- NOTE | 2017-12-26 14:44 | PN ---
Progress Note, Physician History of Present Illness: PULMONARY ALERT,OOB-CHAIR COMFORTABLE,-RESP DISTRESS,-HEMOPTYSIS - Current Medication List Current Medications: Active Medications Amoxicillin (Amoxicillin -) 500 mg PO BID [facility] Stop: 12/29/17 21:59 Last Admin: 12/26/17 10:34 Dose: 500 mg Furosemide (Lasix Injection -) 60 mg IVPUSH BID@0600,1400 [facility] Last Admin: 12/26/17 06:50 Dose: 60 mg Hydralazine HCl (Apresoline -) 25 mg PO TID [facility] Last Admin: 12/26/17 06:50 Dose: 25 mg Lactulose (Cephulac (Oral Use)) 20 gm PO TID [facility] Last Admin: 12/26/17 06:50 Dose: 20 gm Midodrine (Proamatine -) 10 mg PO TID-MID [facility] Last Admin: 12/26/17 10:34 Dose: 10 mg Pantoprazole Sodium (Protonix Iv) 40 mg IVPUSH DAILY [facility] Last Admin: 12/26/17 11:35 Dose: 40 mg Phytonadione (Mephyton -) 5 mg PO DAILY [facility] Last Admin: 12/26/17 10:34 Dose: 5 mg - Objective Vital Signs: Vital Signs Temperature 98.8 F 12/26/17 06:00 Pulse Rate 76 12/26/17 06:00 Respiratory Rate 18 12/26/17 06:00 Blood Pressure 128/68 12/26/17 06:00 O2 Sat by Pulse Oximetry (%) 99 12/25/17 21:00 Constitutional: Yes: Well Nourished, Calm Eyes: Yes: WNL Neck: Yes: WNL Cardiovascular: Yes: Pulse Irregular, S1, S2 Respiratory: Yes: Diminished Gastrointestinal: Yes: Normal Bowel Sounds, Soft Extremities: Yes: WNL Edema: No Labs: CBC, BMP 12/26/17 08:10 12/26/17 08:10 INR, PTT INR 2.38 (0.82-1.09) H 12/23/17 06:15 Problem List - Problems (1) Hemoptysis Code(s): R04.2 - HEMOPTYSIS (2) Hepatitis C Code(s): B19.20 - UNSPECIFIED VIRAL HEPATITIS C WITHOUT HEPATIC COMA Qualifiers: Viral hepatitis chronicity: chronic Hepatic coma status: without hepatic coma Qualified Code(s): B18.2 - Chronic viral hepatitis C (3) Pneumonia Code(s): J18.9 - PNEUMONIA, UNSPECIFIED ORGANISM (4) Cirrhosis Code(s): K74.60 - UNSPECIFIED CIRRHOSIS OF LIVER (5) H/O TB (tuberculosis) Code(s): Z86.11 - PERSONAL HISTORY OF TUBERCULOSIS (6) Coagulopathy Code(s): D68.9 - COAGULATION DEFECT, UNSPECIFIED (7) Acute on chronic diastolic CHF (congestive heart failure), NYHA class 4 Code(s): I50.33 - ACUTE ON CHRONIC DIASTOLIC (CONGESTIVE) HEART FAILURE (8) HIV (human immunodeficiency virus infection) Code(s): B20 - HUMAN IMMUNODEFICIENCY VIRUS [HIV] DISEASE Assessment/Plan IMP ACUTE ON CHRONIC SYSTOLIC CHF HEMOPTYSIS RESOLVED HEP C CIRRHOSIS ASTHMA H/O TB ? H/O HIV AFIB PLAN INHALED BRONCHODILATORS LASIX O2 PRN IVF MONITOR INR,PLT CT MONITOR LYTES,RENAL FUNCTION F/U CHEST X-RAYS DR MENA
--- NOTE | 2017-12-26 16:20 | PN ---
Progress Note (short form) - Note Progress Note: Renal follow up for XUAN Pt seen and examined at the bedside awake and alert no acute complaints denies any sob, chest pain, abd pain making urine Vital Signs Temperature 98.7 F 12/26/17 15:01 Pulse Rate 75 12/26/17 15:01 Respiratory Rate 18 12/26/17 15:01 Blood Pressure 152/83 12/26/17 15:01 O2 Sat by Pulse Oximetry (%) 99 12/25/17 21:00 Intake & Output 12/23/17 12/24/17 12/25/17 12/26/17 23:59 23:59 23:59 23:59 Intake Total 1832 1980 1516 250 Output Total 2700 200 650 Balance -868 1780 1516 -400 Weight 95.436 kg 97.069 kg NAD RRR Course BS soft, obese Abd Trace to 1+ edema in LE CBC, BMP 12/26/17 08:10 12/26/17 08:10 Current Medications Amoxicillin (Amoxicillin -) 500 mg PO BID [facility] Stop: 12/29/17 21:59 Last Admin: 12/26/17 10:34 Dose: 500 mg Furosemide (Lasix -) 80 mg PO BID@0600,1400 [facility] Hydralazine HCl (Apresoline -) 25 mg PO TID [facility] Last Admin: 12/26/17 06:50 Dose: 25 mg Lactulose (Cephulac (Oral Use)) 20 gm PO TID [facility] Last Admin: 12/26/17 06:50 Dose: 20 gm Midodrine (Proamatine -) 10 mg PO TID-MID [facility] Last Admin: 12/26/17 10:34 Dose: 10 mg Pantoprazole Sodium (Protonix Iv) 40 mg IVPUSH DAILY [facility] Last Admin: 12/26/17 11:35 Dose: 40 mg Phytonadione (Mephyton -) 5 mg PO DAILY [facility] Last Admin: 12/26/17 10:34 Dose: 5 mg 57 year old gentleman with PMhx of [place], Pulmonary Tb s/p tx who presented with hemoptysis and developed XUAN. #Acute Renal Failure secondary to Cardio-Renal Syndrome vs. Hepato-renal syndrome Renal function significantly improved pt is non-oliguric and appears evolemic at the present time change Lasix to PO 80mg BID hold midodrine for now keep MAP > 65 no indication for [employer] would not start GALILEO/ARB at this time discharge planning as per primary Osman Reid DO
--- NOTE | 2017-12-26 17:29 | PN ---
Physical Exam: SUBJECTIVE: Patient seen and examined at the bedside. Denies any shortness of breath, denies pain. OBJECTIVE: Vital Signs Period Temp Pulse Resp BP Sys/Martinez Pulse Ox Last 24 Hr 98.7 F-98.8 F 67-76 18-18 119-152/66-83 99 GENERAL: The patient is awake, alert, and fully oriented, in no acute distress. HEAD: Normal with no signs of trauma. EYES: PERRL, extraocular movements intact, sclera anicteric, conjunctiva clear. No ptosis. ENT: Ears normal, nares patent, oropharynx clear without exudates, moist mucous membranes. NECK: Trachea midline, full range of motion, supple. LUNGS: Breath sounds equal, clear to auscultation bilaterally, no wheezes, no crackles, no accessory muscle use. ABDOMEN: Soft, nontender, nondistended, normoactive bowel sounds, no guarding, no rebound, no hepatosplenomegaly, no masses. EXTREMITIES: 2+ pulses, warm, well-perfused, no edema. NEUROLOGICAL: Normal speech, gait not observed. PSYCH: Normal mood, normal affect. SKIN: Warm, dry, normal turgor, no rashes or lesions noted Laboratory Results - last 24 hr 12/26/17 12/26/17 12/26/17 08:10 08:10 08:10 WBC 9.0 RBC 3.82 L Hgb 13.8 Hct 40.5 MCV 106.0 H MCH 36.2 H MCHC 34.2 RDW 15.0 Plt Count 63 L MPV 10.5 Neutrophils % 72.5 Lymphocytes % 12.7 D Monocytes % 12.1 H Eosinophils % 2.3 Basophils % 0.4 Sodium 136 Potassium 3.3 L Chloride 95 L Carbon Dioxide 33 H Anion Gap 8 BUN 23 H Creatinine 1.4 H Creat Clearance w eGFR 52.42 Random Glucose 120 H D Calcium 8.6 Total Bilirubin 4.5 H AST 90 H ALT 85 H Alkaline Phosphatase 116 Ammonia 69.50 H Total Protein 6.7 Albumin 2.9 L Active Medications Generic Name Dose Route Start Last Admin Trade Name Freq PRN Reason Stop Dose Admin Amoxicillin 500 mg 12/25/17 22:00 12/26/17 10:34 Amoxicillin - PO 12/29/17 21:59 500 mg BID KAREN Administration Furosemide 80 mg 12/27/17 06:00 Lasix - PO BID@0600,1400 KAREN Hydralazine HCl 25 mg 12/25/17 22:00 12/26/17 16:35 Apresoline - PO 25 mg TID KAREN Administration Lactulose 20 gm 12/25/17 22:00 12/26/17 16:35 Cephulac (Oral Use) PO 20 gm TID KAREN Administration Midodrine 10 mg 12/25/17 18:00 12/26/17 16:35 Proamatine - PO 10 mg TID-MID KAREN Administration Pantoprazole Sodium 40 mg 12/26/17 10:00 12/26/17 11:35 Protonix Iv IVPUSH 40 mg DAILY KAREN Administration Phytonadione 5 mg 12/26/17 10:00 12/26/17 10:34 Mephyton - PO 5 mg DAILY KAREN Administration Potassium Chloride 40 meq 12/27/17 10:00 K-Dur - PO DAILY KAREN ASSESSMENT/PLAN: Patient is a 57 year old male with a significant past medical history of hypertension, asthma, cirrhosis, HCV, HIV, hx of iv drug use. He presented to the ED on 12/16/2017 with hemoptysis and shortness of breath. Pulmonary: Asthma, chronic Pneumonia, resolvong Hemoptysis, resolved Shortness of breath, resolved Patient is tolerating room air No c/o of shortness of breath, discomfort On Lasix 80mg BID Renal: XUAN, improving Lasix changed to 80mg BID Hold Midodrine as per renal Renal following : UTI, acute Enterococcus faecalis uti Continue Amoxiciliin until 12/29/2017 as per ID Cardiology: Acute severe systolic heart failure On Lasix PO BID Echo reviewed Prox afib Anticoagulation currently on hold secondary to risk of bleeding due to thrombocytopenia, varicies. His hemoptysis has resolved Cardiology follow up piror to discharge GI: HCV cirrhosis, portal HTN, abdominal varices On protonix, Laculose GI following Neuro: Metabolic encephalopathy, resolved Mental status at baseline ID: HIV Hold off on HIV medications for now per ID F.E.N. Fluids: tolerating PO Electrolytes: monitor Nutrition: regular diet Prophy: SCDs, Protonix
[2017-12-27] MEDS ORDERED: FUROSEMIDE 40 MG TABLET (FP) PO SCH (06:00)
[2017-12-27] MEDS: hydrALAZINE HCL 25 MG TABLET (FP) PO SCH (06:30)
[2017-12-27] MEDS: LACTULOSE 20 GM/30 ML UDC (FOR ORAL USE ONLY) PO SCH (06:30)
[2017-12-27] MEDS ORDERED: POTASSIUM CHLORIDE TABS 20 MEQ TABLET.ER (FP) PO SCH (10:00)
[2017-12-27 10:14] LABS: BASO % 0.2 % (0-2.0); EOS % 1.3 % (0-4.5); HEMATOCRIT 36.9 % (35.4-49); HEMOGLOBIN 12.6 GM/dL (11.7-16.9); MCH 36.4 pg (25.7-33.7); MCHC 34.3 g/dl (32.0-35.9); MEAN CELL VOLUME 106.3 fl (80-96); MEAN PLT VOLUME 10.3 fl (7.5-11.1); MONO % 13.2 % (3.8-10.2); NEUT % 74.3 % (42.8-82.8); PLATELET COUNT 58 K/MM3 (134-434); RBC 3.47 M/mm3 (4.00-5.60); RDW 14.8 % (11.9-15.9)
[2017-12-27] MEDS ORDERED: PT OWN MED DRAWER 7, Y5N ONE (10:15)
[2017-12-27] MEDS: PANTOPRAZOLE SODIUM 40 MG VIAL IVPUSH SCH (10:18)
[2017-12-27] MEDS: AMOXICILLIN 500 MG CAPSULE (FP) PO SCH (10:19)
[2017-12-27] MEDS: PHYTONADIONE 5 MG TABLET PO SCH (10:19)
[2017-12-27] MEDS: MIDODRINE HCL 5 MG TABLET PO SCH (10:19)
[2017-12-27 10:27] LABS: ALBUMIN 2.8 g/dl (3.4-5.0); ANION GAP 8 (8-16); BILIRUBIN,TOTAL 3.3 mg/dL (0.2-1.0); BLOOD UREA NITROGEN 21 mg/dL (7-18); CALCIUM 7.8 mg/dL (8.5-10.1); CHLORIDE 97 mmol/L (98-107); CO2 31 mmol/L (21-32); CREATININE 1.4 mg/dL (0.7-1.3); GLUCOSE,RANDOM 149 mg/dL (74-106); MAGNESIUM 1.8 mg/dL (1.8-2.4); POTASSIUM 3.3 mmol/L (3.5-5.1); SGOT/AST 100 U/L (15-37); SGPT/ALT 78 U/L (12-78); SODIUM 136 mmol/L (136-145); TOT PROT 6.2 g/dl (6.4-8.2)
[2017-12-27 10:28] LABS: ALK PHOS 113 U/L (45-117)
--- NOTE | 2017-12-27 11:27 | DS ---
Physical Exam: SUBJECTIVE: Patient seen and examined OBJECTIVE: Vital Signs Period Temp Pulse Resp BP Sys/Martinez Pulse Ox Last 24 Hr 98.5 F-98.8 F 68-76 18-18 121-152/66-83 96 PHYSICAL EXAM GENERAL: The patient is awake, alert, and fully oriented, in no acute distress. HEAD: Normal with no signs of trauma. EYES: PERRL, extraocular movements intact, sclera anicteric, conjunctiva clear. ENT: Ears normal, nares patent, oropharynx clear without exudates, moist mucous membranes. NECK: Trachea midline, full range of motion, supple. LUNGS: Breath sounds equal, clear to auscultation bilaterally, no wheezes, no crackles, no accessory muscle use. HEART: Regular rate and rhythm, S1, S2 without murmur, rub or gallop. ABDOMEN: Soft, nontender, nondistended, normoactive bowel sounds, no guarding, no rebound, no hepatosplenomegaly, no masses. EXTREMITIES: 2+ pulses, warm, well-perfused, no edema. NEUROLOGICAL: Cranial nerves II through XII grossly intact. Normal speech, gait not observed. PSYCH: Normal mood, normal affect. SKIN: Warm, dry, normal turgor, no rashes or lesions noted. LABS Laboratory Results - last 24 hr 12/20/17 12/27/17 12/27/17 23:00 09:45 09:45 WBC 7.0 RBC 3.47 L Hgb 12.6 Hct 36.9 MCV 106.3 H MCH 36.4 H MCHC 34.3 RDW 14.8 Plt Count 58 L MPV 10.3 Neutrophils % 74.3 Lymphocytes % 11.0 Monocytes % 13.2 H Eosinophils % 1.3 Basophils % 0.2 Sodium 136 Potassium 3.3 L Chloride 97 L Carbon Dioxide 31 Anion Gap 8 BUN 21 H Creatinine 1.4 H Creat Clearance w eGFR 52.42 Random Glucose 149 H D Calcium 7.8 L Magnesium 1.8 Total Bilirubin 3.3 H D AST 100 H ALT 78 Alkaline Phosphatase 113 Total Protein 6.2 L Albumin 2.8 L HCV Quantitation [id number] HCV RNA PCR log picture copyist/ml 4.531 HOSPITAL COURSE: Date of Admission:12/16/17 Date of Discharge: 12/27/17 Discharge Summary Reason For Visit: ASTHMA,PNEUMONIA Current Active Problems Abdominal pain (Acute) Acute kidney failure (Acute) Acute on chronic diastolic CHF (congestive heart failure), NYHA class 4 (Acute) Advanced cirrhosis of liver (Acute) Asthma (Acute) Asthma exacerbation (Acute) Atrial fibrillation (Acute) Calculus of gallbladder without cholecystitis without obstruction (Acute) Cirrhosis (Acute) Coagulopathy (Acute) H/O TB (tuberculosis) (Acute) HIV (human immunodeficiency virus infection) (Acute) Hemoptysis (Acute) Pneumonia (Acute) Pneumonia (Acute) Portal hypertension (Acute) Condition: Stable - Instructions Diet, Activity, Other Instructions: Mr. Wagner: As discussed please see your primary care physician tomorrow for continued follow up for your medications. As you stated, you have an appointment on January 05 with your liver specialist. Please continue your home medications as ordered on discharge instructions. hold midodrine for now. Amoxcillin is an antibiotic prescribed for you for your urinary tract infection. Please take twice per day until 12/30/2017 I am available if you have any questions, concerns. Christin Olive[facility] @ [facility] [phone] Referrals: ON STAFF,NOT [Non Staff, Medical] - Disposition: HOME - Home Medications Comprehensive Discharge Medication List: Ambulatory Orders Ledipasvir/Sofosbuvir [Harvoni 90-400 mg Tablet] 1 each PO DAILY 03/10/16 Emtricitab/Rilpiviri/Tenof Ala [Odefsey Tablet] 1 each PO DAILY 12/17/17 Amoxicillin - [Amoxicillin 500mg Capsule -] 500 mg PO BID #8 capsule 12/27/17 Furosemide [Lasix] 80 mg PO BID #60 tablet 12/27/17 Lactulose (Oral Use) [Cephulac -] 20 gm PO TID #1 bottle 12/27/17 Phytonadione [Mephyton -] 5 mg PO DAILY #30 tablet 12/27/17 Potassium Chloride [K-Dur -] 40 meq PO DAILY #60 tablet.er 12/27/17 hydrALAZINE HCL [Apresoline -] 25 mg PO TID #90 tablet 12/27/17
--- NOTE | 2017-12-27 11:31 | PN ---
Progress Note (short form) - Note Progress Note: Renal follow up for XUAN Pt seen and examined at the bedside no acute complaints denies any sob, chest pain making urine Vital Signs Temperature 98.8 F 12/27/17 05:57 Pulse Rate 76 12/27/17 05:57 Respiratory Rate 18 12/27/17 05:57 Blood Pressure 121/67 12/27/17 05:57 O2 Sat by Pulse Oximetry (%) 96 12/26/17 21:00 Intake & Output 12/24/17 12/25/17 12/26/17 12/27/17 23:59 23:59 23:59 23:59 Intake Total 1980 1516 450 500 Output Total 200 1150 1000 Balance 1780 1516 -700 -500 Weight 97.069 kg 97.211 kg NAD RRR Course BS soft, obese Abd Trace to 1+ edema in LE CBC, BMP 12/27/17 09:45 12/27/17 09:45 Current Medications Amoxicillin (Amoxicillin -) 500 mg PO BID [facility] Stop: 12/29/17 21:59 Last Admin: 12/27/17 10:19 Dose: 500 mg Furosemide (Lasix -) 80 mg PO BID@0600,1400 [facility] Last Admin: 12/27/17 06:30 Dose: 80 mg Hydralazine HCl (Apresoline -) 25 mg PO TID KAREN Last Admin: 12/27/17 06:30 Dose: 25 mg Lactulose (Cephulac (Oral Use)) 20 gm PO TID KAREN Last Admin: 12/27/17 06:30 Dose: 20 gm Pantoprazole Sodium (Protonix Iv) 40 mg IVPUSH DAILY [facility] Last Admin: 12/27/17 10:18 Dose: 40 mg Phytonadione (Mephyton -) 5 mg PO DAILY KAREN Last Admin: 12/27/17 10:19 Dose: 5 mg Potassium Chloride (K-Dur -) 40 meq PO DAILY [facility] Last Admin: 12/27/17 10:19 Dose: 40 meq 57 year old gentleman with PMhx of [place], Pulmonary Tb s/p tx who presented with hemoptysis and developed XUAN. #Acute Renal Failure secondary to Cardio-Renal Syndrome +/- Hepato-renal syndrome Renal function is improve and stable pt is off midodrine/octreotide/adlumin continue Lasix 80mg PO BID, titrate as needed as outpatient to maintain evolemia continue KCL 40meq daily will need repeat labs in 3-5 days to follow up with PMD tomorrow our office contact information provided to the patient to make follow up appointment Osman Reid DO
[2017-12-27 12:28] VITALS: BP 154/75; PULSE 75; TEMP 98.7
[2017-12-28 14:02] LABS: % CD 4 POS. LYMPH. 44.5; % CD 8 POS. LYMPH. 26.7; ABS. CD8 SUPPRESSOR 134; ABSOLUTE CD3 352
[2017-12-28 14:03] LABS: %CD3 POS. LYMPH. 70.3; ABSOLUTE CD 4 HELPER 223
== END 2017-12-27 13:49 | disposition home or self-care (01) | DRG 139 ==
LOC: JER 10:51 → JERBED 16:12 → J5W 12-17 00:02 → J4W 12-17 00:55 → JICU 12-19 14:20 → J6S 12-25 14:57
PROVIDERS: ADMIT Family Medicine; ATTEND Nurse Practitioner Family
PROC: 05HM33Z Insertion of Infusion Device into Right Internal Jugular Vein, Percutaneous Approach (ICD-10-PCS; principal; 2017-12-16)
DX: J18.9 Pneumonia, unspecified organism (principal); R01.1 Cardiac murmur, unspecified; I10 Essential (primary) hypertension; B19.10 Unspecified viral hepatitis B without hepatic coma; J90 Pleural effusion, not elsewhere classified; I31.3 Pericardial effusion (noninflammatory); J98.11 Atelectasis; J45.901 Unspecified asthma with (acute) exacerbation; B19.20 Unspecified viral hepatitis C without hepatic coma; D69.6 Thrombocytopenia, unspecified; Z86.718 Personal history of other venous thrombosis and embolism; D68.9 Coagulation defect, unspecified; K80.20 Calculus of gallbladder without cholecystitis without obstruction; K76.6 Portal hypertension; R10.84 Generalized abdominal pain; N17.9 Acute kidney failure, unspecified; K74.60 Unspecified cirrhosis of liver; K76.7 Hepatorenal syndrome; E87.2 Acidosis; I48.91 Unspecified atrial fibrillation; N39.0 Urinary tract infection, site not specified; B95.2 Enterococcus as the cause of diseases classified elsewhere; R41.0 Disorientation, unspecified; J96.01 Acute respiratory failure with hypoxia; I11.0 Hypertensive heart disease with heart failure; I50.21 Acute systolic (congestive) heart failure; E83.39 Other disorders of phosphorus metabolism; E83.41 Hypermagnesemia; E72.20 Disorder of urea cycle metabolism, unspecified; G93.41 Metabolic encephalopathy; I24.8 Other forms of acute ischemic heart disease; Z86.11 Personal history of tuberculosis; Z21 Asymptomatic human immunodeficiency virus [HIV] infection status; D61.818 Other pancytopenia; E87.6 Hypokalemia
CPT/HCPCS: 36415; 36430; 36600; 71045-TC-FY; 71250-TC; 74018-TC-FY; 74176-TC; 76700-TC; 76775-TC; 80048; 80053; 80074; 80076; 81003; 81015; 82140; 82150; 82436; 82550; 82553; 82570; 82803; 83516; 83520; 83605; 83690; 83735; 83874; 84100; 84132; 84133; 84156; 84300; 84439; 84443; 84480; 84481; 84484; 84550; 85025; 85027; 85032; 85610; 85651; 85730; 86038; 86160; 86162; 86256; 86355; 86359; 86360; 86480; 86850; 86900; 86901; 87040; 87070; 87077; 87086; 87116; 87186; 87205; 87206; 87522; 87899; 93005; 93010; 93306-TC; 97116-GP; 97161-GP; 99283-25; J1250; P9034; P9047